=== PATIENT | female | born 1945 | race African-American/Black ===

== ENCOUNTER → 2018-01-08 | Outpatient (CLI) | payer MEDICARE ==
--- NOTE | 2018-01-09 08:33 | US ---
EXAMINATION TYPE: US kidneys/renal and bladder DATE OF EXAM: 01/08/2018 COMPARISON: NONE CLINICAL HISTORY: R31.21 microscopic hematuria. EXAM MEASUREMENTS: Right Kidney: 12.0 x 3.3 x 4.4 cm Left Kidney: 11.5 x 4.5 x 4.9 cm Morbidly obese patient. Right Kidney: No hydronephrosis or masses seen Left Kidney: No hydronephrosis or masses seen Bladder: somewhat obscured by bowel gas IMPRESSION: Unremarkable retroperitoneal ultrasound.
== END | disposition home or self-care (01) ==
LOC: RADUSWWP 15:17
PROVIDERS: ATTEND Family Medicine
DX: R31.21 Asymptomatic microscopic hematuria (principal)
CPT/HCPCS: 76770

== ENCOUNTER 2022-06-27 10:57 | Inpatient (IN) | payer MEDICARE, OTHER ==
--- NOTE | 2022-06-27 11:33 | ED ---
Abdominal Pain HPI - General Chief Complaint: Recheck/Abnormal Lab/Rx Stated Complaint: Feet leg and ABD swelling Time Seen by Provider: 06/27/22 11:08 Source: patient, family, RN notes reviewed Mode of arrival: ambulatory Limitations: no limitations - History of Present Illness Initial Comments: This is a 76-year-old female who presents to the emergency department for abdominal pain and swelling and lower extremity swelling. She was at [facility] for these symptoms 4 days ago. She had imaging done as well as biopsies. At this time there is concern for colon cancer, however definitive diagnosis is still pending per the family's understanding. She did have fluid in her abdomen at that time and had a paracentesis. The fluid has since reaccumulated, and she is complaining of severe abdominal pain. She is having regular bowel movements. Additionally, she has developed swelling in her legs bilaterally. This is also continuing to progress, and she is having pain whenever they are touched or when she tries to walk. Also states that they feel very heavy. Denies any fevers, chills, sore throat, cough, dyspnea, chest pain, palpitations, nausea, vomiting, diarrhea, back pain, or headaches. MD Complaint: abdominal pain Onset/Timin Location: diffuse - Related Data Home Medications Medication Instructions Recorded Confirmed No Known Home Medications 06/27/22 06/27/22 Allergies Allergy/AdvReac Type Severity Reaction Status Date / Time metformin Allergy Vomiting Verified 06/27/22 12:07 Review of Systems ROS Statement: Those systems with pertinent positive or pertinent negative responses have been documented in the HPI. ROS Other: All systems not noted in ROS Statement are negative. Past Medical History Past Medical History: Cancer, Hypertension Additional Past Medical History / Comment(s): CA History of Any Multi-Drug Resistant Organisms: None Reported Past Surgical History: Section Past Psychological History: No Psychological Hx Reported Smoking Status: Never smoker Past Alcohol Use History: None Reported Past Drug Use History: None Reported - Past Family History Father Family Medical History: Diabetes Mellitus Mother Family Medical History: No Reported History Additional Family Medical History / Comment(s): Mother just , she was 98yrs old. Sister(s) Family Medical History: CVA/TIA General Exam Limitations: no limitations General appearance: alert, in no apparent distress Head exam: Present: atraumatic, normocephalic, normal inspection Respiratory exam: Present: normal lung sounds bilaterally. Absent: respiratory distress, wheezes, rales, rhonchi, stridor Cardiovascular Exam: Present: regular rate, normal rhythm, normal heart sounds. Absent: systolic murmur, diastolic murmur, rubs, gallop, clicks GI/Abdominal exam: Present: distended, normal bowel sounds Extremities exam: Present: pedal edema (3+), calf tenderness Neurological exam: Present: alert, oriented X3, CN II-XII intact Psychiatric exam: Present: normal affect, normal mood Skin exam: Present: warm, dry, intact, normal color. Absent: rash Course Vital Signs 06/27/22 11:04 Temperature 97.9 F Pulse Rate 99 Respiratory 20 Rate Blood Pressure 106/63 O2 Sat by Pulse 100 Oximetry Medical Decision Making - Medical Decision Making This is a 76-year-old female who presents to the emergency department for abdominal and bilateral lower extremity pain and swelling. Lab work reveals leukocytosis and several electrolyte abnormalities. CT of the abdomen and pelvis was obtained. 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 She also has a large amount of ascites throughout the abdomen and pelvis. According to the oncology team, she did have a liver biopsy and paracentesis at [facility] earlier this week, and findings were consistent with adenocarcinoma of the colon. Patient will be admitted for therapeutic paracentesis and chemotherapy. I spoke with Katlin Lee from oncology, per her request Dr. Colon was consulted for Mediport placement and the interventional radiology and PICC team were also con consulted, as the patient will need therapeutic paracentesis and PICC line placement to begin chemo as soon as possible. Will also avoid NSAIDs and anticoagulation for the meantime per the oncology team's request. This case was discussed in detail with the attending ED physician. Presentation, findings, and treatment plan discussed in detail as well. - Lab Data Result diagrams: 06/27/22 12:42 06/27/22 12:42 Lab Results 06/27/22 06/27/22 06/27/22 Range/Units 12:42 12:42 12:42 WBC 11.9 H (3.8-10.6) k/uL RBC 3.63 L (3.80-5.40) m/uL Hgb 9.6 L (11.4-16.0) gm/dL Hct 31.5 L (34.0-46.0) % MCV 86.9 (80.0-100.0) fL MCH 26.5 (25.0-35.0) pg MCHC 30.5 L (31.0-37.0) g/dL RDW 16.5 H (11.5-15.5) % Plt Count 352 (150-450) k/uL MPV 7.7 Neutrophils % 83 % Lymphocytes % 7 % Monocytes % 7 % Eosinophils % 1 % Basophils % 1 % Neutrophils # 9.8 H (1.3-7.7) k/uL Lymphocytes # 0.8 L (1.0-4.8) k/uL Monocytes # 0.9 (0-1.0) k/uL Eosinophils # 0.1 (0-0.7) k/uL Basophils # 0.1 (0-0.2) k/uL Hypochromasia Moderate Anisocytosis Slight Sodium 135 L (137-145) mmol/L Potassium 3.9 (3.5-5.1) mmol/L Chloride 101 (98-107) mmol/L Carbon Dioxide 27 (22-30) mmol/L Anion Gap 7 mmol/L BUN 23 H (7-17) mg/dL Creatinine 0.80 (0.52-1.04) mg/dL Est GFR (CKD-EPI)AfAm 82 (>60 ml/min/1.73 sqM) Est GFR (CKD-EPI)NonAf 71 (>60 ml/min/1.73 sqM) Glucose 92 (74-99) mg/dL Calcium 7.7 L (8.4-10.2) mg/dL Total Bilirubin 0.4 (0.2-1.3) mg/dL AST 43 H (14-36) U/L ALT 9 (4-34) U/L Alkaline Phosphatase 62 (38-126) U/L NT-Pro-B Natriuret Pep 688 pg/mL Total Protein 6.0 L (6.3-8.2) g/dL Albumin 2.4 L (3.5-5.0) g/dL Amylase 45 (30-110) U/L Lipase 40 (23-300) U/L - Radiology Data Radiology results: report reviewed, image reviewed Disposition Clinical Impression: Metastatic cancer, Abdominal ascites Disposition: ADMITTED IP TO THIS HOSP
[2022-06-27 12:51] LABS: Anisocytosis Slight; Basophils # (A) 0.1 k/uL (0-0.2); Basophils % (A) 1 %; Eosinophils # (A) 0.1 k/uL (0-0.7); Eosinophils % (A) 1 %; HCT 31.5 % (34.0-46.0); HGB 9.6 gm/dL (11.4-16.0); Hypochromasia Moderate; Lymphocytes # (A) 0.8 k/uL (1.0-4.8); Lymphocytes % (A) 7 %; MCH 26.5 pg (25.0-35.0); MCHC 30.5 g/dL (31.0-37.0); MCV 86.9 fL (80.0-100.0); Mean Platelet Volume 7.7; Monocytes # (A) 0.9 k/uL (0-1.0); Monocytes % (A) 7 %; Neutrophils # (A) 9.8 k/uL (1.3-7.7); Neutrophils % (A) 83 %; Platelet Count 352 k/uL (150-450); RBC 3.63 m/uL (3.80-5.40); RDW 16.5 % (11.5-15.5); WBC 11.9 k/uL (3.8-10.6)
[2022-06-27 13:00] LABS: Albumin 2.4 g/dL (3.5-5.0); Calcium 7.7 mg/dL (8.4-10.2); Potassium 3.9 mmol/L (3.5-5.1); Total Bilirubin 0.4 mg/dL (0.2-1.3)
--- NOTE | 2022-06-27 13:54 | CT ---
EXAMINATION TYPE: CT abdomen pelvis w con DATE OF EXAM: 06/27/2022 COMPARISON: None HISTORY: Abdominal pain and distention. CT DLP: 750.3 mGycm CONTRAST: CT scan of the abdomen and pelvis is performed without Oral Contrast and with IV Contrast, patient in jected with 100ml mL of Isovue 300. FINDINGS: LUNG BASES-: Bilateral pulmonary nodules noted measuring up to 2.2 cm. Small right-sided pleural effu kali seen. LIVER/GB: No calcified gallstones. Large hepatic mass medial segment left hepatic lobe measures 11. 6 x 8.1 x 9.6 cm and is compatible with primary or secondary no additional hepatic masses are seen wi th certainty. Neoplasm. Biliary tree is of normal caliber. PANCREAS: No inflammation. No distinct mass. SPLEEN: No splenic enlargement. No lesion seen. ADRENALS: No nodule. No thickening. KIDNEYS/BLADDER: Mild left-sided hydronephrosis. Abrupt termination of the left ureter at the pelvic inlet which may reflect conglomerate adenopathy in this region. No nephrolithiasis. No distinct salvador l mass. Urinary bladder grossly unremarkable. BOWEL: There is evidence of bowel wall thickening. GENITAL ORGANS: Complex mass within the pelvis measuring 7.2 x 5.6 cm likely reflects right ovarian neoplasm. There is irregularity of the uterus noted as well with calcifications seen. Hypoattenuating lesion left ovary. Suspect underlying ovarian malignancy. LYMPH NODES: No greater than 1cm abdominal or pelvic lymph nodes are appreciated. AORTA: No significant abnormality. OSSEOUS STRUCTURES: No significant abnormality is seen. OTHER: Large amount of ascites throughout the abdomen and pelvis. There is evidence of omental caking and peritoneal seeding. Changes of anasarca. IMPRESSION: 1. Findings felt to reflect metastatic ovarian carcinoma. Neoplasm of other etiology is not excluded. There is evidence of metastatic disease to the lungs the liver the greater omentum as well as perito kirit seeding. Masslike area the left pelvic inlet resulting in mild left-sided hydronephrosis may ref lect matted bowel loops and/or underlying adenopathy.
[2022-06-27] MEDS ORDERED: HYDROcodone/APAP 5-325MG 1 EACH TAB PO PRN (15:44)
[2022-06-27] MEDS ORDERED: ONDANSETRON 4 MG/2 ML VIAL IVP PRN (15:44)
[2022-06-27] MEDS ORDERED: KETOROLAC 15 MG/ML 1 ML VIAL IVP PRN (15:44)
[2022-06-27] MEDS ORDERED: IBUPROFEN 400 MG TAB PO PRN (15:44)
[2022-06-27] MEDS ORDERED: NALOXONE 0.4 MG/ML 1 ML VIAL IV PRN (15:44)
--- NOTE | 2022-06-27 16:23 | P.CONS ---
History of Present Illness - Reason for Consult Consult date: 06/27/22 Metastatic Colon Cancer - History of Present Illness Patient was recently admitted to [facility] with worsening abdominal distention, fatigue and confusion. She was found to have ovarian mass, Liver mass, Ascites and pulmonary nodules consistent with metastatic malignant pricess, Paracentesis and liver biopsy revealed consistent with colon cancer adenocarcinoma. Daughter stated she has been worse since discharge and was brought to [place] ER last night for IVF and supportive care. She is not eating and concern of rapid gr owing cancer, she will be admitted with urgent pallaitive chemotherapy. Discussed in detail with ER Dr. 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 History of Any Multi-Drug Resistant Organisms: None Reported Past Surgical History: Section Additional Past Surgical History / Comment(s): Liver biopsy Past Anesthesia/Blood Transfusion Reactions: No Reported Reaction Past Psychological History: No Psychological Hx Reported Additional Psychological History / Comment(s): Pt resides with her daughter. She uses a walker to ambulate and has a cane and wheelchair. She needs assistance with ADLs. She can feed herself. Smoking Status: Former smoker Past Alcohol Use History: Rare Additional Past Alcohol Use History / Comment(s): Pt started smoking as a teen and quit about 1981. Past Drug Use History: None Reported - Past Family History Father Family Medical History: Diabetes Mellitus Mother Family Medical History: No Reported History Additional Family Medical History / Comment(s): Mother just , she was 98yrs old. Sister(s) Family Medical History: CVA/TIA Medications and Allergies Home Medications Medication Instructions Recorded Confirmed Type No Known Home Medications 06/27/22 06/27/22 History Allergies Allergy/AdvReac Type Severity Reaction Status Date / Time metformin Allergy Vomiting Verified 06/27/22 12:07 Physical Exam Vitals: Vital Signs Temp Pulse Resp BP Pulse Ox 06/27/22 11:04 97.9 F 99 20 106/63 100 Intake and Output 08/06/27/22 06/27/22 06:59 14:59 22:59 Other: Weight 62.596 kg 62.596 kg - Constitutional General appearance: cooperative, mild distress - EENT Eyes: EOMI ENT: NA/AT - Respiratory Respiratory: bilateral: diminished (bases) - Cardiovascular Rhythm: regularly irregular - Gastrointestinal General gastrointestinal: distended, tenderness - Integumentary Integumentary: pale - Musculoskeletal Musculoskeletal: generalized weakness - Psychiatric Psychiatric: A&O x's 3 Results CBC & Chem 7: 06/27/22 12:42 06/27/22 12:42 Labs: Abnormal Lab Results - Last 24 Hours (Table) 06/27/22 06/27/22 Range/Units 12:42 12:42 WBC 11.9 H (3.8-10.6) k/uL RBC 3.63 L (3.80-5.40) m/uL Hgb 9.6 L (11.4-16.0) gm/dL Hct 31.5 L (34.0-46.0) % MCHC 30.5 L (31.0-37.0) g/dL RDW 16.5 H (11.5-15.5) % Neutrophils # 9.8 H (1.3-7.7) k/uL Lymphocytes # 0.8 L (1.0-4.8) k/uL Sodium 135 L (137-145) mmol/L BUN 23 H (7-17) mg/dL Calcium 7.7 L (8.4-10.2) mg/dL AST 43 H (14-36) U/L Total Protein 6.0 L (6.3-8.2) g/dL Albumin 2.4 L (3.5-5.0) g/dL Comments: CT Chest abdomen and pelvis at [facility] reviewed Assessment and Plan (1) Metastatic colon cancer to liver Narrative/Plan: peritoneum, ascites fluid and lungs Patient has dramically worsened since discharged two days prior from [facility] Cytology from ascites positive for adenocarcinoma, Biopsy of liver positive for adenocarcinoma consistent with colon cancer She is now having difficulties remaining outpatient due to the large cancer burden, therefore will start emergent palliaitive chemo inpatient with FOLFIIX Mediport will need to be ordered, however to initiate chemo over weekend with FOLFOX will ask for urgent picc placement Discussed in detail with all of her children and daughter and patient Multiple questions answered, understaning palliaitive intent of treatment. Discussed with PA in ER and asked for urgent Paracentesis for confort as well Current Visit: Yes Status: Acute Code(s): C18.9 - MALIGNANT NEOPLASM OF COLON, UNSPECIFIED; C78.7 - SECONDARY MALIG NEOPLASM OF LIVER AND INTRAHEPATIC BILE DUCT SNOMED Code(s): 171159102 Plan: Check Coags Refrain from NSAIDS and AC for now Increased LFTS, PLan for chemo CAT for comfort measures (Therefore need of Picc line CAT, PAracentesis, and consult to surgery for mediport)
[2022-06-27 19:11] LABS: Partial Thromboplastin Time 23.4 sec (22.0-30.0); Prothrombin Time 10.6 sec (9.0-12.0)
[2022-06-27 19:49] LABS: Magnesium 1.8 mg/dL (1.6-2.3); Uric Acid 8.1 mg/dL (3.7-7.4)
[2022-06-27] MEDS: oxyCODONE-APAP 5-325MG 1 EACH TAB PO PRN (20:57)
[2022-06-28 02:16] LABS: % Iron Saturation 9.1 (12.00-45.00)
--- NOTE | 2022-06-28 08:01 | P.HPIM ---
History of Present Illness H&P Date: 06/27/22 Chief Complaint: Feet leg and ABD swelling 76-year-old female who presents to the emergency department for abdominal pain and swelling and lower extremity swelling. She was at [facility] for these symptoms 4 days ago. She had imaging done as well as biopsies and was found to have ovarian mass, Liver mass, Ascites and pulmonary nodules consistent with metastatic malignant pricess, Paracentesis and liver biopsy revealed consistent with colon cancer adenocarcinoma. She did have fluid in her abdomen at that time and had a paracentesis. The fluid has since reaccumulated, and she is complaining of severe abdominal pain. She is having regular bowel movements. Additionally, she has developed swelling in her legs bilaterally. This is also continuing to progress, and she is having pain whenever they are touched or when she tries to walk. Also states that they feel very heavy. Daughter stated she has been worse since discharge and was brought to [place] ER last night for IVF and supportive care. She is not eating and concern of rapid growing cancer, she will be admitted with urgent pallaitive chemotherapy and therapeutic paracentesis Lab work reveals leukocytosis and several electrolyte abnormalities. CT of the abdomen and pelvis was obtained. 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 She also has a large amount of ascites throughout the abdomen and pelvis. Dr. Colon was consulted for Mediport placement and the interventional radiology and PICC team were also con consulted, as the patient will need therapeutic paracentesis and PICC line placement to begin chemo as soon as possible. Review of Systems REVIEW OF SYSTEMS: CONSTITUTIONAL: No fever, no malaise, no fatigue. HEENT: No recent visual problems or hearing problems. Denied any sore throat. CARDIOVASCULAR: No chest pain, orthopnea, PND, no palpitations, no syncope. PULMONARY: No shortness of breath, no cough, no hemoptysis. GASTROINTESTINAL: Abdominal distention and abdominal pain. NEUROLOGICAL: No headaches, no weakness, no numbness. HEMATOLOGICAL: Denies any bleeding or petechiae. GENITOURINARY: Denies any burning micturition, frequency, or urgency. MUSCULOSKELETAL/RHEUMATOLOGICAL: Denies any joint pain, swelling, or any muscle pain. ENDOCRINE: Denies any polyuria or polydipsia. The rest of the 14-point review of systems is negative. Past Medical History Past Medical History: Cancer, Hypertension Additional Past Medical History / Comment(s): CA History of Any Multi-Drug Resistant Organisms: None Reported Past Surgical History: Section Past Psychological History: No Psychological Hx Reported Smoking Status: Never smoker Past Alcohol Use History: None Reported Past Drug Use History: None Reported - Past Family History Father Family Medical History: Diabetes Mellitus Mother Family Medical History: No Reported History Additional Family Medical History / Comment(s): Mother just , she was 98yrs old. Sister(s) Family Medical History: CVA/TIA Medications and Allergies Home Medications Medication Instructions Recorded Confirmed Type No Known Home Medications 06/27/22 06/27/22 History Allergies Allergy/AdvReac Type Severity Reaction Status Date / Time metformin Allergy Vomiting Verified 06/27/22 12:07 Physical Exam Vitals: Vital Signs Temp Pulse Resp BP Pulse Ox 06/27/22 11:04 97.9 F 99 20 106/63 100 Intake and Output 06/27/22 06/27/22 06/27/22 06:59 14:59 22:59 Other: Weight 62.596 kg General appearance: alert, in no apparent distress Head exam: Present: atraumatic, normocephalic, normal inspection Respiratory exam: Present: normal lung sounds bilaterally. Absent: respiratory distress, wheezes, rales, rhonchi, stridor Cardiovascular Exam: Present: regular rate, normal rhythm, normal heart sounds. Absent: systolic murmur, diastolic murmur, rubs, gallop, clicks GI/Abdominal exam: Present: distended, normal bowel sounds Extremities exam: Present: pedal edema (3+), calf tenderness Neurological exam: Present: alert, oriented X3, CN II-XII intact Psychiatric exam: Present: normal affect, normal mood Skin exam: Present: warm, dry, intact, normal color. Absent: rash Results CBC & Chem 7: 06/27/22 12:42 06/27/22 12:42 Labs: Abnormal Lab Results - Last 24 Hours (Table) 06/27/22 06/27/22 Range/Units 12:42 12:42 WBC 11.9 H (3.8-10.6) k/uL RBC 3.63 L (3.80-5.40) m/uL Hgb 9.6 L (11.4-16.0) gm/dL Hct 31.5 L (34.0-46.0) % MCHC 30.5 L (31.0-37.0) g/dL RDW 16.5 H (11.5-15.5) % Neutrophils # 9.8 H (1.3-7.7) k/uL Lymphocytes # 0.8 L (1.0-4.8) k/uL Sodium 135 L (137-145) mmol/L BUN 23 H (7-17) mg/dL Calcium 7.7 L (8.4-10.2) mg/dL AST 43 H (14-36) U/L Total Protein 6.0 L (6.3-8.2) g/dL Albumin 2.4 L (3.5-5.0) g/dL Assessment and Plan Assessment: 1. Metastatic colon cancer with metastasis to liver, lungs and peritoneum Patient has been evaluated by oncology; Cytology from ascites positive for adenocarcinoma, Biopsy of liver positive for adenocarcinoma consistent with colon cancer She is now having difficulties remaining outpatient due to the large cancer burden, therefore will start emergent palliaitive chemo inpatient with FOLFIIX Mediport will need to be ordered, however to initiate chemo over weekend with FOLFOX will ask for urgent picc placement - Supportive care with antiemetics and pain medication 2. Malignant ascites; patient has large abdominal distention which is comfortable; oncology recommending urgent paracentesis for comfort/therapeutic 3. Hypertension; patient not on any home antihypertensive therapy DVT prophylaxis; SCDs only CODE STATUS; full code
[2022-06-28] MEDS ORDERED: LIDOCAINE 1% INJ 10MG/ML (5 ML VIAL-PF) SQ ONE (08:45)
--- NOTE | 2022-06-28 09:04 | P.PN ---
Progress Note - Text Progress Note Date: 06/28/22 Attempted to see patient on rounds, however patient has been taken to radiology for PICC line placement. Patient is scheduled for paracentesis immediately after this PICC line placement. Consult for surgery was placed for Mediport placement. As the patient is receiving a PICC line, she will begin receiving palliative chemotherapy through the PICC line. To discuss Mediport placement when patient is available. Jaja Colon, DO
[2022-06-28 10:31] LABS: Anisocytosis Slight; Basophils # (A) 0.1 k/uL (0-0.2); Basophils % (A) 1 %; Eosinophils # (A) 0.1 k/uL (0-0.7); Eosinophils % (A) 1 %; HCT 33.8 % (34.0-46.0); HGB 10.3 gm/dL (11.4-16.0); Hypochromasia Moderate; Lymphocytes # (A) 0.8 k/uL (1.0-4.8); Lymphocytes % (A) 8 %; MCH 26.6 pg (25.0-35.0); MCHC 30.4 g/dL (31.0-37.0); MCV 87.5 fL (80.0-100.0); Mean Platelet Volume 7.6; Monocytes # (A) 0.6 k/uL (0-1.0); Monocytes % (A) 7 %; Neutrophils # (A) 7.8 k/uL (1.3-7.7); Neutrophils % (A) 83 %; Platelet Count 333 k/uL (150-450); RBC 3.87 m/uL (3.80-5.40); RDW 16.5 % (11.5-15.5); WBC 9.4 k/uL (3.8-10.6)
[2022-06-28 10:45] LABS: ALT 8 U/L (4-34); AST 38 U/L (14-36); African American GFR (CKD) >90 (>60 ml/min/1.73 sqM); Albumin 2.4 g/dL (3.5-5.0); Albumin/Globulin Ratio 0.7; Alkaline Phosphatase 76 U/L (38-126); Anion Gap 6 mmol/L; Blood Urea Nitrogen 20 mg/dL (7-17); Calcium 7.7 mg/dL (8.4-10.2); Carbon Dioxide 27 mmol/L (22-30); Chloride 102 mmol/L (98-107); Globulin 3.6 g/dL; Glucose 76 mg/dL (74-99); Non-African American GFR(CKD) 81 (>60 ml/min/1.73 sqM); Potassium 4.2 mmol/L (3.5-5.1); Sodium 135 mmol/L (137-145); Total Bilirubin 0.4 mg/dL (0.2-1.3)
--- NOTE | 2022-06-28 13:20 | P.PN ---
Subjective Progress Note Date: 06/28/22 Principal diagnosis: Metastatic colon adenocarcinoma Nolan is a 76-year-old female with a prior history of CVA with no known residual deficits who initially presented to [facility] on 06/19/2022 with progressive abdominal swelling, anasarca the upper extremities bilaterally. Abdominal imaging with CT of abdomen and pelvis without contrast on 06/19/2022 revealed right hepatic lobe mass measuring 10.6 x 8 cm along with a right adnexal mass measuring 4.9 x 5 cm and large amount of ascites. Additional MRI of the abdomen on 06/20/2022 revealed a soft tissue mass near Morison's pouch along the abdominal peritoneal lining measuring 8.1 x 2.9 x 5.1 cm. She underwent diagnostic/therapeutic paracentesis, with cytology being nondiagnostic. CT of the chest on 06/24/2022 revealed multiple bilateral pulmonary nodules and masses notable for a left upper lobe mass measuring 2.6 x 2.6 cm along with a cavitary left mid lung lesion measuring 1.[address]-guided biopsy of the soft tissue mass done on 06/24/2022 revealed moderate to poorly differentiated adenocarcinoma positive for CK 20 and CDX-2 and negative for CK 7, TTF-1, Napsin, and PAX-8. This was consistent with adenocarcinoma of a colon primary. She was discharged on 06/24/2022 from [facility]. Since discharge, she's had persistent anorexia, dehydration, and overall failure to thrive. She was taken to [facility] ED in [place] for IV fluid hydration was subsequently discharged. She's also been noted to have progressive increase in abdominal swelling concerning for recurrent malignant ascites. She was advised to present to [facility] ED for additional evaluation. CT of the abdomen and pelvis with contrast on 06/27/2022 revealed similar findings with right hepatic mass measuring 1.6 x 8.1 x 9.6 cm, right ovarian mass measuring 7.2 x 5.6 cm, and large ascites with omental caking and peritoneal seeding. There is also radiographic concern for left-sided hydronephrosis with abrupt termination of the left ureter potentially due to conglomerate adenopathy. -Underwent therapeutic paracentesis yesterday on admission -No acute events overnight -Had left PICC line placed this morning -Denies any pain currently Objective - Vital Signs Vital signs: Vital Signs Temp 97.4 F L 06/28/22 04:41 Pulse 81 06/28/22 10:10 Resp 19 06/28/22 04:41 BP 119/76 06/28/22 10:10 Pulse Ox 99 06/28/22 04:41 FiO2 Intake & Output 06/27/22 06/28/22 06/28/22 18:59 06:59 18:59 Output Total 1500 Balance -1500 Weight 62.596 kg Output: Gastric Drainage 1500 Other: Voiding Method Bedside Commode Bedside Commode # Voids 1 # Bowel Movements 1 - Constitutional Constitutional Comment(s): Cachectic and fatigued appearing General appearance: Present: no acute distress - Cardiovascular Rhythm: regular Heart sounds: normal: S1, S2 - Gastrointestinal Gastrointestinal Comment(s): Multiple peritoneal nodules in the abdominal wall palpated on exam General gastrointestinal: Present: distended, hepatomegaly. Absent: tenderness - Labs CBC & Chem 7: 06/28/22 10:16 06/28/22 10:16 Labs: Abnormal Lab Results - Last 24 Hours (Table) 06/27/22 06/27/22 06/28/22 Range/Units 12:42 12:42 07:52 Hgb (11.4-16.0) gm/dL Hct (34.0-46.0) % MCHC (31.0-37.0) g/dL RDW (11.5-15.5) % Neutrophils # (1.3-7.7) k/uL Lymphocytes # (1.0-4.8) k/uL Sodium 135 L (137-145) mmol/L BUN 23 H (7-17) mg/dL Uric Acid 8.1 H (3.7-7.4) mg/dL Calcium 7.7 L (8.4-10.2) mg/dL Iron 12 L (50-170) ug/dL TIBC 136 L (228-460) ug/dL % Saturation 9.10 L (12.00-45.00) Transferrin 97.3 L (204.0-354.0) mg/dL AST 43 H (14-36) U/L Lactate Dehydrogenase 733 H (313-618) U/L Total Protein 6.0 L (6.3-8.2) g/dL Albumin 2.4 L (3.5-5.0) g/dL Carcinoembryonic Ag 179.0 H (0.0-4.9) ng/mL Vitamin D 25-Hydroxy 25.9 L (30.0-100.0) ng/mL 06/28/22 06/28/22 Range/Units 10:16 10:16 Hgb 10.3 L (11.4-16.0) gm/dL Hct 33.8 L (34.0-46.0) % MCHC 30.4 L (31.0-37.0) g/dL RDW 16.5 H (11.5-15.5) % Neutrophils # 7.8 H (1.3-7.7) k/uL Lymphocytes # 0.8 L (1.0-4.8) k/uL Sodium 135 L (137-145) mmol/L BUN 20 H (7-17) mg/dL Uric Acid (3.7-7.4) mg/dL Calcium 7.7 L (8.4-10.2) mg/dL Iron (50-170) ug/dL TIBC (228-460) ug/dL % Saturation (12.00-45.00) Transferrin (204.0-354.0) mg/dL AST 38 H (14-36) U/L Lactate Dehydrogenase (313-618) U/L Total Protein 6.0 L (6.3-8.2) g/dL Albumin 2.4 L (3.5-5.0) g/dL Carcinoembryonic Ag (0.0-4.9) ng/mL Vitamin D 25-Hydroxy (30.0-100.0) ng/mL Assessment and Plan Assessment: Ms. Francisco is a 76-year-old female with a past medical history significant for CVA with no residual neurologic deficits who presented to [facility] on 06/19/2022 with progressive ascites and anasarca. 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 Plan: #Metastatic poorly differentiated adenocarcinoma of colon primary -Noted to be CK 20 and CDX-2 positive on liver biopsy performed at [facility] on 06/24/2022 -Has noted to have refractory abdominal ascites and persistent anorexia and dehydration since discharge -Our team spoke to the patient and her daughters regarding her current clinical presentation, with concern that this is all secondary to advanced malignancy -Following our conversation, she was admitted for inpatient chemotherapy -Given her current performance status, we will attempt to give palliative FOLFOX cycle 1 inpatient -She has received therapeutic paracentesis yesterday on admission and PICC line placement today -Consult for port placement has been placed -We anticipate she will begin palliative chemotherapy after the weekend on 06/30/2022 Vicente Tanner MD
--- NOTE | 2022-06-28 21:26 | P.PN ---
Subjective Progress Note Date: 06/28/22 76-year-old female who presents to the emergency department for abdominal pain and swelling and lower extremity swelling. She was at [facility] for these symptoms 4 days ago. She had imaging done as well as biopsies and was found to have ovarian mass, Liver mass, Ascites and pulmonary nodules consistent with metastatic malignant pricess, Paracentesis and liver biopsy revealed consistent with colon cancer adenocarcinoma. She did have fluid in her abdomen at that time and had a paracentesis. The fluid has since reaccumulated, and she is complaining of severe abdominal pain. She is having regular bowel movements. Additionally, she has developed swelling in her legs bilaterally. This is also continuing to progress, and she is having pain whenever they are touched or when she tries to walk. Also states that they feel very heavy. Daughter stated she has been worse since discharge and was brought to [place] ER last night for IVF and supportive care. She is not eating and concern of rapid growing cancer, she will be admitted with urgent pallaitive chemotherapy and therapeutic paracentesis Lab work reveals leukocytosis and several electrolyte abnormalities. CT of the abdomen and pelvis was obtained. 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 She also has a large amount of ascites throughout the abdomen and pelvis. Dr. Colon was consulted for Mediport placement and the interventional radiology and PICC team were also con consulted, as the patient will need therapeutic paracentesis and PICC line placement to begin chemo as soon as possible. Objective - Vital Signs Vital signs: Vital Signs Temp 97.4 F L 06/28/22 04:41 Pulse 84 06/28/22 13:10 Resp 19 06/28/22 04:41 BP 132/84 06/28/22 13:10 Pulse Ox 99 06/28/22 04:41 FiO2 Intake & Output 06/27/22 06/28/22 06/28/22 18:59 06:59 18:59 Output Total 1500 Balance -1500 Weight 62.596 kg Output: Gastric Drainage 1500 Other: Voiding Method Bedside Commode Bedside Commode # Voids 1 # Bowel Movements 1 - Exam General appearance: alert, in no apparent distress Head exam: Present: atraumatic, normocephalic, normal inspection Respiratory exam: Present: normal lung sounds bilaterally. Absent: respiratory distress, wheezes, rales, rhonchi, stridor Cardiovascular Exam: Present: regular rate, normal rhythm, normal heart sounds. Absent: systolic murmur, diastolic murmur, rubs, gallop, clicks GI/Abdominal exam: Present: distended, normal bowel sounds Extremities exam: Present: pedal edema (3+), calf tenderness Neurological exam: Present: alert, oriented X3, CN II-XII intact Psychiatric exam: Present: normal affect, normal mood Skin exam: Present: warm, dry, intact, normal color. Absent: rash - Labs CBC & Chem 7: 06/28/22 10:16 06/28/22 10:16 Labs: Abnormal Lab Results - Last 24 Hours (Table) 06/27/22 06/28/22 06/28/22 Range/Units 12:42 07:52 10:16 Hgb 10.3 L (11.4-16.0) gm/dL Hct 33.8 L (34.0-46.0) % MCHC 30.4 L (31.0-37.0) g/dL RDW 16.5 H (11.5-15.5) % Neutrophils # 7.8 H (1.3-7.7) k/uL Lymphocytes # 0.8 L (1.0-4.8) k/uL Sodium (137-145) mmol/L BUN (7-17) mg/dL Uric Acid 8.1 H (3.7-7.4) mg/dL Calcium (8.4-10.2) mg/dL Iron 12 L (50-170) ug/dL TIBC 136 L (228-460) ug/dL % Saturation 9.10 L (12.00-45.00) Transferrin 97.3 L (204.0-354.0) mg/dL AST (14-36) U/L Lactate Dehydrogenase 733 H (313-618) U/L Total Protein (6.3-8.2) g/dL Albumin (3.5-5.0) g/dL Carcinoembryonic Ag 179.0 H (0.0-4.9) ng/mL Vitamin D 25-Hydroxy 25.9 L (30.0-100.0) ng/mL 06/28/22 Range/Units 10:16 Hgb (11.4-16.0) gm/dL Hct (34.0-46.0) % MCHC (31.0-37.0) g/dL RDW (11.5-15.5) % Neutrophils # (1.3-7.7) k/uL Lymphocytes # (1.0-4.8) k/uL Sodium 135 L (137-145) mmol/L BUN 20 H (7-17) mg/dL Uric Acid (3.7-7.4) mg/dL Calcium 7.7 L (8.4-10.2) mg/dL Iron (50-170) ug/dL TIBC (228-460) ug/dL % Saturation (12.00-45.00) Transferrin (204.0-354.0) mg/dL AST 38 H (14-36) U/L Lactate Dehydrogenase (313-618) U/L Total Protein 6.0 L (6.3-8.2) g/dL Albumin 2.4 L (3.5-5.0) g/dL Carcinoembryonic Ag (0.0-4.9) ng/mL Vitamin D 25-Hydroxy (30.0-100.0) ng/mL Assessment and Plan Assessment: 1. Metastatic colon cancer with metastasis to liver, lungs and peritoneum Patient has been evaluated by oncology; Cytology from ascites positive for adeno carcinoma, Biopsy of liver positive for adenocarcinoma consistent with colon cancer She is now having difficulties remaining outpatient due to the large cancer burden, therefore will start emergent palliaitive chemo inpatient with FOLFIIX Mediport will need to be ordered, however to initiate chemo over weekend with FOLFOX will ask for urgent picc placement - Supportive care with antiemetics and pain medication 2. Malignant ascites; patient has large abdominal distention which is comfortable; oncology recommending urgent paracentesis for comfort/therapeutic 3. Hypertension; patient not on any home antihypertensive therapy DVT prophylaxis; SCDs only CODE STATUS; full code
[2022-06-29] MEDS: oxyCODONE-APAP 5-325MG 1 EACH TAB PO PRN ×2 (01:16→23:16)
[2022-06-29 09:22] LABS: Basophils # (A) 0.05 X 10*3/uL (0.00-0.10); Basophils % (A) 0.5 %; Eosinophils # (A) 0.06 X 10*3/uL (0.04-0.35); Eosinophils % (A) 0.6 %; HCT 29.4 % (37.2-46.3); HGB 9.2 g/dL (12.0-15.0); Immature Grans, Automated 0.4 %; Lymphocytes % (A) 12.3 %; MCH 26.6 pg (27.0-32.0); MCHC 31.3 g/dL (32.0-37.0); Mean Platelet Volume 10.1 fL (9.5-12.2); Monocytes # (A) 1.18 X 10*3/uL (0.20-1.00); Monocytes % (A) 12.1 %; NRBC Per 100 WBC 0 /100 WBCS (0.0-0.0); Neutrophils # (A) 7.21 X 10*3/uL (1.80-7.70); Neutrophils % (A) 74.1 %; Platelet Count 335 X 10*3/uL (140-440); RBC 3.46 X 10*6/uL (4.10-5.20); RDW 17.6 % (11.5-14.5); WBC 9.74 X 10*3/uL (4.50-10.00)
[2022-06-29 09:36] LABS: African American GFR (CKD) 96.3 (60.0-200.0); Anion Gap 7.6 mmol/L (10.00-18.00); BUN/Creat Ratio 24.39 Ratio (12.00-20.00); Calcium 7.9 mg/dL (8.7-10.3); Carbon Dioxide 24.9 mmol/L (20.0-27.5); Non-African American GFR(CKD) 83.1 (60.0-200.0); Potassium 4.2 mmol/L (3.5-5.5)
--- NOTE | 2022-06-29 09:50 | P.GSCN ---
History of Present Illness Consult date: 06/29/22 History of present illness: 76-year-old female with admission secondary to failure to thrive. 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 Based on oncology notes, plan is for palliative chemotherapy. Yesterday, patient did have PICC line placed to begin chemotherapy and also had paracentesis performed to relieve abdominal ascites. Review of Systems All systems: negative Past Medical History Past Medical History: Cancer, Hypertension Additional Past Medical History / Comment(s): CA History of Any Multi-Drug Resistant Organisms: None Reported Past Surgical History: Section Additional Past Surgical History / Comment(s): Liver biopsy Past Anesthesia/Blood Transfusion Reactions: No Reported Reaction Past Psychological History: No Psychological Hx Reported Smoking Status: Never smoker Past Alcohol Use History: None Reported Past Drug Use History: None Reported - Past Family History Father Family Medical History: Diabetes Mellitus Mother Family Medical History: No Reported History Additional Family Medical History / Comment(s): Mother just , she was 98yrs old. Sister(s) Family Medical History: CVA/TIA Medications and Allergies Home Medications Medication Instructions Recorded Confirmed Type No Known Home Medications 06/27/22 06/27/22 History Allergies Allergy/AdvReac Type Severity Reaction Status Date / Time metformin Allergy Vomiting Verified 06/27/22 12:07 Surgical - Exam Osteopathic Statement: *. No significant issues noted on an osteopathic structural exam other than those noted in the History and Physical/Consult. Vital Signs Temp Pulse Resp BP Pulse Ox 97.9 F 99 20 106/63 100 06/27/22 11:04 06/27/22 11:04 06/27/22 11:04 06/27/22 11:04 06/27/22 11:04 - General no distress - Eyes normal ocular movement - Neck trachea midline - Abdomen Abdomen: soft, non tender Results - Labs 06/29/22 04:36 06/29/22 04:36 Abnormal Lab Results - Last 24 Hours (Table) 06/28/22 06/28/22 06/28/22 Range/Units 07:52 10:16 10:16 RBC (4.10-5.20) X 10*6/uL Hgb 10.3 L (11.4-16.0) gm/dL Hct 33.8 L (34.0-46.0) % MCH (27.0-32.0) pg MCHC 30.4 L (31.0-37.0) g/dL RDW 16.5 H (11.5-15.5) % Neutrophils # 7.8 H (1.3-7.7) k/uL Lymphocytes # 0.8 L (1.0-4.8) k/uL Monocytes # (0.20-1.00) X 10*3/uL Sodium 135 L (137-145) mmol/L Anion Gap (10.00-18.00) mmol/L BUN 20 H (7-17) mg/dL BUN/Creatinine Ratio (12.00-20.00) Ratio Calcium 7.7 L (8.4-10.2) mg/dL AST 38 H (14-36) U/L Total Protein 6.0 L (6.3-8.2) g/dL Albumin 2.4 L (3.5-5.0) g/dL Carcinoembryonic Ag 179.0 H (0.0-4.9) ng/mL 06/29/22 06/29/22 Range/Units 04:36 04:36 RBC 3.46 L (4.10-5.20) X 10*6/uL Hgb 9.2 L (11.4-16.0) gm/dL Hct 29.4 L (34.0-46.0) % MCH 26.6 L (27.0-32.0) pg MCHC 31.3 L (31.0-37.0) g/dL RDW 17.6 H (11.5-15.5) % Neutrophils # (1.3-7.7) k/uL Lymphocytes # (1.0-4.8) k/uL Monocytes # 1.18 H (0.20-1.00) X 10*3/uL Sodium 133 L (137-145) mmol/L Anion Gap 7.60 L (10.00-18.00) mmol/L BUN (7-17) mg/dL BUN/Creatinine Ratio 24.39 H (12.00-20.00) Ratio Calcium 7.9 L (8.4-10.2) mg/dL AST (14-36) U/L Total Protein (6.3-8.2) g/dL Albumin (3.5-5.0) g/dL Carcinoembryonic Ag (0.0-4.9) ng/mL Diabetes panel 06/28/22 06/29/22 Range/Units 10:16 04:36 Sodium 135 L 133 L (137-145) mmol/L Potassium 4.2 4.2 (3.5-5.1) mmol/L Chloride 102 101 (98-107) mmol/L Carbon Dioxide 27 24.9 (22-30) mmol/L BUN 20 H 17.0 (7-17) mg/dL Creatinine 0.72 0.7 (0.52-1.04) mg/dL Glucose 76 80 (74-99) mg/dL Calcium 7.7 L 7.9 L (8.4-10.2) mg/dL AST 38 H (14-36) U/L ALT 8 (4-34) U/L Alkaline Phosphatase 76 (38-126) U/L Total Protein 6.0 L (6.3-8.2) g/dL Albumin 2.4 L (3.5-5.0) g/dL Calcium panel 06/28/22 06/29/22 Range/Units 10:16 04:36 Calcium 7.7 L 7.9 L (8.4-10.2) mg/dL Albumin 2.4 L (3.5-5.0) g/dL Pituitary panel 06/28/22 06/29/22 Range/Units 10:16 04:36 Sodium 135 L 133 L (137-145) mmol/L Potassium 4.2 4.2 (3.5-5.1) mmol/L Chloride 102 101 (98-107) mmol/L Carbon Dioxide 27 24.9 (22-30) mmol/L BUN 20 H 17.0 (7-17) mg/dL Creatinine 0.72 0.7 (0.52-1.04) mg/dL Glucose 76 80 (74-99) mg/dL Calcium 7.7 L 7.9 L (8.4-10.2) mg/dL Adrenal panel 06/28/22 06/29/22 Range/Units 10:16 04:36 Sodium 135 L 133 L (137-145) mmol/L Potassium 4.2 4.2 (3.5-5.1) mmol/L Chloride 102 101 (98-107) mmol/L Carbon Dioxide 27 24.9 (22-30) mmol/L BUN 20 H 17.0 (7-17) mg/dL Creatinine 0.72 0.7 (0.52-1.04) mg/dL Glucose 76 80 (74-99) mg/dL Calcium 7.7 L 7.9 L (8.4-10.2) mg/dL Total Bilirubin 0.4 (0.2-1.3) mg/dL AST 38 H (14-36) U/L ALT 8 (4-34) U/L Alkaline Phosphatase 76 (38-126) U/L Total Protein 6.0 L (6.3-8.2) g/dL Albumin 2.4 L (3.5-5.0) g/dL Assessment and Plan Plan: 68-year-old female with metastatic colon cancer. Currently, findings concerning for failure to thrive. PICC line was placed for chemo induction. According to oncology notes, chemotherapy in this case will be palliative. As the PICC line was already placed, I will discuss further with oncology on whether port is necessary at this time, as chemotherapy is for palliative purposes. Further recommendations to follow.
--- NOTE | 2022-06-29 14:27 | P.PN ---
Subjective Progress Note Date: 06/29/22 Principal diagnosis: Metastatic colon adenocarcinoma Nolan is a 76-year-old female with a prior history of CVA with no known residual deficits who initially presented to [facility] on 06/19/2022 with progressive abdominal swelling, anasarca the upper extremities bilaterally. Abdominal imaging with CT of abdomen and pelvis without contrast on 06/19/2022 revealed right hepatic lobe mass measuring 10.6 x 8 cm along with a right adnexal mass measuring 4.9 x 5 cm and large amount of ascites. Additional MRI of the abdomen on 06/20/2022 revealed a soft tissue mass near Morison's pouch along the abdominal peritoneal lining measuring 8.1 x 2.9 x 5.1 cm. She underwent diagnostic/therapeutic paracentesis, with cytology being nondiagnostic. CT of the chest on 06/24/2022 revealed multiple bilateral pulmonary nodules and masses notable for a left upper lobe mass measuring 2.6 x 2.6 cm along with a cavitary left mid lung lesion measuring 1.[address]-guided biopsy of the soft tissue mass done on 06/24/2022 revealed moderate to poorly differentiated adenocarcinoma positive for CK 20 and CDX-2 and negative for CK 7, TTF-1, Napsin, and PAX-8. This was consistent with adenocarcinoma of a colon primary. She was discharged on 06/24/2022 from [facility]. Since discharge, she's had persistent anorexia, dehydration, and overall failure to thrive. She was taken to [facility] in [place] for IV fluid hydration was subsequently discharged. She's also been noted to have progressive increase in abdominal swelling concerning for recurrent malignant ascites. She was advised to present to [facility] ED for additional evaluation. CT of the abdomen and pelvis with contrast on 06/27/2022 revealed similar findings with right hepatic mass measuring 1.6 x 8.1 x 9.6 cm, right ovarian mass measuring 7.2 x 5.6 cm, and large ascites with omental caking and peritoneal seeding. There is also radiographic concern for left-sided hydronephrosis with abrupt termination of the left ureter potentially due to conglomerate adenopathy. -No acute events overnight -Denies any pain currently Objective - Vital Signs Vital signs: Vital Signs Temp 97.6 F 06/29/22 11:41 Pulse 83 06/29/22 11:41 Resp 15 06/29/22 11:41 BP 123/79 06/29/22 11:41 Pulse Ox 99 06/29/22 11:41 FiO2 Intake & Output 06/28/22 06/29/22 06/29/22 18:59 06:59 18:59 Intake Total 780 Output Total 1500 Balance -1500 780 Intake: Oral 780 Output: Gastric Drainage 1500 Other: Voiding Method Bedside Commode Bedside Commode # Voids 3 2 # Bowel Movements 1 1 - Constitutional Constitutional Comment(s): cachectic General appearance: Present: no acute distress, thin - EENT Eyes: Present: EOMI - Respiratory Respiratory: bilateral: CTA - Cardiovascular Rhythm: regular - Gastrointestinal Gastrointestinal Comment(s): Palpable peritoneal deposits in the abdominal wall General gastrointestinal: Present: distended, hepatomegaly, normal bowel sounds - Integumentary Integumentary: Absent: rash - Neurologic Neurologic: Present: CNII-XII intact. Absent: focal deficits - Psychiatric Psychiatric: Present: A&O x's 3 - Labs CBC & Chem 7: 06/29/22 04:36 06/29/22 04:36 Labs: Abnormal Lab Results - Last 24 Hours (Table) 06/29/22 06/29/22 Range/Units 04:36 04:36 RBC 3.46 L (4.10-5.20) X 10*6/uL Hgb 9.2 L (12.0-15.0) g/dL Hct 29.4 L (37.2-46.3) % MCH 26.6 L (27.0-32.0) pg MCHC 31.3 L (32.0-37.0) g/dL RDW 17.6 H (11.5-14.5) % Monocytes # 1.18 H (0.20-1.00) X 10*3/uL Sodium 133 L (135-145) mmol/L Anion Gap 7.60 L (10.00-18.00) mmol/L BUN/Creatinine Ratio 24.39 H (12.00-20.00) Ratio Calcium 7.9 L (8.7-10.3) mg/dL - Imaging and Cardiology CT scan - abdomen: report reviewed, image reviewed Assessment and Plan Assessment: Ms. Francisco is a 76-year-old female with a past medical history significant for CVA with no residual neurologic deficits who presented to [facility] on 06/19/2022 with progressive ascites and anasarca. 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 Plan: #Metastatic poorly differentiated adenocarcinoma of colon primary -Noted to be CK 20 and CDX-2 positive on liver biopsy performed at [facility] on 06/24/2022 -Has noted to have refractory abdominal ascites and persistent anorexia and dehydration since discharge -Our team spoke to the patient and her daughters regarding her current clinical presentation, with concern that this is all secondary to advanced malignancy -Following our conversation, she was admitted for inpatient chemotherapy -Given her current performance status, we will attempt to give palliative FOLFOX cycle 1 inpatient -She has received therapeutic paracentesis and PICC line placement on 06/28/2022 -After discussion with Dr. Colon, we will hold on port placement for now and assess how she will respond to cycle 1 of treatment -I did discuss her overall poor prognosis with her son, who arrived from [facility]. We did discuss that there is high likelihood she may not respond to treatment given her advanced disease. Should that happen, we agreed to focus on palliative measures as opposed to aggressive treatment -We anticipate she will begin palliative chemotherapy on 06/30/2022 #Iron deficiency -Found to have low iron and percent saturation -Ferritin likely falsely elevated given inflammation from disease burden -Will begin IV ferric gluconate 125 mg daily x 3
--- NOTE | 2022-06-29 16:37 | P.PN ---
Progress Note - Text Progress Note Date: 06/29/22 Case was discussed with Dr. Tanner. As the patient already has a PICC line placed, this will be used for induction of chemotherapy. We will assess how the patient is tolerating the first cycle of chemotherapy and if any anticipation for longer term requirement of intravenous access, we will plan for Mediport placement. Jaja Colon, DO
--- NOTE | 2022-06-29 18:11 | P.PN ---
Subjective Progress Note Date: 06/29/22 76-year-old female who presents to the emergency department for abdominal pain and swelling and lower extremity swelling. She was at [facility] for these symptoms 4 days ago. She had imaging done as well as biopsies and was found to have ovarian mass, Liver mass, Ascites and pulmonary nodules consistent with metastatic malignant pricess, Paracentesis and liver biopsy revealed consistent with colon cancer adenocarcinoma. She did have fluid in her abdomen at that time and had a paracentesis. The fluid has since reaccumulated, and she is complaining of severe abdominal pain. She is having regular bowel movements. Additionally, she has developed swelling in her legs bilaterally. This is also continuing to progress, and she is having pain whenever they are touched or when she tries to walk. Also states that they feel very heavy. Daughter stated she has been worse since discharge and was brought to [place] ER last night for IVF and supportive care. She is not eating and concern of rapid growing cancer, she will be admitted with urgent pallaitive chemotherapy and therapeutic paracentesis Lab work reveals leukocytosis and several electrolyte abnormalities. CT of the abdomen and pelvis was obtained. 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 She also has a large amount of ascites throughout the abdomen and pelvis. Dr. Colon was consulted for Mediport placement and the interventional radiology and PICC team were also con consulted, as the patient will need therapeutic paracentesis and PICC line placement to begin chemo as soon as possible. 06/29/2022 Patient is seen and evaluated resting comfortably in bed; family members are at bedside Patient has biopsy-proven poorly differentiated adenocarcinoma the colon with metastases to liver, peritoneum, right ovary and lungs; has been admitted to the hospital for refractory abdominal ascites and failure to thrive; patient has undergone paracentesis with removal of 1.5 L of fluid Oncology on board and planning for palliative chemotherapy; PICC line is in place Objective - Vital Signs Vital signs: Vital Signs Temp 97.6 F 06/29/22 11:41 Pulse 83 06/29/22 11:41 Resp 15 06/29/22 11:41 BP 123/79 06/29/22 11:41 Pulse Ox 99 06/29/22 11:41 FiO2 Intake & Output 06/28/22 06/29/22 06/29/22 18:59 06:59 18:59 Intake Total 780 Output Total 1500 Balance -1500 780 Intake: Oral 780 Output: Gastric Drainage 1500 Other: Voiding Method Bedside Commode Bedside Commode # Voids 3 2 # Bowel Movements 1 1 - Exam General appearance: alert, in no apparent distress Head exam: Present: atraumatic, normocephalic, normal inspection Respiratory exam: Present: normal lung sounds bilaterally. Absent: respiratory distress, wheezes, rales, rhonchi, stridor Cardiovascular Exam: Present: regular rate, normal rhythm, normal heart sounds. Absent: systolic murmur, diastolic murmur, rubs, gallop, clicks GI/Abdominal exam: Present: distended, normal bowel sounds Extremities exam: Present: pedal edema (3+), calf tenderness Neurological exam: Present: alert, oriented X3, CN II-XII intact Psychiatric exam: Present: normal affect, normal mood Skin exam: Present: warm, dry, intact, normal color. Absent: rash - Labs CBC & Chem 7: 06/29/22 04:36 06/29/22 04:36 Labs: Abnormal Lab Results - Last 24 Hours (Table) 06/28/22 06/29/22 06/29/22 Range/Units 07:52 04:36 04:36 RBC 3.46 L (4.10-5.20) X 10*6/uL Hgb 9.2 L (12.0-15.0) g/dL Hct 29.4 L (37.2-46.3) % MCH 26.6 L (27.0-32.0) pg MCHC 31.3 L (32.0-37.0) g/dL RDW 17.6 H (11.5-14.5) % Monocytes # 1.18 H (0.20-1.00) X 10*3/uL Sodium 133 L (135-145) mmol/L Anion Gap 7.60 L (10.00-18.00) mmol/L BUN/Creatinine Ratio 24.39 H (12.00-20.00) Ratio Calcium 7.9 L (8.7-10.3) mg/dL Carcinoembryonic Ag 179.0 H (0.0-4.9) ng/mL Assessment and Plan Assessment: 1. Metastatic colon cancer with metastasis to liver, lungs and peritoneum Patient has been evaluated by oncology; Cytology from ascites positive for adenocarcinoma, Biopsy of liver positive for adenocarcinoma consistent with colon cancer She is now having difficulties remaining outpatient due to the large cancer burden, therefore will start emergent palliaitive chemo inpatient with FOLFIIX Mediport will need to be ordered, however to initiate chemo over weekend with FOLFOX will ask for urgent picc placement - Supportive care with antiemetics and pain medication 2. Malignant ascites; patient has large abdominal distention which is comfortable; oncology recommending urgent paracentesis for comfort/therapeutic 3. Hypertension; patient not on any home antihypertensive therapy DVT prophylaxis; SCDs only CODE STATUS; full code
[2022-06-29] MEDS ORDERED: SODIUM FERRIC GLUCONAT-SUCROSE 125 MG in SODIUM CHLORIDE 0.9% 100 ML IVPB SCH (19:00)
[2022-06-30] MEDS ORDERED: fentaNYL (PF) 50 MCG/ML 2 ML AMP IV PRN (05:59)
--- NOTE | 2022-06-30 08:44 | US ---
Ultrasound-guided paracentesis. DATE OF EXAM: 06/28/2022 CLINICAL HISTORY: Ascites The procedure was discussed with the patient. The risks, complications, benefits, and alternatives we re discussed and any questions were answered. Informed consent was obtained. The patient was placed s upine on the ultrasound table and prepped and draped in the usual sterile fashion. All elements of maximal barrier technique were utilized. Under ultrasound guidance, access into the left lower quadrant was obtained, via the paracentesis catheter system and direct ultrasound guidance . Approximately 1.5 liters of straw-colored fluid was removed. The patient was stable throughout the pr ocedure and remained stable upon discharge from Department of Radiology. IMPRESSION: Successful paracentesis under ultrasound guidance.
--- NOTE | 2022-06-30 08:49 | IR ---
PICC LINE PLACEMENT: HISTORY: Infection requiring long-term antibiotic therapy PROCEDURE: Ultrasound and fluoroscopic guidance of PICC line placement. COMPLICATIONS: None ANESTHESIA: 1. 1% Lidocaine locally. FINDINGS/TECHNIQUE: The procedure was explained to the patient. The risks, complications, benefits and alternatives were discussed and any questions were answered. Informed consent was obtained. The patient was placed supine on the fluoroscopic table and prepped and draped in the usual sterile fash ion. Utilizing a 21 gauge needle and sonographic and fluoroscopic guidance, access in the left brac hial vein was achieved and there is placement of a 0.018 guidewire. The vein is patent. A 4-F sheat h was placed over the guidewire. The guidewire and dilator were removed and a 4-F. PICC line was christiana nadya through the sheath with the tip at the level of the SVC. The sheath was removed, the catheter wa s flushed and sutured into position. The patient was stable throughout the procedure and remained st able upon discharge from the Department of Radiology. The vein puncture was patent under ultrasound. A jones scale image was obtained to document patency of the vein punctured. All elements of the maximal barrier technique were utilized. FLUOROSCOPY TIME: 0.1 minutes and one image submitted IMPRESSION: Successful PICC line placement under ultrasound and fluoroscopic guidance.
[2022-06-30] MEDS: LACTATED RINGERS 1,000 ML IV SCH (08:59)
[2022-06-30] MEDS: SODIUM FERRIC GLUCONAT-SUCROSE 125 MG in SODIUM CHLORIDE 0.9% 100 ML IVPB SCH ×2 (09:01→12:39)
[2022-06-30 09:12] LABS: Basophils # (A) 0.06 X 10*3/uL (0.00-0.10); Basophils % (A) 0.6 %; Eosinophils # (A) 0.07 X 10*3/uL (0.04-0.35); Eosinophils % (A) 0.7 %; HCT 28.4 % (37.2-46.3); HGB 8.7 g/dL (12.0-15.0); Immature Grans, Automated 0.3 %; Lymphocytes # (A) 1.34 X 10*3/uL (0.90-5.00); Lymphocytes % (A) 14.1 %; MCH 26.3 pg (27.0-32.0); MCHC 30.6 g/dL (32.0-37.0); MCV 85.8 fL (80.0-97.0); Mean Platelet Volume 10.3 fL (9.5-12.2); Monocytes % (A) 11.6 %; NRBC Per 100 WBC 0 /100 WBCS (0.0-0.0); Neutrophils # (A) 6.92 X 10*3/uL (1.80-7.70); Neutrophils % (A) 72.7 %; Platelet Count 324 X 10*3/uL (140-440); RBC 3.31 X 10*6/uL (4.10-5.20); RDW 17.3 % (11.5-14.5); WBC 9.52 X 10*3/uL (4.50-10.00)
[2022-06-30 09:29] LABS: African American GFR (CKD) 96.2 (60.0-200.0); Albumin/Globulin Ratio 0.59 (1.60-3.17); Anion Gap 7.4 mmol/L (10.00-18.00); BUN/Creat Ratio 18.71 Ratio (12.00-20.00); Blood Urea Nitrogen 13.1 mg/dL (9.0-27.0); Calcium 7.8 mg/dL (8.7-10.3); Carbon Dioxide 24.6 mmol/L (20.0-27.5); Globulin 3.4 g/dL (1.6-3.3); Potassium 4.4 mmol/L (3.5-5.5); Total Bilirubin 0.3 mg/dL (0.30-1.20); Total Protein 5.4 g/dL (6.2-8.2)
[2022-06-30] MEDS ORDERED: FAMOTIDINE 20 MG/2 ML VIAL IV ONE (15:00)
[2022-06-30] MEDS ORDERED: ONDANSETRON 16 MG in SODIUM CHLORIDE 0.9% 50 ML IVPB ONE (15:00)
[2022-06-30] MEDS ORDERED: DEXAMETHASONE SOD PHOSPHATE 10 MG/ML 1 ML VIAL IV ONE (15:00)
[2022-06-30] MEDS ORDERED: OXALIPLATIN IV ONE ×3 (16:00)
[2022-06-30] MEDS ORDERED: LEUCOVORIN IV ONE ×3 (16:00)
[2022-06-30] MEDS ORDERED: WATER IV ONE ×6 (16:00)
[2022-06-30] MEDS ORDERED: DEXTROSE 5% IV ONE ×6 (16:00)
--- NOTE | 2022-06-30 16:35 | P.PN ---
Subjective Progress Note Date: 06/30/22 Principal diagnosis: metastatic colon adenocarcinoma In follow-up today, patient denies any nausea, vomiting, abdominal distention persists but she denies any pain. She has not ate yet this morning but states she does have an appetite. She does recall that palliative chemotherapy was going to start today. Objective - Vital Signs Vital signs: Vital Signs Temp 97.8 F 06/30/22 11:25 Pulse 65 06/30/22 11:25 Resp 16 06/30/22 11:25 BP 152/92 06/30/22 11:25 Pulse Ox 100 06/30/22 11:25 FiO2 Intake & Output 06/29/22 06/30/22 06/30/22 18:59 06:59 18:59 Intake Total 0 Balance 0 Intake: Oral 0 Other: Voiding Method Bedside Commode Bedside Commode Bedside Commode # Voids 3 0 - Constitutional General appearance: Present: cooperative, no acute distress, thin - EENT Eyes: Present: anicteric sclerae, EOMI ENT: Present: hearing grossly normal - Respiratory Respiratory: bilateral: CTA, diminished (bases) - Cardiovascular Rhythm: regular Heart sounds: normal: S1, S2 - Peripheral edema leg Peripheral Edema: bilateral: 1+ - Gastrointestinal General gastrointestinal: Present: distended, normal bowel sounds, soft - Neurologic Neurologic: Present: CNII-XII intact (grossly) - Musculoskeletal Musculoskeletal: Present: generalized weakness, strength equal bilaterally - Psychiatric Psychiatric: Present: A&O x's 3, appropriate affect, intact judgment & insight - Labs CBC & Chem 7: 06/30/22 04:52 06/30/22 04:52 Labs: Abnormal Lab Results - Last 24 Hours (Table) 06/30/22 06/30/22 Range/Units 04:52 04:52 RBC 3.31 L (4.10-5.20) X 10*6/uL Hgb 8.7 L (12.0-15.0) g/dL Hct 28.4 L (37.2-46.3) % MCH 26.3 L (27.0-32.0) pg MCHC 30.6 L (32.0-37.0) g/dL RDW 17.3 H (11.5-14.5) % Monocytes # 1.10 H (0.20-1.00) X 10*3/uL Anion Gap 7.40 L (10.00-18.00) mmol/L Calcium 7.8 L (8.7-10.3) mg/dL AST 36 H (13-35) U/L ALT 5 L (8-44) U/L Total Protein 5.4 L (6.2-8.2) g/dL Albumin 2.0 L (3.8-4.9) g/dL Globulin 3.4 H (1.6-3.3) g/dL Albumin/Globulin Ratio 0.59 L (1.60-3.17) g/dL Assessment and Plan (1) Abdominal ascites Current Visit: Yes Status: Acute Priority: High Code(s): R18.8 - OTHER ASCITES SNOMED Code(s): 504653754 (2) Metastatic colon cancer to liver Current Visit: Yes Status: Acute Priority: High Code(s): C18.9 - MALIGNANT NEOPLASM OF COLON, UNSPECIFIED; C78.7 - SECONDARY MALIG NEOPLASM OF LIVER AND INTRAHEPATIC BILE DUCT SNOMED Code(s): 312326414 Plan: Patient is status post 1.5 L of fluid removed from the abdomen. She does have relief of distention and discomfort in the abdomen. Orders sent to start FOLFOX without 5-FU bolus. Patient has had a left upper extremity PICC line placed. Patient did receive parenteral iron for iron deficient anemia. Labs will continue to be monitored while inpatient. Will address code status with pt when family is present. attests: I preformed H&P, seen and examined patient, developed impression and plan of care. Discussed with dictator. Agree with dictation, documented as a scribe
[2022-06-30] MEDS ORDERED: SODIUM CHLORIDE 0.9% IV ONE (18:00)
[2022-06-30] MEDS ORDERED: FLUOROURACIL IV ONE (18:00)
[2022-06-30] MEDS: oxyCODONE-APAP 5-325MG 1 EACH TAB PO PRN (21:21)
--- NOTE | 2022-07-01 00:32 | P.PN ---
Subjective Progress Note Date: 06/30/22 76-year-old female who presents to the emergency department for abdominal pain and swelling and lower extremity swelling. She was at [facility] for these symptoms 4 days ago. She had imaging done as well as biopsies and was found to have ovarian mass, Liver mass, Ascites and pulmonary nodules consistent with metastatic malignant pricess, Paracentesis and liver biopsy revealed consistent with colon cancer adenocarcinoma. She did have fluid in her abdomen at that time and had a paracentesis. The fluid has since reaccumulated, and she is complaining of severe abdominal pain. She is having regular bowel movements. Additionally, she has developed swelling in her legs bilaterally. This is also continuing to progress, and she is having pain whenever they are touched or when she tries to walk. Also states that they feel very heavy. Daughter stated she has been worse since discharge and was brought to [place] ER last night for IVF and supportive care. She is not eating and concern of rapid growing cancer, she will be admitted with urgent pallaitive chemotherapy and therapeutic paracentesis Lab work reveals leukocytosis and several electrolyte abnormalities. CT of the abdomen and pelvis was obtained. 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 She also has a large amount of ascites throughout the abdomen and pelvis. Dr. Colon was consulted for Mediport placement and the interventional radiology and PICC team were also con consulted, as the patient will need therapeutic paracentesis and PICC line placement to begin chemo as soon as possible. 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 Colon following. Plan was for possible mediport placement although has received a PICC line and will hold of on mediport for now. Patient is status post paracentesis with ascites and reports her abdomen pain and distention has improved. Patient reports to tolerating diet. No reports of nausea or vomiting noted. Patient is afebrile and denies chest pain or shortness of breath. Patient is to start palliative chemo today. Recommend repeat am labs. Review of systems: Constitutional: No reports of fatigue, fever, or chills Cardiovascular: No reports of chest pain or palpitations Respiratory: No reports of shortness of breath or cough GI: No reports of nausea, vomiting, or diarrhea, reports improvement in abdominal pain and distention : No reports of dysuria or retention Neurovascular: reports of generalized weakness All medications have been reviewed Active Medications Hydrocodone Bitart/Acetaminophen (Hydrocodone/Apap 5-325mg 1 Each Tab) 1 each PO Q4HR PRN PRN Reason: Moderate Pain Fentanyl Citrate (Fentanyl (Pf) 50 Mcg/Ml 2 Ml Amp) 50 mcg IV Q3M PRN PRN Reason: Phase I - Pain Control Stop: 07/01/22 06:00 Lactated Ringer's (Lactated Ringers) 1,000 mls @ 20 mls/hr IV .Q24H [facility] Last Admin: 06/30/22 08:59 Dose: Not Given Ferric Sodium Gluconate 125 mg (/ Sodium Chloride) 110 mls @ 100 mls/hr IVPB DAILY [facility] Last Admin: 06/30/22 09:01 Dose: 100 mls/hr Naloxone HCl (Naloxone 0.4 Mg/Ml 1 Ml Vial) 0.2 mg IV Q2M PRN PRN Reason: Opioid Reversal Ondansetron HCl (Ondansetron 4 Mg/2 Ml Vial) 4 mg IVP Q8HR PRN PRN Reason: Nausea And Vomiting Oxycodone/Acetaminophen (Oxycodone-Apap 5-325mg 1 Each Tab) 1 each PO Q4HR PRN PRN Reason: Severe Pain Last Admin: 06/29/22 23:16 Dose: 1 each Physical exam: General appearance: alert, lying in bed, well developed, well nourished Head exam: Present: atraumatic, normocephalic, normal inspection Respiratory exam: diminished breath sounds bilaterally with no wheezing or rhonchi noted Cardiovascular Exam: S1, S2 muffled GI/Abdominal exam: soft, mildly distended, normal bowel sounds, no guarding or rigidity noted Extremities exam: pedal edema (3+), calf tenderness Neurological exam: alert, oriented X3, CN II-XII intact Psychiatric exam: normal affect, normal mood Skin exam: warm, dry, intact, normal color. Absent: rash Assessment: Metastatic colon cancer with metastasis to liver, lungs and peritoneum Malignant ascites; status post paracentesis of 1.5 liters removed on 06/28 Hypertension DVT prophylaxis GI prophylaxis full code Plan: Patient has received a PICC line and is to start palliative chemotherapy ONcology following and chemo will be started today, to address code status with family as patient is full code at this time Patient is status post paracentesis for ascites and reports to feeling better and hungry, able to eat Encouraged increased activity as tolerated. Recommend to closely monitor labs and vital signs. Labs ordered for am. Due to multiple complex medical issues, overall prognosis is extremely guarded. The impression and plan of care has been dictated by Gretel George, Nurse Practitioner as directed. Dr. Darryn MD I have performed a history and examination and MDM of this patient, discussed the same with the dictator, and agree with the dictator's assessment and plan as written ,documented as a scribe. Based on total visit time, I have performed more than 50% of the visit. Objective - Vital Signs Vital signs: Vital Signs Temp 97.9 F 06/30/22 05:00 Pulse 76 06/30/22 05:00 Resp 18 06/30/22 05:00 BP 149/82 06/30/22 05:00 Pulse Ox 97 06/30/22 05:00 FiO2 Intake & Output 06/29/22 06/30/22 06/30/22 18:59 06:59 18:59 Intake Total 0 Balance 0 Intake: Oral 0 Other: Voiding Method Bedside Commode Bedside Commode Bedside Commode # Voids 3 0 - Labs CBC & Chem 7: 06/30/22 04:52 06/30/22 04:52 Labs: Abnormal Lab Results - Last 24 Hours (Table) 06/30/22 06/30/22 Range/Units 04:52 04:52 RBC 3.31 L (4.10-5.20) X 10*6/uL Hgb 8.7 L (12.0-15.0) g/dL Hct 28.4 L (37.2-46.3) % MCH 26.3 L (27.0-32.0) pg MCHC 30.6 L (32.0-37.0) g/dL RDW 17.3 H (11.5-14.5) % Monocytes # 1.10 H (0.20-1.00) X 10*3/uL Anion Gap 7.40 L (10.00-18.00) mmol/L Calcium 7.8 L (8.7-10.3) mg/dL AST 36 H (13-35) U/L ALT 5 L (8-44) U/L Total Protein 5.4 L (6.2-8.2) g/dL Albumin 2.0 L (3.8-4.9) g/dL Globulin 3.4 H (1.6-3.3) g/dL Albumin/Globulin Ratio 0.59 L (1.60-3.17) g/dL
[2022-07-01] MEDS: LACTATED RINGERS 1,000 ML IV SCH (05:57)
[2022-07-01] MEDS: SODIUM FERRIC GLUCONAT-SUCROSE 125 MG in SODIUM CHLORIDE 0.9% 100 ML IVPB SCH (08:39)
[2022-07-01 10:22] LABS: Basophils # (A) 0.02 X 10*3/uL (0.00-0.10); Basophils % (A) 0.2 %; Eosinophils # (A) 0 X 10*3/uL (0.04-0.35); Eosinophils % (A) 0 %; HCT 32.8 % (37.2-46.3); HGB 10.1 g/dL (12.0-15.0); Immature Grans, Automated 0.4 %; Lymphocytes # (A) 0.77 X 10*3/uL (0.90-5.00); Lymphocytes % (A) 6.3 %; MCHC 30.8 g/dL (32.0-37.0); MCV 84.5 fL (80.0-97.0); Monocytes # (A) 0.38 X 10*3/uL (0.20-1.00); Monocytes % (A) 3.1 %; NRBC Per 100 WBC 0 /100 WBCS (0.0-0.0); Neutrophils # (A) 10.96 X 10*3/uL (1.80-7.70); Platelet Count 305 X 10*3/uL (140-440); RBC 3.88 X 10*6/uL (4.10-5.20); RDW 17.5 % (11.5-14.5); WBC 12.18 X 10*3/uL (4.50-10.00)
[2022-07-01 10:40] LABS: African American GFR (CKD) 96.2 (60.0-200.0); Albumin 2.5 g/dL (3.8-4.9); Albumin/Globulin Ratio 0.68 (1.60-3.17); Anion Gap 8.8 mmol/L (10.00-18.00); BUN/Creat Ratio 18.57 Ratio (12.00-20.00); Calcium 8.1 mg/dL (8.7-10.3); Carbon Dioxide 24.2 mmol/L (20.0-27.5); Globulin 3.7 g/dL (1.6-3.3); Potassium 5.1 mmol/L (3.5-5.5); Total Bilirubin 0.3 mg/dL (0.30-1.20); Total Protein 6.2 g/dL (6.2-8.2)
[2022-07-01] MEDS: oxyCODONE-APAP 5-325MG 1 EACH TAB PO PRN (15:55)
--- NOTE | 2022-07-01 15:56 | P.PN ---
Subjective Progress Note Date: 07/01/22 Principal diagnosis: metastatic colon adenocarcinoma In follow-up today, patient is in good spirits, she denies any side effects from chemo, no new c/o. She is wanting food made by her son. No other c/o. Objective - Vital Signs Vital signs: Vital Signs Temp 97.5 F L 07/01/22 12:02 Pulse 84 07/01/22 12:02 Resp 16 07/01/22 12:02 BP 152/87 07/01/22 12:02 Pulse Ox 100 07/01/22 12:02 FiO2 Intake & Output 06/30/22 07/01/22 07/01/22 18:59 06:59 18:59 Intake Total 662 Balance 662 Intake: Intake, IV Titration 62 Amount fluorouraciL 3,950 mg In 62 Sodium Chloride 0.9% 250 ml @ 7.152 mls/hr IV ONCE ONE Rx#:[id number] Oral 600 Other: Voiding Method Bedside Commode Bedside Commode # Voids 2 2 - Constitutional General appearance: Present: cooperative, no acute distress, thin (petite) - EENT Eyes: Present: anicteric sclerae, EOMI ENT: Present: hearing grossly normal - Respiratory Respiratory: bilateral: CTA - Cardiovascular Rhythm: regular Heart sounds: normal: S1, S2 Abnormal Heart Sounds: Absent: systolic murmur, diastolic murmur, rub, S3 Gallop, S4 Gallop, click, other - Gastrointestinal General gastrointestinal: Present: distended, normal bowel sounds, soft - Neurologic Neurologic: Present: CNII-XII intact - Musculoskeletal Musculoskeletal: Present: strength equal bilaterally - Psychiatric Psychiatric: Present: A&O x's 3, appropriate affect, intact judgment & insight - Labs CBC & Chem 7: 07/01/22 05:13 07/01/22 05:13 Labs: Abnormal Lab Results - Last 24 Hours (Table) 06/28/22 07/01/22 07/01/22 Range/Units 07:52 05:13 05:13 WBC 12.18 H (4.50-10.00) X 10*3/uL RBC 3.88 L (4.10-5.20) X 10*6/uL Hgb 10.1 L (12.0-15.0) g/dL Hct 32.8 L (37.2-46.3) % MCH 26.0 L (27.0-32.0) pg MCHC 30.8 L (32.0-37.0) g/dL RDW 17.5 H (11.5-14.5) % Immature Gran # 0.05 H (0.00-0.04) X 10*3/uL Neutrophils # 10.96 H (1.80-7.70) X 10*3/uL Lymphocytes # 0.77 L (0.90-5.00) X 10*3/uL Eosinophils # 0 L (0.04-0.35) X 10*3/uL Sodium 131 L (135-145) mmol/L Anion Gap 8.80 L (10.00-18.00) mmol/L Calcium 8.1 L (8.7-10.3) mg/dL Albumin 2.5 L (3.8-4.9) g/dL Globulin 3.7 H (1.6-3.3) g/dL Albumin/Globulin Ratio 0.68 L (1.60-3.17) g/dL Vitamin B1 31 L (38-122) ug/L Assessment and Plan (1) Abdominal ascites Current Visit: Yes Status: Acute Priority: High Code(s): R18.8 - OTHER ASCITES SNOMED Code(s): 102176258 (2) Metastatic colon cancer to liver Current Visit: Yes Status: Acute Priority: High Code(s): C18.9 - MALIGNANT NEOPLASM OF COLON, UNSPECIFIED; C78.7 - SECONDARY MALIG NEOPLASM OF LIVER AND INTRAHEPATIC BILE DUCT SNOMED Code(s): 143514929 Plan: Patient is status post 1.5 L of fluid removed from the abdomen on the 2nd. She cont to have relief of distention and discomfort in the abdomen post para. FOLFOX without 5-FU bolus started yesterday, she is currently on the 46 hour 5FU infusion. No significant SE reported. She will complete 1st cycle tomorrow. LUE PICC line. Patient did receive parenteral iron for iron deficient anemia. Labs will continue to be monitored while inpatient. attests: I preformed H&P, seen and examined patient, developed impression and plan of care. Discussed with dictator. Agree with dictation, documented as a scribe
[2022-07-01] MEDS: THIAMINE 100 MG TAB PO SCH (18:12)
--- NOTE | 2022-07-02 04:34 | P.PN ---
Subjective Progress Note Date: 07/01/22 76-year-old female who presents to the emergency department for abdominal pain and swelling and lower extremity swelling. She was at [facility] for these symptoms 4 days ago. She had imaging done as well as biopsies and was found to have ovarian mass, Liver mass, Ascites and pulmonary nodules consistent with metastatic malignant pricess, Paracentesis and liver biopsy revealed consistent with colon cancer adenocarcinoma. She did have fluid in her abdomen at that time and had a paracentesis. The fluid has since reaccumulated, and she is complaining of severe abdominal pain. She is having regular bowel movements. Additionally, she has developed swelling in her legs bilaterally. This is also continuing to progress, and she is having pain whenever they are touched or when she tries to walk. Also states that they feel very heavy. Daughter stated she has been worse since discharge and was brought to [place] ER last night for IVF and supportive care. She is not eating and concern of rapid growing cancer, she will be admitted with urgent pallaitive chemotherapy and therapeutic paracentesis Lab work reveals leukocytosis and several electrolyte abnormalities. CT of the abdomen and pelvis was obtained. 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 She also has a large amount of ascites throughout the abdomen and pelvis. Dr. Colon was consulted for Mediport placement and the interventional radiology and PICC team were also con consulted, as the patient will need therapeutic paracentesis and PICC line placement to begin chemo as soon as possible. 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 Colon following. Plan was for possible mediport placement although has received a PICC line and will hold of on mediport for now. Patient is status post paracentesis with ascites and reports her abdomen pain and distention has improved. Patient reports to tolerating diet. No reports of nausea or vomiting noted. Patient is afebrile and denies chest pain or shortness of breath. Patient is to start palliative chemo today. Recommend repeat am labs. 07/01/2022 Patient is seen this morning and continued on palliative chemotherapy with oncology following closely. Patient denies abdominal pain and reports to tolerating diet with no nausea or vomiting noted. Patient is afebrile and noted increase in WBC. Hemoglobin is stable. Sodium on the lower side and recommend to monitor closely. No chest pain or shortness of breath noted. Encouraged increased activity as tolerated. PT/OT evaluation. Review of systems: Constitutional: No reports of fatigue, fever, or chills Cardiovascular: No reports of chest pain or palpitations Respiratory: No reports of shortness of breath or cough GI: No reports of nausea, vomiting, or diarrhea, reports improvement in abdominal pain and distention : No reports of dysuria or retention Neurovascular: reports of generalized weakness All medications have been reviewed Active Medications Hydrocodone Bitart/Acetaminophen (Hydrocodone/Apap 5-325mg 1 Each Tab) 1 each PO Q4HR PRN PRN Reason: Moderate Pain Lactated Ringer's (Lactated Ringers) 1,000 mls @ 20 mls/hr IV .Q24H [facility] Last Admin: 07/01/22 05:57 Dose: Not Given Ferric Sodium Gluconate 125 mg (/ Sodium Chloride) 110 mls @ 100 mls/hr IVPB DAILY [facility] Last Admin: 07/01/22 08:39 Dose: 100 mls/hr Fluorouracil 3,950 mg/ Sodium (Chloride) 329 mls @ 7.152 mls/hr IV ONCE ONE Stop: 07/02/22 15:59 Last Admin: 06/30/22 18:16 Dose: 7.152 mls/hr Naloxone HCl (Naloxone 0.4 Mg/Ml 1 Ml Vial) 0.2 mg IV Q2M PRN PRN Reason: Opioid Reversal Ondansetron HCl (Ondansetron 4 Mg/2 Ml Vial) 4 mg IVP Q8HR PRN PRN Reason: Nausea And Vomiting Last Admin: 07/01/22 14:47 Dose: 4 mg Oxycodone/Acetaminophen (Oxycodone-Apap 5-325mg 1 Each Tab) 1 each PO Q4HR PRN PRN Reason: Severe Pain Last Admin: 07/01/22 15:55 Dose: 1 each Thiamine HCl (Thiamine 100 Mg Tab) 100 mg PO DAILY [facility] Last Admin: 07/01/22 18:12 Dose: 100 mg Physical exam: General appearance: alert, lying in bed, well developed, well nourished Head exam: Present: atraumatic, normocephalic, normal inspection Respiratory exam: diminished breath sounds bilaterally with no wheezing or rhonchi noted Cardiovascular Exam: S1, S2 muffled GI/Abdominal exam: soft, mildly distended, normal bowel sounds, no guarding or rigidity noted Extremities exam: pedal edema (3+), calf tenderness Neurological exam: alert, oriented X3, CN II-XII intact Psychiatric exam: normal affect, normal mood Skin exam: warm, dry, intact, normal color. Absent: rash Assessment: Metastatic colon cancer with metastasis to liver, lungs and peritoneum Malignant ascites; status post paracentesis of 1.5 liters removed on 06/28 Hyponatremia, likely hypovolemic leukocytosis, likely reactive Hypertension DVT prophylaxis GI prophylaxis full code Plan: Patient has received a PICC line and has started palliative chemotherapy ONcology following and to address code status with family as patient is full code at this time Patient is status post paracentesis for ascites and reports to feeling better an d hungry, able to eat Encouraged increased activity as tolerated. Recommend to closely monitor labs and vital signs. Labs ordered for am. Due to multiple complex medical issues, overall prognosis is extremely guarded. The impression and plan of care has been dictated by Gretel George, Nurse Practitioner as directed. Dr. Darryn MD I have performed a history and examination and MDM of this patient, discussed the same with the dictator, and agree with the dictator's assessment and plan as written ,documented as a scribe. Based on total visit time, I have performed more than 50% of the visit. Objective - Vital Signs Vital signs: Vital Signs Temp 97.5 F L 07/02/22 00:07 Pulse 78 07/02/22 00:07 Resp 15 07/02/22 00:07 BP 135/79 07/02/22 00:07 Pulse Ox 100 07/02/22 00:07 FiO2 Intake & Output 07/01/22 07/01/22 07/02/22 06:59 18:59 06:59 Intake Total 662 Balance 662 Intake: Intake, IV Titration 62 Amount fluorouraciL 3,950 mg In 62 Sodium Chloride 0.9% 250 ml @ 7.152 mls/hr IV ONCE ONE Rx#:[id number] Oral 600 Other: Voiding Method Bedside Commode Toilet Bedside Commode # Voids 2 1 # Bowel Movements 1 - Labs CBC & Chem 7: 07/01/22 05:13 07/01/22 05:13 Labs: Abnormal Lab Results - Last 24 Hours (Table) 06/28/22 07/01/22 07/01/22 Range/Units 07:52 05:13 05:13 WBC 12.18 H (4.50-10.00) X 10*3/uL RBC 3.88 L (4.10-5.20) X 10*6/uL Hgb 10.1 L (12.0-15.0) g/dL Hct 32.8 L (37.2-46.3) % MCH 26.0 L (27.0-32.0) pg MCHC 30.8 L (32.0-37.0) g/dL RDW 17.5 H (11.5-14.5) % Immature Gran # 0.05 H (0.00-0.04) X 10*3/uL Neutrophils # 10.96 H (1.80-7.70) X 10*3/uL Lymphocytes # 0.77 L (0.90-5.00) X 10*3/uL Eosinophils # 0 L (0.04-0.35) X 10*3/uL Sodium 131 L (135-145) mmol/L Anion Gap 8.80 L (10.00-18.00) mmol/L Calcium 8.1 L (8.7-10.3) mg/dL Albumin 2.5 L (3.8-4.9) g/dL Globulin 3.7 H (1.6-3.3) g/dL Albumin/Globulin Ratio 0.68 L (1.60-3.17) g/dL Vitamin B1 31 L (38-122) ug/L
[2022-07-02] MEDS: LACTATED RINGERS 1,000 ML IV SCH (05:42)
[2022-07-02 09:09] LABS: Basophils # (A) 0.04 X 10*3/uL (0.00-0.10); Basophils % (A) 0.4 %; Eosinophils # (A) 0.04 X 10*3/uL (0.04-0.35); Eosinophils % (A) 0.4 %; HCT 30.5 % (37.2-46.3); HGB 9.5 g/dL (12.0-15.0); Immature Grans, Automated 0.4 %; Lymphocytes # (A) 1.01 X 10*3/uL (0.90-5.00); Lymphocytes % (A) 9.1 %; MCH 26.2 pg (27.0-32.0); MCHC 31.1 g/dL (32.0-37.0); Mean Platelet Volume 9.7 fL (9.5-12.2); Monocytes # (A) 1.02 X 10*3/uL (0.20-1.00); Monocytes % (A) 9.2 %; NRBC Per 100 WBC 0.2 /100 WBCS (0.0-0.0); Neutrophils # (A) 8.95 X 10*3/uL (1.80-7.70); Neutrophils % (A) 80.5 %; Platelet Count 299 X 10*3/uL (140-440); RBC 3.63 X 10*6/uL (4.10-5.20); RDW 17.4 % (11.5-14.5)
[2022-07-02] MEDS: THIAMINE 100 MG TAB PO SCH (09:22)
[2022-07-02] MEDS: SODIUM FERRIC GLUCONAT-SUCROSE 125 MG in SODIUM CHLORIDE 0.9% 100 ML IVPB SCH (09:23)
[2022-07-02 09:40] LABS: Albumin 2.4 g/dL (3.8-4.9); Albumin/Globulin Ratio 0.71 (1.60-3.17); BUN/Creat Ratio 16.74 Ratio (12.00-20.00); Blood Urea Nitrogen 16.2 mg/dL (9.0-27.0); Calcium 8.1 mg/dL (8.7-10.3); Carbon Dioxide 25.9 mmol/L (20.0-27.5); Globulin 3.3 g/dL (1.6-3.3); Non-African American GFR(CKD) 56.1 (60.0-200.0); Potassium 4.6 mmol/L (3.5-5.5); Total Bilirubin 0.3 mg/dL (0.30-1.20); Total Protein 5.6 g/dL (6.2-8.2)
--- NOTE | 2022-07-02 15:06 | P.PN ---
Subjective Progress Note Date: 07/02/22 Principal diagnosis: metastatic colon adenocarcinoma, inpt chemo In follow-up today, patient has no new c/o, oral intake is fair to poor, no chemo side effects to report, no vomiting, diarrhea. Objective - Vital Signs Vital signs: Vital Signs Temp 98 F 07/02/22 12:00 Pulse 97 07/02/22 12:00 Resp 18 07/02/22 12:00 BP 131/83 07/02/22 12:00 Pulse Ox 98 07/02/22 12:00 FiO2 Intake & Output 07/01/22 07/02/22 07/02/22 18:59 06:59 18:59 Intake Total 720 Balance 720 Intake: Intake, IV Titration 240 Amount Lactated Ringers 1,000 ml 240 @ 20 mls/hr IV .Q24H [facility] Rx#:[id number] Oral 480 Other: Voiding Method Toilet Toilet Bedside Commode Bedside Commode # Voids 1 3 # Bowel Movements 1 - Constitutional General appearance: Present: cooperative, no acute distress, thin - EENT Eyes: Present: anicteric sclerae, EOMI ENT: Present: hearing grossly normal, normal oropharynx - Respiratory Respiratory: bilateral: CTA - Cardiovascular Rhythm: regular Heart sounds: normal: S1, S2 Abnormal Heart Sounds: Absent: systolic murmur, diastolic murmur, rub, S3 Gallop, S4 Gallop, click, other - Peripheral edema leg Peripheral Edema: bilateral: None - Gastrointestinal Gastrointestinal Comment(s): Abd wall nodules persist, distention and firmness of abd may be slightly impr stacy General gastrointestinal: Present: distended - Neurologic Neurologic: Present: CNII-XII intact - Musculoskeletal Musculoskeletal: Present: generalized weakness - Psychiatric Psychiatric: Present: A&O x's 3, appropriate affect, intact judgment & insight - Labs CBC & Chem 7: 07/02/22 06:12 07/02/22 06:12 Labs: Abnormal Lab Results - Last 24 Hours (Table) 07/02/22 07/02/22 Range/Units 06:12 06:12 WBC 11.10 H (4.50-10.00) X 10*3/uL RBC 3.63 L (4.10-5.20) X 10*6/uL Hgb 9.5 L (12.0-15.0) g/dL Hct 30.5 L (37.2-46.3) % MCH 26.2 L (27.0-32.0) pg MCHC 31.1 L (32.0-37.0) g/dL RDW 17.4 H (11.5-14.5) % Absolute Nucleated RBC 0.02 H (0.00-0.00) X 10*3/uL Neutrophils # 8.95 H (1.80-7.70) X 10*3/uL Monocytes # 1.02 H (0.20-1.00) X 10*3/uL NRBC/100 WBC Diff 0.2 H (0.0-0.0) /100 WBCS Sodium 129 L (135-145) mmol/L Anion Gap 6.00 L (10.00-18.00) mmol/L Est GFR (CKD-EPI)NonAf 56.1 L (60.0-200.0) Calcium 8.1 L (8.7-10.3) mg/dL AST 37 H (13-35) U/L Total Protein 5.6 L (6.2-8.2) g/dL Albumin 2.4 L (3.8-4.9) g/dL Albumin/Globulin Ratio 0.71 L (1.60-3.17) g/dL Assessment and Plan (1) Abdominal ascites Current Visit: Yes Status: Acute Priority: High Code(s): R18.8 - OTHER ASCITES SNOMED Code(s): 162652114 (2) Metastatic colon cancer to liver Current Visit: Yes Status: Acute Priority: High Code(s): C18.9 - MALIGNANT NEOPLASM OF COLON, UNSPECIFIED; C78.7 - SECONDARY MALIG NEOPLASM OF LIVER AND INTRAHEPATIC BILE DUCT SNOMED Code(s): 080879082 Plan: Patient is status post 1.5 L of fluid removed from the abdomen on the 2nd. She cont to have relief of distention and discomfort in the abdomen post para. FOLFOX without 5-FU bolus completed today. No significant SE reported. LUE PICC line. Patient did receive parenteral iron for iron deficient anemia. She is now s/p chemo. Labs will continue to be monitored while inpatient. Plan at this time is stabilize pt and get her discharged. Not sure if standing order for paracentesis needs to be in place. Will make sure pain is managed and meds are available. attests: I preformed H&P, seen and examined patient, developed impression and plan of care. Discussed with dictator. Agree with dictation, documented as a scribe
--- NOTE | 2022-07-02 17:20 | P.PN ---
Subjective Progress Note Date: 07/02/22 76-year-old female who presents to the emergency department for abdominal pain and swelling and lower extremity swelling. She was at [facility] for these symptoms 4 days ago. She had imaging done as well as biopsies and was found to have ovarian mass, Liver mass, Ascites and pulmonary nodules consistent with metastatic malignant pricess, Paracentesis and liver biopsy revealed consistent with colon cancer adenocarcinoma. She did have fluid in her abdomen at that time and had a paracentesis. The fluid has since reaccumulated, and she is complaining of severe abdominal pain. She is having regular bowel movements. Additionally, she has developed swelling in her legs bilaterally. This is also continuing to progress, and she is having pain whenever they are touched or when she tries to walk. Also states that they feel very heavy. Daughter stated she has been worse since discharge and was brought to [place] ER last night for IVF and supportive care. She is not eating and concern of rapid growing cancer, she will be admitted with urgent pallaitive chemotherapy and therapeutic paracentesis Lab work reveals leukocytosis and several electrolyte abnormalities. CT of the abdomen and pelvis was obtained. 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 She also has a large amount of ascites throughout the abdomen and pelvis. Dr. Colon was consulted for Mediport placement and the interventional radiology and PICC team were also con consulted, as the patient will need therapeutic paracentesis and PICC line placement to begin chemo as soon as possible. 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 Colon following. Plan was for possible mediport placement although has received a PICC line and will hold of on mediport for now. Patient is status post paracentesis with ascites and reports her abdomen pain and distention has improved. Patient reports to tolerating diet. No reports of nausea or vomiting noted. Patient is afebrile and denies chest pain or shortness of breath. Patient is to start palliative chemo today. Recommend repeat am labs. 07/01/2022 Patient is seen this morning and continued on palliative chemotherapy with oncology following closely. Patient denies abdominal pain and reports to tolerating diet with no nausea or vomiting noted. Patient is afebrile and noted increase in WBC. Hemoglobin is stable. Sodium on the lower side and recommend to monitor closely. No chest pain or shortness of breath noted. Encouraged increased activity as tolerated. PT/OT evaluation. 07/02/2022 Patient is seen and evaluated this morning currently receiving last dose of the palliative chemotherapy and have discussed with oncology about closely monitoring. Will consult physical therapy and also dietitian as patient's oral intake continues to be poor. Plan is for possible home with home care when stabilized and discharged. WBC is trending down at 11.10 with hemoglobin of 9.5, sodium is 129 with a creatinine of 1.0. Patient is afebrile and vital signs are stable and denies any shortness of breath or chest pains. Patient is 99% on room air. Patient is lethargic today although arousable. Review of systems: Constitutional: No reports of fatigue, fever, or chills Cardiovascular: No reports of chest pain or palpitations Respiratory: No reports of shortness of breath or cough GI: No reports of nausea, vomiting, or diarrhea, reports improvement in abdomi nal pain and distention : No reports of dysuria or retention Neurovascular: reports of generalized weakness All medications have been reviewed Active Medications Hydrocodone Bitart/Acetaminophen (Hydrocodone/Apap 5-325mg 1 Each Tab) 1 each PO Q4HR PRN PRN Reason: Moderate Pain Lactated Ringer's (Lactated Ringers) 1,000 mls @ 20 mls/hr IV .Q24H [facility] Last Admin: 07/02/22 05:42 Dose: 20 mls/hr Ferric Sodium Gluconate 125 mg (/ Sodium Chloride) 110 mls @ 100 mls/hr IVPB DAILY [facility] Last Admin: 07/02/22 09:23 Dose: 100 mls/hr Naloxone HCl (Naloxone 0.4 Mg/Ml 1 Ml Vial) 0.2 mg IV Q2M PRN PRN Reason: Opioid Reversal Ondansetron HCl (Ondansetron 4 Mg/2 Ml Vial) 4 mg IVP Q8HR PRN PRN Reason: Nausea And Vomiting Last Admin: 07/01/22 14:47 Dose: 4 mg Oxycodone/Acetaminophen (Oxycodone-Apap 5-325mg 1 Each Tab) 1 each PO Q4HR PRN PRN Reason: Severe Pain Last Admin: 07/01/22 15:55 Dose: 1 each Thiamine HCl (Thiamine 100 Mg Tab) 100 mg PO DAILY [facility] Last Admin: 07/02/22 09:22 Dose: 100 mg Physical exam: General appearance: Sleeping although arousable alert, lying in bed, well developed, well nourished Head exam: Present: atraumatic, normocephalic, normal inspection Respiratory exam: diminished breath sounds bilaterally with no wheezing or rhonchi noted Cardiovascular Exam: S1, S2 muffled GI/Abdominal exam: soft, mildly distended, normal bowel sounds, no guarding or rigidity noted Extremities exam: pedal edema (3+), calf tenderness Neurological exam: alert, oriented X3, CN II-XII intact, diffusely weak Psychiatric exam: normal affect, normal mood Skin exam: warm, dry, intact, normal color. Absent: rash Assessment: Metastatic colon cancer with metastasis to liver, lungs and peritoneum Malignant ascites; status post paracentesis of 1.5 liters removed on 06/28 Hyponatremia, likely hypovolemic leukocytosis, likely reactive Hypertension DVT prophylaxis GI prophylaxis full code Plan: Patient has received a PICC line and has started palliative chemotherapy of FOLFOX and will be completing this today with no significant side effects noted ONcology following and to address code status with family as patient is full code at this time Patient is status post paracentesis for ascites and reports to feeling better and hungry, able to eat Encouraged increased activity as tolerated. Recommend to closely monitor labs and vital signs. Labs ordered for am. Will have physical therapy evaluate the patient as plan moving forward per family is going home with home care and will await PT notes Due to multiple complex medical issues, overall prognosis is extremely guarded. The impression and plan of care has been dictated by Gretel George, Nurse Practitioner as directed. Dr. Darryn MD I have performed a history and examination and MDM of this patient, discussed the same with the dictator, and agree with the dictator's assessment and plan as written ,documented as a scribe. Based on total visit time, I have performed more than 50% of the visit. Objective - Vital Signs Vital signs: Vital Signs Temp 97.6 F 07/02/22 08:00 Pulse 81 07/02/22 08:00 Resp 16 07/02/22 08:00 BP 138/78 07/02/22 08:00 Pulse Ox 100 07/02/22 08:00 FiO2 Intake & Output 07/01/22 07/02/22 07/02/22 18:59 06:59 18:59 Intake Total 720 Balance 720 Intake: Intake, IV Titration 240 Amount Lactated Ringers 1,000 ml 240 @ 20 mls/hr IV .Q24H [facility] Rx#:[id number] Oral 480 Other: Voiding Method Toilet Toilet Bedside Commode Bedside Commode # Voids 1 # Bowel Movements 1 - Labs CBC & Chem 7: 07/02/22 06:12 07/02/22 06:12 Labs: Abnormal Lab Results - Last 24 Hours (Table) 07/01/22 07/01/22 07/02/22 Range/Units 05:13 05:13 06:12 WBC 12.18 H 11.10 H (4.50-10.00) X 10*3/uL RBC 3.88 L 3.63 L (4.10-5.20) X 10*6/uL Hgb 10.1 L 9.5 L (12.0-15.0) g/dL Hct 32.8 L 30.5 L (37.2-46.3) % MCH 26.0 L 26.2 L (27.0-32.0) pg MCHC 30.8 L 31.1 L (32.0-37.0) g/dL RDW 17.5 H 17.4 H (11.5-14.5) % Absolute Nucleated RBC 0.02 H (0.00-0.00) X 10*3/uL Immature Gran # 0.05 H (0.00-0.04) X 10*3/uL Neutrophils # 10.96 H 8.95 H (1.80-7.70) X 10*3/uL Lymphocytes # 0.77 L (0.90-5.00) X 10*3/uL Monocytes # 1.02 H (0.20-1.00) X 10*3/uL Eosinophils # 0 L (0.04-0.35) X 10*3/uL NRBC/100 WBC Diff 0.2 H (0.0-0.0) /100 WBCS Sodium 131 L (135-145) mmol/L Anion Gap 8.80 L (10.00-18.00) mmol/L Est GFR (CKD-EPI)NonAf (60.0-200.0) Calcium 8.1 L (8.7-10.3) mg/dL AST (13-35) U/L Total Protein (6.2-8.2) g/dL Albumin 2.5 L (3.8-4.9) g/dL Globulin 3.7 H (1.6-3.3) g/dL Albumin/Globulin Ratio 0.68 L (1.60-3.17) g/dL 07/02/22 Range/Units 06:12 WBC (4.50-10.00) X 10*3/uL RBC (4.10-5.20) X 10*6/uL Hgb (12.0-15.0) g/dL Hct (37.2-46.3) % MCH (27.0-32.0) pg MCHC (32.0-37.0) g/dL RDW (11.5-14.5) % Absolute Nucleated RBC (0.00-0.00) X 10*3/uL Immature Gran # (0.00-0.04) X 10*3/uL Neutrophils # (1.80-7.70) X 10*3/uL Lymphocytes # (0.90-5.00) X 10*3/uL Monocytes # (0.20-1.00) X 10*3/uL Eosinophils # (0.04-0.35) X 10*3/uL NRBC/100 WBC Diff (0.0-0.0) /100 WBCS Sodium 129 L (135-145) mmol/L Anion Gap 6.00 L (10.00-18.00) mmol/L Est GFR (CKD-EPI)NonAf 56.1 L (60.0-200.0) Calcium 8.1 L (8.7-10.3) mg/dL AST 37 H (13-35) U/L Total Protein 5.6 L (6.2-8.2) g/dL Albumin 2.4 L (3.8-4.9) g/dL Globulin (1.6-3.3) g/dL Albumin/Globulin Ratio 0.71 L (1.60-3.17) g/dL
[2022-07-03] MEDS: LACTATED RINGERS 1,000 ML IV SCH (05:42)
[2022-07-03 08:06] LABS: African American GFR (CKD) 81 (>60 ml/min/1.73 sqM); Anion Gap 8 mmol/L; Blood Urea Nitrogen 15 mg/dL (7-17); Calcium 7.6 mg/dL (8.4-10.2); Carbon Dioxide 23 mmol/L (22-30); Chloride 101 mmol/L (98-107); Glucose 69 mg/dL (74-99); Magnesium 1.8 mg/dL (1.6-2.3); Non-African American GFR(CKD) 70 (>60 ml/min/1.73 sqM); Potassium 4.4 mmol/L (3.5-5.1); Sodium 132 mmol/L (137-145)
[2022-07-03] MEDS: SODIUM FERRIC GLUCONAT-SUCROSE 125 MG in SODIUM CHLORIDE 0.9% 100 ML IVPB SCH (10:24)
[2022-07-03] MEDS: THIAMINE 100 MG TAB PO SCH (10:24)
[2022-07-03 10:40] LABS: Basophils # (A) 0.01 X 10*3/uL (0.00-0.10); Basophils % (A) 0.1 %; Eosinophils # (A) 0 X 10*3/uL (0.04-0.35); Eosinophils % (A) 0 %; HCT 32.2 % (37.2-46.3); HGB 10.1 g/dL (12.0-15.0); Immature Grans, Automated 0.4 %; Lymphocytes # (A) 0.84 X 10*3/uL (0.90-5.00); Lymphocytes % (A) 7.6 %; MCH 26.9 pg (27.0-32.0); MCHC 31.4 g/dL (32.0-37.0); MCV 85.9 fL (80.0-97.0); Mean Platelet Volume 10.3 fL (9.5-12.2); Monocytes # (A) 0.49 X 10*3/uL (0.20-1.00); Monocytes % (A) 4.4 %; NRBC Per 100 WBC 0 /100 WBCS (0.0-0.0); Neutrophils # (A) 9.67 X 10*3/uL (1.80-7.70); Neutrophils % (A) 87.5 %; Platelet Count 312 X 10*3/uL (140-440); RBC 3.75 X 10*6/uL (4.10-5.20); RDW 17.6 % (11.5-14.5); WBC 11.05 X 10*3/uL (4.50-10.00)
[2022-07-03 17:18] VITALS: BMI 24.4
--- NOTE | 2022-07-03 17:50 | P.PN ---
Subjective Progress Note Date: 07/03/22 Principal diagnosis: metastatic colon adenocarcinoma, inpt chemo In follow-up today, patient has no new c/o, she is pretty tired today, medicine or active as she usually is. Oral intake is fair to poor, no chemo side effects to report, no vomiting, diarrhea. Objective - Vital Signs Vital signs: Vital Signs Temp 97.5 F L 07/03/22 11:55 Pulse 93 07/03/22 11:55 Resp 15 07/03/22 11:55 BP 145/82 07/03/22 11:55 Pulse Ox 99 07/03/22 11:55 FiO2 Intake & Output 07/02/22 07/03/22 07/03/22 18:59 06:59 18:59 Other: Voiding Method Toilet Toilet Toilet Bedside Commode Bedside Commode Bedside Commode # Voids 1 3 - Constitutional General appearance: Present: cooperative, no acute distress, thin - EENT Eyes: Present: anicteric sclerae, EOMI ENT: Present: hearing grossly normal, normal oropharynx - Respiratory Respiratory: bilateral: CTA - Cardiovascular Rhythm: regular Heart sounds: normal: S1, S2 Abnormal Heart Sounds: Absent: systolic murmur, diastolic murmur, rub, S3 Gallop, S4 Gallop, click, other - Peripheral edema leg Peripheral Edema: bilateral: Trace - Gastrointestinal Gastrointestinal Comment(s): Dullness to percussion on the flanks, tympany on the top of the abdomen. General gastrointestinal: Present: distended, soft - Neurologic Neurologic: Present: CNII-XII intact (Grossly) - Musculoskeletal Musculoskeletal: Present: generalized weakness, strength equal bilaterally - Psychiatric Psychiatric Comment(s): Remote memory much more intact than short-term. Psychiatric: Present: A&O x's 3, appropriate affect, intact judgment & insight - Labs CBC & Chem 7: 07/03/22 07:21 07/03/22 07:21 Labs: Abnormal Lab Results - Last 24 Hours (Table) 07/03/22 07/03/22 Range/Units 07:21 07:21 WBC 11.05 H (4.50-10.00) X 10*3/uL RBC 3.75 L (4.10-5.20) X 10*6/uL Hgb 10.1 L (12.0-15.0) g/dL Hct 32.2 L (37.2-46.3) % MCH 26.9 L (27.0-32.0) pg MCHC 31.4 L (32.0-37.0) g/dL RDW 17.6 H (11.5-14.5) % Neutrophils # 9.67 H (1.80-7.70) X 10*3/uL Lymphocytes # 0.84 L (0.90-5.00) X 10*3/uL Eosinophils # 0 L (0.04-0.35) X 10*3/uL Sodium 132 L (137-145) mmol/L Glucose 69 L (74-99) mg/dL Calcium 7.6 L (8.4-10.2) mg/dL Assessment and Plan (1) Abdominal ascites Current Visit: Yes Status: Acute Priority: High Code(s): R18.8 - OTHER ASCITES SNOMED Code(s): 855579475 (2) Metastatic colon cancer to liver Current Visit: Yes Status: Acute Priority: High Code(s): C18.9 - MALIGNANT NEOPLASM OF COLON, UNSPECIFIED; C78.7 - SECONDARY MALIG NEOPLASM OF LIVER AND INTRAHEPATIC BILE DUCT SNOMED Code(s): 936764087 Plan: Patient's abdomen is progressively becoming more distended. Ultrasound evaluation for possible paracentesis ordered FOLFOX without 5-FU bolus completed yesterday. No significant SE reported. CBC is stable. LUE PICC line. Parenteral iron for iron deficient anemia given. Plan at this time is stabilize pt and get her discharged. Not sure if standing order for paracentesis needs to be in place. Will make sure pain is managed and meds are available. attests: I preformed H&P, seen and examined patient, developed impression and plan of care. Discussed with dictator. Agree with dictation, documented as a scribe
--- NOTE | 2022-07-03 18:49 | US ---
EXAMINATION TYPE: US abdomen limited DATE OF EXAM: 07/03/2022 COMPARISON: Ultrasound 06/28/2022 CLINICAL HISTORY: assess for fluid pocket. Known ascites, patient has no pain today FINDINGS: Mild amount of free fluid, more on the right then left. IMPRESSION: Relatively mild ascites, right greater than left.
--- NOTE | 2022-07-04 00:09 | P.PN ---
Subjective Progress Note Date: 07/03/22 76-year-old female who presents to the emergency department for abdominal pain and swelling and lower extremity swelling. She was at [facility] for these symptoms 4 days ago. She had imaging done as well as biopsies and was found to have ovarian mass, Liver mass, Ascites and pulmonary nodules consistent with metastatic malignant pricess, Paracentesis and liver biopsy revealed consistent with colon cancer adenocarcinoma. She did have fluid in her abdomen at that time and had a paracentesis. The fluid has since reaccumulated, and she is complaining of severe abdominal pain. She is having regular bowel movements. Additionally, she has developed swelling in her legs bilaterally. This is also continuing to progress, and she is having pain whenever they are touched or when she tries to walk. Also states that they feel very heavy. Daughter stated she has been worse since discharge and was brought to [place] ER last night for IVF and supportive care. She is not eating and concern of rapid growing cancer, she will be admitted with urgent pallaitive chemotherapy and therapeutic paracentesis Lab work reveals leukocytosis and several electrolyte abnormalities. CT of the abdomen and pelvis was obtained. 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 She also has a large amount of ascites throughout the abdomen and pelvis. Dr. Colon was consulted for Mediport placement and the interventional radiology and PICC team were also con consulted, as the patient will need therapeutic paracentesis and PICC line placement to begin chemo as soon as possible. 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 Colon following. Plan was for possible mediport placement although has received a PICC line and will hold of on mediport for now. Patient is status post paracentesis with ascites and reports her abdomen pain and distention has improved. Patient reports to tolerating diet. No reports of nausea or vomiting noted. Patient is afebrile and denies chest pain or shortness of breath. Patient is to start palliative chemo today. Recommend repeat am labs. 07/01/2022 Patient is seen this morning and continued on palliative chemotherapy with oncology following closely. Patient denies abdominal pain and reports to tolerating diet with no nausea or vomiting noted. Patient is afebrile and noted increase in WBC. Hemoglobin is stable. Sodium on the lower side and recommend to monitor closely. No chest pain or shortness of breath noted. Encouraged increased activity as tolerated. PT/OT evaluation. 07/02/2022 Patient is seen and evaluated this morning currently receiving last dose of the palliative chemotherapy and have discussed with oncology about closely monitoring. Will consult physical therapy and also dietitian as patient's oral intake continues to be poor. Plan is for possible home with home care when stabilized and discharged. WBC is trending down at 11.10 with hemoglobin of 9.5, sodium is 129 with a creatinine of 1.0. Patient is afebrile and vital signs are stable and denies any shortness of breath or chest pains. Patient is 99% on room air. Patient is lethargic today although arousable. 07/03/2022 Patient is seen this morning and lethargic but arousable. Patient has completed chemotherapy with no side effects noted. Oncology following closely and has ordered abdominal ultrasound as abdomen continues to be distended. Patient is denying abdominal pain and no reports of nausea or vomiting noted. Patient is afebrile and denies chest pain or shortness of breath. Oral intake is poor and encouraged oral intake and pleasure foods from home. Social work following and plan is for patient to return home with family and home care. Patient is weak and recommend PT/OT evaluation. Review of systems: Constitutional: No reports of fatigue, fever, or chills Cardiovascular: No reports of chest pain or palpitations Respiratory: No reports of shortness of breath or cough GI: No reports of nausea, vomiting, or diarrhea, reports improvement in abdominal pain and distention : No reports of dysuria or retention Neurovascular: reports of generalized weakness All medications have been reviewed Active Medications Hydrocodone Bitart/Acetaminophen (Hydrocodone/Apap 5-325mg 1 Each Tab) 1 each PO Q4HR PRN PRN Reason: Moderate Pain Lactated Ringer's (Lactated Ringers) 1,000 mls @ 20 mls/hr IV .Q24H ANDREA Last Admin: 07/03/22 05:42 Dose: Not Given Ferric Sodium Gluconate 125 mg (/ Sodium Chloride) 110 mls @ 100 mls/hr IVPB DAILY [facility] Last Admin: 07/03/22 10:24 Dose: 100 mls/hr Naloxone HCl (Naloxone 0.4 Mg/Ml 1 Ml Vial) 0.2 mg IV Q2M PRN PRN Reason: Opioid Reversal Ondansetron HCl (Ondansetron 4 Mg/2 Ml Vial) 4 mg IVP Q8HR PRN PRN Reason: Nausea And Vomiting Last Admin: 07/01/22 14:47 Dose: 4 mg Oxycodone/Acetaminophen (Oxycodone-Apap 5-325mg 1 Each Tab) 1 each PO Q4HR PRN PRN Reason: Severe Pain Last Admin: 07/01/22 15:55 Dose: 1 each Thiamine HCl (Thiamine 100 Mg Tab) 100 mg PO DAILY [facility] Last Admin: 07/03/22 10:24 Dose: 100 mg Physical exam: General appearance: Sleeping although arousable alert, lying in bed, well developed, well nourished Head exam: Present: atraumatic, normocephalic, normal inspection Respiratory exam: diminished breath sounds bilaterally with no wheezing or rh onchi noted Cardiovascular Exam: S1, S2 muffled GI/Abdominal exam: soft, distended, normal bowel sounds, no guarding or rigidity noted Extremities exam: pedal edema (3+), calf tenderness Neurological exam: alert, oriented X3, CN II-XII intact, diffusely weak Psychiatric exam: normal affect, normal mood Skin exam: warm, dry, intact, no rash or lesions noted Assessment: Metastatic colon cancer with metastasis to liver, lungs and peritoneum Malignant ascites; status post paracentesis of 1.5 liters removed on 06/28 Hyponatremia, likely hypovolemic, improving leukocytosis, possibly reactive Hypertension DVT prophylaxis GI prophylaxis full code Plan: Patient has received a PICC line and has completed palliative chemotherapy of FOLFOX with no significant side effects noted ONcology following and to address code status with family as patient is full code at this time Patient abdomen is distended and ultrasound ordered and IR consulted for possible paracentesis Encouraged increased activity as tolerated. Recommend to closely monitor labs and vital signs. Labs ordered for am. Will have physical therapy evaluate the patient as plan moving forward per family is going home with home care and will await PT notes Due to multiple complex medical issues, overall prognosis is extremely guarded. The impression and plan of care has been dictated by Gretel George, Nurse Practitioner as directed. Dr. Darryn MD I have performed a history and examination and MDM of this patient, discussed the same with the dictator, and agree with the dictator's assessment and plan as written ,documented as a scribe. Based on total visit time, I have performed more than 50% of the visit. Objective - Vital Signs Vital signs: Vital Signs Temp 98.2 F 07/03/22 05:42 Pulse 88 07/03/22 05:42 Resp 18 07/03/22 05:42 BP 139/78 07/03/22 05:42 Pulse Ox 99 07/03/22 05:42 FiO2 Intake & Output 07/02/22 07/03/22 07/03/22 18:59 06:59 18:59 Other: Voiding Method Toilet Toilet Bedside Commode Bedside Commode # Voids 1 3 - Labs CBC & Chem 7: 07/03/22 07:21 07/03/22 07:21 Labs: Abnormal Lab Results - Last 24 Hours (Table) 07/03/22 Range/Units 07:21 Sodium 132 L (137-145) mmol/L Glucose 69 L (74-99) mg/dL Calcium 7.6 L (8.4-10.2) mg/dL
[2022-07-04 06:50] LABS: Anisocytosis Slight; Basophils % (A) 0 %; Eosinophils # (A) 0.1 k/uL (0-0.7); Eosinophils % (A) 1 %; HCT 32.5 % (34.0-46.0); Hypochromasia Slight; Lymphocytes # (A) 0.8 k/uL (1.0-4.8); Lymphocytes % (A) 8 %; MCH 26.9 pg (25.0-35.0); MCHC 30.9 g/dL (31.0-37.0); MCV 87.2 fL (80.0-100.0); Mean Platelet Volume 7.6; Monocytes # (A) 0.3 k/uL (0-1.0); Monocytes % (A) 3 %; Neutrophils # (A) 8.5 k/uL (1.3-7.7); Neutrophils % (A) 88 %; Platelet Count 349 k/uL (150-450); RBC 3.72 m/uL (3.80-5.40); RDW 16.5 % (11.5-15.5); WBC 9.6 k/uL (3.8-10.6)
[2022-07-04 07:10] LABS: ALT 14 U/L (4-34); AST 51 U/L (14-36); African American GFR (CKD) 79 (>60 ml/min/1.73 sqM); Albumin 2.4 g/dL (3.5-5.0); Albumin/Globulin Ratio 0.7; Alkaline Phosphatase 105 U/L (38-126); Anion Gap 8 mmol/L; Blood Urea Nitrogen 15 mg/dL (7-17); Calcium 7.6 mg/dL (8.4-10.2); Carbon Dioxide 26 mmol/L (22-30); Chloride 100 mmol/L (98-107); Globulin 3.3 g/dL; Glucose 86 mg/dL (74-99); Non-African American GFR(CKD) 69 (>60 ml/min/1.73 sqM); Potassium 4.2 mmol/L (3.5-5.1); Sodium 134 mmol/L (137-145); Total Bilirubin 0.4 mg/dL (0.2-1.3); Total Protein 5.7 g/dL (6.3-8.2)
[2022-07-04] MEDS: THIAMINE 100 MG TAB PO SCH (09:05)
[2022-07-04] MEDS: SODIUM FERRIC GLUCONAT-SUCROSE 125 MG in SODIUM CHLORIDE 0.9% 100 ML IVPB SCH ×2 (09:05→17:15)
--- NOTE | 2022-07-04 12:25 | CDI ---
Documentation Clarification Form Date: 07/04/2022 11:44:53 AM From: Annita Whitt RN, CCDS Admit Date: 06/27/2022 03:56:00 PM Patient Name: Codi Francisco Visit Number: [id number] Discharge Date: ATTENTION: The Clinical Documentation Specialists (CDI) and [facility] Coding Staff appreciate your assistance in clarifying documentation. Please respond to the clarification below the line at the bottom and electronically sign. The CDI & [facility] Coding staff will review the response and follow-up if needed. Please note: Queries are made part of the Legal Health Record. If you have any questions, please contact the author of this message via ITS. Dr. Daily Cates The Registered Dietitian assessment on 07/03/22 indicates this patient meets criteria for severe chronic malnutrition dx. Based on this information and the findings below, is there an additional diagnosis that is clinically appropriate for this patient? History/Risk Factors: Metastatic colon cancer with Liver mets. HTN Clinical Indicators: 76-year-old female admitted for abdominal ascites. She has metastatic colon cancer with mets to liver with malignant ascites. Her appetite is listed as poor with significant weight loss of 31.3 % x18 months per dietary assessment. 07/02 Labs: Total Protein 5.6, Albumin 2.4 07/03 Labs HGB 10.[address] Consult Assessment: Malnutrition, severe chronic malnutrition Current BMI: 24.4 Insufficient energy intake: Weight Loss: 31.3% X18 months Loss of subcutaneous fat: Yes, Emaciated Loss of muscle mass: Yes Fluid accumulation: Abdominal ascites Treatment: Dietary Consult: Yes Monitor PO intake, General/healthful diet, Ensure Enlive TID Is there an additional diagnosis that is clinically appropriate for this patient? [ ] Mild Protein-Calorie Malnutrition [ ] Moderate Protein-Calorie Malnutrition [ ] Severe Protein-Calorie Malnutrition [ ] Other condition, please specify [ ] Unable to Determine (Template Last Revised: January 2021) NONE TREE
[2022-07-04] MEDS: LACTATED RINGERS 1,000 ML IV SCH (13:59)
--- NOTE | 2022-07-04 16:39 | P.PN ---
Subjective Progress Note Date: 07/04/22 76-year-old female who presents to the emergency department for abdominal pain and swelling and lower extremity swelling. She was at [facility] for these symptoms 4 days ago. She had imaging done as well as biopsies and was found to have ovarian mass, Liver mass, Ascites and pulmonary nodules consistent with metastatic malignant pricess, Paracentesis and liver biopsy revealed consistent with colon cancer adenocarcinoma. She did have fluid in her abdomen at that time and had a paracentesis. The fluid has since reaccumulated, and she is complaining of severe abdominal pain. She is having regular bowel movements. Additionally, she has developed swelling in her legs bilaterally. This is also continuing to progress, and she is having pain whenever they are touched or when she tries to walk. Also states that they feel very heavy. Daughter stated she has been worse since discharge and was brought to [place] ER last night for IVF and supportive care. She is not eating and concern of rapid growing cancer, she will be admitted with urgent pallaitive chemotherapy and therapeutic paracentesis Lab work reveals leukocytosis and several electrolyte abnormalities. CT of the abdomen and pelvis was obtained. 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 She also has a large amount of ascites throughout the abdomen and pelvis. Dr. Colon was consulted for Mediport placement and the interventional radiology and PICC team were also con consulted, as the patient will need therapeutic paracentesis and PICC line placement to begin chemo as soon as possible. 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 Colon following. Plan was for possible mediport placement although has received a PICC line and will hold of on mediport for now. Patient is status post paracentesis with ascites and reports her abdomen pain and distention has improved. Patient reports to tolerating diet. No reports of nausea or vomiting noted. Patient is afebrile and denies chest pain or shortness of breath. Patient is to start palliative chemo today. Recommend repeat am labs. 07/01/2022 Patient is seen this morning and continued on palliative chemotherapy with oncology following closely. Patient denies abdominal pain and reports to tolerating diet with no nausea or vomiting noted. Patient is afebrile and noted increase in WBC. Hemoglobin is stable. Sodium on the lower side and recommend to monitor closely. No chest pain or shortness of breath noted. Encouraged increased activity as tolerated. PT/OT evaluation. 07/02/2022 Patient is seen and evaluated this morning currently receiving last dose of the palliative chemotherapy and have discussed with oncology about closely monitoring. Will consult physical therapy and also dietitian as patient's oral intake continues to be poor. Plan is for possible home with home care when stabilized and discharged. WBC is trending down at 11.10 with hemoglobin of 9.5, sodium is 129 with a creatinine of 1.0. Patient is afebrile and vital signs are stable and denies any shortness of breath or chest pains. Patient is 99% on room air. Patient is lethargic today although arousable. 07/03/2022 Patient is seen this morning and lethargic but arousable. Patient has completed chemotherapy with no side effects noted. Oncology following closely and has ordered abdominal ultrasound as abdomen continues to be distended. Patient is denying abdominal pain and no reports of nausea or vomiting noted. Patient is afebrile and denies chest pain or shortness of breath. Oral intake is poor and encouraged oral intake and pleasure foods from home. Social work following and plan is for patient to return home with family and home care. Patient is weak and recommend PT/OT evaluation. 07/04/2022 Patient is seen and evaluated this morning with family members at the bedside. Patient continues to be alert although lethargic at times. Interventional radiology reviewing abdominal ultrasound for possible paracentesis of which patient and family are agreeable. Patient apparently removed her PICC line and has no IV access and ordered Accucath. Oncology following and recommending close monitoring of oral intake and overall clinical condition with possible discharge home with home care and family on Thursday if patient tolerates paracentesis and is doing well. Encouraged oral intake and recommend repeat labs. She is currently afebrile and denies chest pain or shortness of breath. Patient has received IV iron and recommend repeat labs. Patient's blood pressure is mildly elevated and recommend to closely monitor. Review of systems: Constitutional: No reports of fatigue, fever, or chills Cardiovascular: No reports of chest pain or palpitations Respiratory: No reports of shortness of breath or cough GI: No reports of nausea, vomiting, or diarrhea, reports abdominal distention : No reports of dysuria or retention Neurovascular: reports of generalized weakness All medications have been reviewed Physical exam: General appearance: Sleeping although arousable alert, lying in bed, well developed, well nourished Head exam: Present: atraumatic, normocephalic, normal inspection Respiratory exam: diminished breath sounds bilaterally with no wheezing or rhonchi noted Cardiovascular Exam: S1, S2 muffled GI/Abdominal exam: soft, distended, normal bowel sounds, no guarding or rigidity noted Extremities exam: pedal edema (3+), calf tenderness Neurological exam: alert, oriented X3, CN II-XII intact, diffusely weak Psychiatric exam: normal affect, normal mood Skin exam: warm, dry, intact, no rash or lesions noted Assessment: Metastatic colon cancer with metastasis to liver, lungs and peritoneum Malignant ascites; status post paracentesis of 1.5 liters removed on 06/28 Hyponatremia, likely hypovolemic, improving leukocytosis, possibly reactive, improving Hypertension DVT prophylaxis GI prophylaxis full code Plan: Patient apparently removed her PICC line and has no IV access and will order Accu cath placement. Interventional radiology following with plans for possible paracentesis today of abdominal ascites Oncology following and has completed palliative chemotherapy of FOLFOX with no significant side effects noted, recommend close monitoring over the weekend with possible discharge on Thursday if patient is doing well and oral intake is improved Encouraged increased activity as tolerated. Recommend working with physical therapy daily. Recommend to closely monitor labs and vital signs. Labs ordered for am. Due to multiple complex medical issues, overall prognosis is extremely guarded. The impression and plan of care has been dictated by Gretel George Nurse Practitioner as directed. Dr. Darryn MD I have performed a history and examination and MDM of this patient, discussed the same with the dictator, and agree with the dictator's assessment and plan as written ,documented as a scribe. Based on total visit time, I have performed more than 50% of the visit. Objective - Vital Signs Vital signs: Vital Signs Temp 97.9 F 07/04/22 11:36 Pulse 99 07/04/22 16:15 Resp 16 07/04/22 16:15 BP 157/80 07/04/22 16:15 Pulse Ox 99 07/04/22 16:15 FiO2 Intake & Output 07/03/22 07/04/22 07/04/22 18:59 06:59 18:59 Intake Total 100 540 Balance 100 540 Weight 62.596 kg Intake: Intake, IV Titration 100 Amount Sodium Ferric Gluconat- 100 Sucrose 125 mg In Sodium Chloride 0.9% 100 ml @ 100 mls/hr IVPB DAILY [facility] Rx#:[id number] Oral 540 Other: Voiding Method Toilet Toilet Bedside Commode Bedside Commode # Voids 3 1 # Bowel Movements 1 - Labs CBC & Chem 7: 07/04/22 06:09 07/04/22 06:09 Labs: Abnormal Lab Results - Last 24 Hours (Table) 07/04/22 07/04/22 Range/Units 06:09 06:09 RBC 3.72 L (3.80-5.40) m/uL Hgb 10.0 L (11.4-16.0) gm/dL Hct 32.5 L (34.0-46.0) % MCHC 30.9 L (31.0-37.0) g/dL RDW 16.5 H (11.5-15.5) % Neutrophils # 8.5 H (1.3-7.7) k/uL Lymphocytes # 0.8 L (1.0-4.8) k/uL Sodium 134 L (137-145) mmol/L Calcium 7.6 L (8.4-10.2) mg/dL AST 51 H (14-36) U/L Total Protein 5.7 L (6.3-8.2) g/dL Albumin 2.4 L (3.5-5.0) g/dL
--- NOTE | 2022-07-04 16:49 | P.PCN ---
Date of Procedure: 07/04/22 Preoperative Diagnosis: ascites Postoperative Diagnosis: same Procedure(s) Performed: paracentesis Anesthesia: local Estimated Blood Loss (ml): 4 Pathology: other (syringe obtained for analysis) Condition: stable Disposition: no change Operative Findings: ascites fluid, no immediate complication Description of Procedure: 5 fr right abdomen puncture, full report follows
--- NOTE | 2022-07-04 21:09 | P.PN ---
Subjective Progress Note Date: 07/04/22 Mucocitis is improving, plan is for discharge soon on diflucan and mouth rinse Objective - Vital Signs Vital signs: Vital Signs Temp 98.4 F 07/04/22 19:58 Pulse 92 07/04/22 19:58 Resp 18 07/04/22 19:58 BP 151/90 07/04/22 19:58 Pulse Ox 97 07/04/22 19:58 FiO2 Intake & Output 07/04/22 07/04/22 07/05/22 06:59 18:59 06:59 Intake Total 540 240 Balance 540 240 Intake: Oral 540 240 Other: Voiding Method Toilet Toilet Bedside Commode Bedside Commode # Voids 1 1 - Labs CBC & Chem 7: 07/04/22 06:09 07/04/22 06:09 Labs: Abnormal Lab Results - Last 24 Hours (Table) 07/04/22 07/04/22 Range/Units 06:09 06:09 RBC 3.72 L (3.80-5.40) m/uL Hgb 10.0 L (11.4-16.0) gm/dL Hct 32.5 L (34.0-46.0) % MCHC 30.9 L (31.0-37.0) g/dL RDW 16.5 H (11.5-15.5) % Neutrophils # 8.5 H (1.3-7.7) k/uL Lymphocytes # 0.8 L (1.0-4.8) k/uL Sodium 134 L (137-145) mmol/L Calcium 7.6 L (8.4-10.2) mg/dL AST 51 H (14-36) U/L Total Protein 5.7 L (6.3-8.2) g/dL Albumin 2.4 L (3.5-5.0) g/dL Assessment and Plan (1) Metastatic colon cancer to liver Narrative/Plan: peritoneum, ascites fluid and lungs Patient has dramically worsened since discharged two days prior from [facility] Cytology from ascites positive for adenocarcinoma, Biopsy of liver positive for adenocarcinoma consistent with colon cancer Status post chemotherapy and paracentesis Current Visit: Yes Status: Acute Priority: High Code(s): C18.9 - MALIGNANT NEOPLASM OF COLON, UNSPECIFIED; C78.7 - SECONDARY MALIG NEOPLASM OF LIVER AND INTRAHEPATIC BILE DUCT SNOMED Code(s): 737509864 Plan: Labs today Paracentesis prior to discharge Dr. Camacho: I have completed the full history an physical and developed the above impression and plan, agree with dictation, dictated as a ascribe
[2022-07-05 04:18] LABS: Appearance,BF Cloudy
[2022-07-05] MEDS: LACTATED RINGERS 1,000 ML IV SCH (05:39)
[2022-07-05] MEDS: SODIUM FERRIC GLUCONAT-SUCROSE 125 MG in SODIUM CHLORIDE 0.9% 100 ML IVPB SCH (09:08)
[2022-07-05] MEDS: THIAMINE 100 MG TAB PO SCH (09:08)
[2022-07-05 09:26] LABS: Basophils # (A) 0.06 X 10*3/uL (0.00-0.10); Basophils % (A) 0.5 %; Eosinophils # (A) 0.06 X 10*3/uL (0.04-0.35); Eosinophils % (A) 0.5 %; HCT 32.7 % (37.2-46.3); HGB 9.9 g/dL (12.0-15.0); Immature Grans, Automated 0.4 %; Lymphocytes # (A) 0.85 X 10*3/uL (0.90-5.00); Lymphocytes % (A) 7.4 %; MCH 26.8 pg (27.0-32.0); MCHC 30.3 g/dL (32.0-37.0); MCV 88.4 fL (80.0-97.0); Monocytes # (A) 0.25 X 10*3/uL (0.20-1.00); Monocytes % (A) 2.2 %; NRBC Per 100 WBC 0.2 /100 WBCS (0.0-0.0); Neutrophils # (A) 10.15 X 10*3/uL (1.80-7.70); Platelet Count 281 X 10*3/uL (140-440); RDW 17.9 % (11.5-14.5); WBC 11.41 X 10*3/uL (4.50-10.00)
[2022-07-05 12:31] LABS: African American GFR (CKD) 97.6 (60.0-200.0); Albumin 2.4 g/dL (3.8-4.9); Albumin/Globulin Ratio 0.71 (1.60-3.17); Anion Gap 6.4 mmol/L (10.00-18.00); BUN/Creat Ratio 18.98 Ratio (12.00-20.00); Blood Urea Nitrogen 12.7 mg/dL (9.0-27.0); Carbon Dioxide 24.9 mmol/L (20.0-27.5); Globulin 3.3 g/dL (1.6-3.3); Non-African American GFR(CKD) 84.2 (60.0-200.0); Potassium 4.4 mmol/L (3.5-5.5); Total Bilirubin 0.4 mg/dL (0.30-1.20); Total Protein 5.7 g/dL (6.2-8.2)
--- NOTE | 2022-07-06 01:35 | PN ---
PROGRESS NOTE SUBJECTIVE: This is a 76-year-old woman who was admitted with metastatic malignancy, is being closely monitored. The patient had bariatric chemotherapy. No chest pain. No palpitations. The patient is generally weak. PHYSICAL EXAMINATION: VITAL SIGNS: Pulse is 92, blood pressure 150/80, respirations 18. HEENT: Conjunctivae normal. CARDIOVASCULAR: S1, S2 muffled. ABDOMEN: Soft. RESPIRATIONS: Clear to auscultation. Mild diffuse distention. NERVOUS SYSTEM: Diffusely weak. LABS: Reviewed. ASSESSMENT: 1. Colon cancer with metastases of the liver, lungs, and peritoneum. 2. Malignant ascites, status post aspiration. 3. Hyponatremia. 4. Gait dysfunction. 5. Multiple medical issues. RECOMMENDATIONS AND DISCUSSION: I recommend to continue current medications and symptomatic treatment. PT/OT evaluation. Continue supportive treatment and closely follow with Oncology. Prognosis guarded. Further recommendations to follow. MMODL / IJN: [id number] /
[2022-07-06] MEDS: LACTATED RINGERS 1,000 ML IV SCH (05:39)
[2022-07-06] MEDS: SODIUM FERRIC GLUCONAT-SUCROSE 125 MG in SODIUM CHLORIDE 0.9% 100 ML IVPB SCH (09:08)
[2022-07-06] MEDS: THIAMINE 100 MG TAB PO SCH (09:08)
[2022-07-06] MEDS: FERROUS SULFATE 325 MG TAB PO SCH (17:54)
[2022-07-06 19:42] VITALS: RESP 14
[2022-07-07 04:41] VITALS: TEMP 98.5
--- NOTE | 2022-07-07 08:27 | PN ---
PROGRESS NOTE SUBJECTIVE: This is a 76-year-old woman who was admitted with metastatic malignancy. Has finished palliative chemotherapy. No chest pain. No palpitations. She complains of extreme weakness. Seems like the family would like to take the patient home. PHYSICAL EXAMINATION: VITAL SIGNS: Pulse 87, blood pressure 114/88, respirations 16. CHEST: Clear to auscultation. CARDIOVASCULAR: S1, S2 normal. ABDOMEN: Ascites of mass, bilateral palpable. NERVOUS SYSTEM: Diffusely weak. LABS: Hemoglobin 9.9. Rest of the labs are reviewed. ASSESSMENT: 1. Colon cancer with metastases of the liver, lungs, and peritoneum. 2. Malignant ascites, status post aspiration. 3. Hyponatremia. 4. Multiple medical issues. 5. Gait dysfunction. RECOMMENDATIONS: Recommended to continue current medications and symptomatic treatment. Otherwise, closely follow with Oncology. Further recommendation to follow. MMAISHWARYAL / ROBERTN: [id number] /
[2022-07-07] MEDS: THIAMINE 100 MG TAB PO SCH (11:07)
[2022-07-07] MEDS: FERROUS SULFATE 325 MG TAB PO SCH ×2 (11:07→18:00)
--- NOTE | 2022-07-07 13:02 | P.EN ---
Patient will be requiring a hospital bed on discharge for pain management as patient has colon cancer with metastasis and requires frequent position changes as the body is not able to lay without pain in the ordinary bed and recommending head of the bed elevated 30-45 at all times in order to alleviate her abdominal pain.
--- NOTE | 2022-07-07 17:36 | P.PN ---
Subjective Progress Note Date: 07/07/22 Patient seen and evaluated, she is still very weak, Dr. Colon planning port ed of week. She refused PT/OT today and is requiring hospital bed at home. Family at bedside, apparently discharge ?home today, concern of safety and decreasing performance among inadequate nutrition. DIscussed with primary team. Objective - Vital Signs Vital signs: Vital Signs Temp 98.5 F 07/07/22 12:08 Pulse 90 07/07/22 12:08 Resp 14 07/07/22 12:08 BP 126/82 07/07/22 12:08 Pulse Ox 98 07/07/22 12:08 FiO2 Intake & Output 07/06/22 07/07/22 07/07/22 18:59 06:59 18:59 Intake Total 600 Balance 600 Intake: Oral 600 Other: Voiding Method Toilet Toilet Diaper Diaper Incontinent Incontinent # Voids 3 1 # Bowel Movements 1 - Exam Constitutional General appearance: Present: cooperative, no acute distress, thin - EENT Eyes: Present: anicteric sclerae, EOMI ENT: Present: hearing grossly normal, normal oropharynx - Respiratory Respiratory: bilateral: CTA - Cardiovascular Rhythm: regular Heart sounds: normal: S1, S2 Abnormal Heart Sounds: Absent: systolic murmur, diastolic murmur, rub, S3 Gallop, S4 Gallop, click, other - Peripheral edema leg Peripheral Edema: bilateral: Trace - Gastrointestinal Gastrointestinal Comment(s): Dullness to percussion on the flanks, tympany on the top of the abdomen. General gastrointestinal: Present: distended, soft - Neurologic Neurologic: Present: CNII-XII intact (Grossly) - Musculoskeletal Musculoskeletal: Present: generalized weakness, strength equal bilaterally - Psychiatric Psychiatric Comment(s): Remote memory much more intact than short-term. Psychiatric: Present: A&O x's 3, appropriate affect, intact judgment & insight - Labs CBC & Chem 7: 07/05/22 05:02 07/05/22 05:02 Labs: Microbiology - Last 24 Hours (Table) 07/04/22 15:45 Anaerobic Culture - Preliminary Paracentesis Fluid 07/04/22 15:45 Gram Stain - Preliminary Paracentesis Fluid Body Fluid Culture - Preliminary Assessment and Plan (1) Metastatic colon cancer to liver Narrative/Plan: peritoneum, ascites fluid and lungs Patient has dramically worsened since discharged two days prior from [facility] Cytology from ascites positive for adenocarcinoma, Biopsy of liver positive for adenocarcinoma consistent with colon cancer Status post chemotherapy and paracentesis Current Visit: Yes Status: Acute Priority: High Code(s): C18.9 - MALIGNANT NEOPLASM OF COLON, UNSPECIFIED; C78.7 - SECONDARY MALIG NEOPLASM OF LIVER AND INTRAHEPATIC BILE DUCT SNOMED Code(s): 180538654 Plan: Labs today Status post chemo with FOLFOX and Paracentesis She will need PT/OT, [facility] as chemo cycle two due this week but general surgery cannot get till end of week, so will resume the following Dr. Camacho: I have completed the full history an physical and developed the above impression and plan, agree with dictation, dictated as a ascribe
--- NOTE | 2022-07-08 01:09 | P.PN ---
Subjective Progress Note Date: 07/07/22 76-year-old female who presents to the emergency department for abdominal pain and swelling and lower extremity swelling. She was at [facility] for these symptoms 4 days ago. She had imaging done as well as biopsies and was found to have ovarian mass, Liver mass, Ascites and pulmonary nodules consistent with metastatic malignant pricess, Paracentesis and liver biopsy revealed consistent with colon cancer adenocarcinoma. She did have fluid in her abdomen at that time and had a paracentesis. The fluid has since reaccumulated, and she is complaining of severe abdominal pain. She is having regular bowel movements. Additionally, she has developed swelling in her legs bilaterally. This is also continuing to progress, and she is having pain whenever they are touched or when she tries to walk. Also states that they feel very heavy. Daughter stated she has been worse since discharge and was brought to [facility] last night for IVF and supportive care. She is not eating and concern of rapid growing cancer, she will be admitted with urgent pallaitive chemotherapy and therapeutic paracentesis Lab work reveals leukocytosis and several electrolyte abnormalities. CT of the abdomen and pelvis was obtained. 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 She also has a large amount of ascites throughout the abdomen and pelvis. Dr. Colon was consulted for Mediport placement and the interventional radiology and PICC team were also con consulted, as the patient will need therapeutic paracentesis and PICC line placement to begin chemo as soon as possible. 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 Colon following. Plan was for possible mediport placement although has received a PICC line and will hold of on mediport for now. Patient is status post paracentesis with ascites and reports her abdomen pain and distention has improved. Patient reports to tolerating diet. No reports of nausea or vomiting noted. Patient is afebrile and denies chest pain or shortness of breath. Patient is to start palliative chemo today. Recommend repeat am labs. 07/01/2022 Patient is seen this morning and continued on palliative chemotherapy with oncology following closely. Patient denies abdominal pain and reports to tolerating diet with no nausea or vomiting noted. Patient is afebrile and noted increase in WBC. Hemoglobin is stable. Sodium on the lower side and recommend to monitor closely. No chest pain or shortness of breath noted. Encouraged increased activity as tolerated. PT/OT evaluation. 07/02/2022 Patient is seen and evaluated this morning currently receiving last dose of the palliative chemotherapy and have discussed with oncology about closely monitoring. Will consult physical therapy and also dietitian as patient's oral intake continues to be poor. Plan is for possible home with home care when stabilized and discharged. WBC is trending down at 11.10 with hemoglobin of 9.5, sodium is 129 with a creatinine of 1.0. Patient is afebrile and vital signs are stable and denies any shortness of breath or chest pains. Patient is 99% on room air. Patient is lethargic today although arousable. 07/03/2022 Patient is seen this morning and lethargic but arousable. Patient has completed chemotherapy with no side effects noted. Oncology following closely and has ordered abdominal ultrasound as abdomen continues to be distended. Patient is denying abdominal pain and no reports of nausea or vomiting noted. Patient is afebrile and denies chest pain or shortness of breath. Oral intake is poor and encouraged oral intake and pleasure foods from home. Social work following and plan is for patient to return home with family and home care. Patient is weak and recommend PT/OT evaluation. 07/04/2022 Patient is seen and evaluated this morning with family members at the bedside. Patient continues to be alert although lethargic at times. Interventional radiology reviewing abdominal ultrasound for possible paracentesis of which patient and family are agreeable. Patient apparently removed her PICC line and has no IV access and ordered Accucath. Oncology following and recommending close monitoring of oral intake and overall clinical condition with possible discharge home with home care and family on Thursday if patient tolerates paracentesis and is doing well. Encouraged oral intake and recommend repeat labs. She is currently afebrile and denies chest pain or shortness of breath. Patient has received IV iron and recommend repeat labs. Patient's blood pressure is mildly elevated and recommend to closely monitor. 07/07/2022 Patient seen and evaluated and followed this morning with multiple family members at the bedside. ONcology following and requesting mediport be placed and this was discussed with Dr. Colon and arrangements being made of possible mediport end of week. Patient continues to be weak and poor oral intake although denies worsening pain. Patient reports no chest pain or shortness of breath. Patient is being planned for home with family and home care with palliative care and arranging for discharge planning needs with case management following. Enc ouraged oral intake and increased activity as tolerated. PT following and patient refused today. Patient is afebrile. Prognosis is guarded. Review of systems: Constitutional: No reports of fatigue, fever, or chills Cardiovascular: No reports of chest pain or palpitations Respiratory: No reports of shortness of breath or cough GI: No reports of nausea, vomiting, or diarrhea, reports abdominal distention, poor appetite : No reports of dysuria or retention Neurovascular: reports of generalized weakness All medications have been reviewed Physical exam: General appearance: Sleeping although arousable alert, lying in bed, well developed, well nourished Head exam: Present: atraumatic, normocephalic, normal inspection Respiratory exam: diminished breath sounds bilaterally with no wheezing or rhonchi noted Cardiovascular Exam: S1, S2 muffled GI/Abdominal exam: soft, distended, normal bowel sounds, no guarding or rigidity noted Extremities exam: pedal edema (3+), calf tenderness Neurological exam: alert, oriented X3, CN II-XII intact, diffusely weak Psychiatric exam: normal affect, normal mood Skin exam: warm, dry, intact, no rash or lesions noted Assessment: Metastatic colon cancer with metastasis to liver, lungs and peritoneum Malignant ascites; status post paracentesis Hyponatremia, likely hypovolemic, improved leukocytosis, possibly reactive, improved Hypertension DVT prophylaxis GI prophylaxis full code Plan: Patient to continue with current medications and oncology following Patient is post paracentesis on thursday Mediport being requested by surgery Dr. Colon and unable to at this time until end of week and this was discussed with surgery, oncology, and family Arranging discharge planning to home with home care, palliative care and arranging for hospital bed with case management following Encouraged increased activity as tolerated. Recommend working with physical therapy daily. Encouraged oral intake and intake is fair to poor. Due to multiple complex medical issues, overall prognosis is extremely guarded. Possible discharge home in 24 hours. The impression and plan of care has been dictated by Gretel George, Nurse Practitioner as directed. Dr. Darryn MD I have performed a history and examination and MDM of this patient, discussed the same with the dictator, and agree with the dictator's assessment and plan as written ,documented as a scribe. Based on total visit time, I have performed more than 50% of the visit. Objective - Vital Signs Vital signs: Vital Signs Temp 98.5 F 07/07/22 12:08 Pulse 90 07/07/22 12:08 Resp 14 07/07/22 12:08 BP 126/82 07/07/22 12:08 Pulse Ox 98 07/07/22 12:08 FiO2 Intake & Output 07/06/22 07/07/22 07/07/22 18:59 06:59 18:59 Intake Total 600 Balance 600 Intake: Oral 600 Other: Voiding Method Toilet Toilet Diaper Diaper Incontinent Incontinent # Voids 3 1 # Bowel Movements 1 - Labs CBC & Chem 7: 07/05/22 05:02 07/05/22 05:02 Labs: Microbiology - Last 24 Hours (Table) 07/04/22 15:45 Anaerobic Culture - Preliminary Paracentesis Fluid 07/04/22 15:45 Gram Stain - Preliminary Paracentesis Fluid Body Fluid Culture - Preliminary
[2022-07-08] MEDS: FERROUS SULFATE 325 MG TAB PO SCH (07:57)
[2022-07-08] MEDS: THIAMINE 100 MG TAB PO SCH (07:57)
[2022-07-08 12:11] VITALS: BP 144/91; PULSE 89
--- NOTE | 2022-07-08 18:10 | P.PN ---
Subjective Progress Note Date: 07/08/22 Principal diagnosis: metastatic colon adenocarcinoma, inpt chemo In follow-up today, patient has no new c/o, she is anxious to go home. She is denying any significant SE from chemo, no fever, vomiting, diarrhea. Abd distension is stable. Objective - Vital Signs Vital signs: Vital Signs Temp 98.5 F 07/08/22 12:10 Pulse 89 07/08/22 12:10 Resp 14 07/08/22 12:10 BP 144/91 07/08/22 12:10 Pulse Ox 98 07/07/22 12:08 FiO2 Intake & Output 07/07/22 07/08/22 07/08/22 18:59 06:59 18:59 Intake Total 100 Balance 100 Intake: Oral 100 Other: Voiding Method Toilet Toilet Diaper Diaper Incontinent Incontinent # Voids 2 3 # Bowel Movements 2 - Constitutional General appearance: Present: cooperative, no acute distress, thin - EENT Eyes: Present: anicteric sclerae, EOMI ENT: Present: hearing grossly normal, normal oropharynx - Respiratory Respiratory: bilateral: CTA - Cardiovascular Rhythm: regular Heart sounds: normal: S1, S2 Abnormal Heart Sounds: Absent: systolic murmur, diastolic murmur, rub, S3 Gallop, S4 Gallop, click, other - Peripheral edema leg Peripheral Edema: bilateral: Trace - Gastrointestinal General gastrointestinal: Present: distended, normal bowel sounds, soft - Neurologic Neurologic: Present: CNII-XII intact - Musculoskeletal Musculoskeletal: Present: generalized weakness - Psychiatric Psychiatric: Present: A&O x's 3, appropriate affect, intact judgment & insight - Labs CBC & Chem 7: 07/05/22 05:02 07/05/22 05:02 Labs: Microbiology - Last 24 Hours (Table) 07/04/22 15:45 Gram Stain - Preliminary Paracentesis Fluid Body Fluid Culture - Preliminary Assessment and Plan (1) Abdominal ascites Status: Acute Priority: High Code(s): R18.8 - OTHER ASCITES SNOMED Code(s): 959891507 (2) Metastatic colon cancer to liver Status: Acute Priority: High Code(s): C18.9 - MALIGNANT NEOPLASM OF COLON, UNSPECIFIED; C78.7 - SECONDARY MALIG NEOPLASM OF LIVER AND INTRAHEPATIC BILE DUCT SNOMED Code(s): 168389222 Plan: Standing order for paracentesis will be sent to Radiology dept. FOLFOX without 5-FU bolus completed last week. No significant SE reported. CBC on 27trh was stable. LUE PICC line. Parenteral iron for iron deficient anemia given. Reviewed case with Mechanic Foreman and daughter. Plans in place for DC with DME. F/U already in chart. Port placement planned. Will f/u on pain meds.
--- NOTE | 2022-07-09 10:00 | P.DS ---
Providers Date of admission: 06/27/22 15:56 Expected date of discharge: 07/08/22 Attending physician: Kaci Lopez MD Consults: 06/27/22 15:44 Consult Physician Urgent Consulting Provider: Vicente Tanner Consult Reason/Comments: New metastatic cancer diagnosis Do you want consulting provider notified?: Yes 06/27/22 16:12 Consult Physician Urgent Consulting Provider: Jaja Colon Consult Reason/Comments: Mediport for chemo patient Do you want consulting provider notified?: Yes Primary care physician: Ric Waters MD Hospital Course: Final diagnosis Metastatic colon cancer with metastasis to liver, lungs and peritoneum Malignant ascites; status post paracentesis x2, outpatient palliative paracentesis being arranged Hyponatremia, likely hypovolemic, improved leukocytosis, possibly reactive, improved Hypertension DVT prophylaxis GI prophylaxis full code Discharge disposition Patient is being discharged in a stable condition with guarded prognosis to home with home care and palliative care. Patient will follow-up with Dr. Tanner in the outpatient setting upon discharge. Patient is to also follow-up with Dr. Colon for Mediport placement as scheduled. Total time taken is greater than 35 minutes. Hospital course This is a 76-year-old female who was recently admitted with increased abdominal distention and abdominal pain and weakness and was being closely monitored. Patient was given palliative chemo during inpatient hospitalization and is being arranged for outpatient treatments along with Mediport placement at the end of this week. Patient continues with weakness and poor oral intake although is anxious to go home and family willing to take her home with home care and also palliative care. Discharge planning in place with case management is working on providing a hospital bed and necessary DME equipment for discharge. Patient with colon cancer with metastasis with multiple ovarian masses, liver masses pulmonary nodules. Patient also had 2 paracentesis during hospitalization and will be arranged for palliative paracentesis. Patient has a scheduled appointment at the end of this week with Dr. Colon for Mediport placement and also oncology. Currently no reports of chest pain, shortness of breath, or palpitations. Patient is afebrile. No reports of nausea or vomiting and patient is tolerating diet. Patient will be discharged home with palliative and Homecare today. Guarded prognosis Physical exam: Gen: This is a 76-year-old female awake, alert and oriented 3, ill-appearing, thin built HEENT: Head is atraumatic, normocephalic. Pupils equal, round. Sclerae is anicteric. NECK: Supple. No JVD. No lymphadenopathy. No thyromegaly. LUNGS: Diminished breath sounds bilaterally with no wheezes or rhonchi. No intercostal retractions. HEART: Regular rate and rhythm. No murmur. ABDOMEN: Soft. Distended abdomen Bowel sounds are present. No masses. No tenderness. EXTREMITIES: No pedal edema. No calf tenderness. Generalized edema noted on bilateral lower extremities NEUROLOGICAL: Patient is awake, alert and oriented x3. Cranial nerves 2 through 12 are grossly intact. Diffuse weakness Please refer to medication reconciliation sheet for a list of medications. The impression and plan of care has been dictated by Gretel George, Nurse Practitioner as directed. Dr. Darryn MD I have performed a history and examination and MDM of this patient, discussed the same with the dictator, and agree with the dictator's assessment and plan as written ,documented as a scribe. Based on total visit time, I have performed more than 50% of the visit. Patient Condition at Discharge: Fair Plan - Discharge Summary Discharge Rx Participant: No New Discharge Prescriptions: New Ferrous Sulfate [Iron (65 MG Elemental)] 325 mg PO BID-W/MEALS 30 Days #60 tab HYDROcodone/APAP 5-325MG [Buhler 5-325] 1 each PO Q4HR PRN #6 tab PRN Reason: Moderate Pain Thiamine [Vitamin B-1] 100 mg PO DAILY 30 Days #30 tab Discharge Medication List Ferrous Sulfate [Iron (65 MG Elemental)] 325 mg PO BID-W/MEALS 30 Days #60 tab 07/08/22 [Rx] HYDROcodone/APAP 5-325MG [Buhler 5-325] 1 each PO Q4HR PRN #6 tab 07/08/22 [Rx] Thiamine [Vitamin B-1] 100 mg PO DAILY 30 Days #30 tab 07/08/22 [Rx] Follow up Appointment(s)/Referral(s): Vicente Tanner MD [STAFF PHYSICIAN] - 07/10/22 4:00 pm None,Stated [REFERRING] - 1-2 days Jaja Colon DO [Doctor of Osteopathic Medicine] - 07/10/22 9:45 am () Activity/Diet/Wound Care/Special Instructions: activity Limited until follow-up Continue with medications as prescribed Follow-up with oncology as scheduled Follow-up with general surgery for Mediport placement Continue to encourage oral intake Continue with home care and palliative care outpatient Discharge Disposition: HOME WITH HOME HEALTH SERVICES
== END 2022-07-08 14:55 | disposition home health service (06) | DRG 847 ==
LOC: EC 10:57 → 5NMEDONC 15:56
PROVIDERS: ADMIT Internal Medicine; ATTEND Internal Medicine
PROC: 0W9G3ZZ Drainage of Peritoneal Cavity, Percutaneous Approach (ICD-10-PCS; 2022-06-28)
PROC: 02HV33Z Insertion of Infusion Device into Superior Vena Cava, Percutaneous Approach (ICD-10-PCS; principal; 2022-06-28 08:20)
PROC: 3E04305 Introduction of Other Antineoplastic into Central Vein, Percutaneous Approach (ICD-10-PCS; 2022-06-30)
PROC: 0W9G3ZZ Drainage of Peritoneal Cavity, Percutaneous Approach (ICD-10-PCS; 2022-07-04)
DX: Z51.11 Encounter for antineoplastic chemotherapy (principal); C18.9 Malignant neoplasm of colon, unspecified; C78.01 Secondary malignant neoplasm of right lung; C78.6 Secondary malignant neoplasm of retroperitoneum and peritoneum; C78.7 Secondary malignant neoplasm of liver and intrahepatic bile duct; C78.02 Secondary malignant neoplasm of left lung; C79.61 Secondary malignant neoplasm of right ovary; E87.1 Hypo-osmolality and hyponatremia; R18.0 Malignant ascites; G89.3 Neoplasm related pain (acute) (chronic); D72.829 Elevated white blood cell count, unspecified; I69.328 Other speech and language deficits following cerebral infarction; E86.0 Dehydration; E86.1 Hypovolemia; I10 Essential (primary) hypertension; N83.9 Noninflammatory disorder of ovary, fallopian tube and broad ligament, unspecified; R62.7 Adult failure to thrive; Z51.5 Encounter for palliative care; Z53.20 Procedure and treatment not carried out because of patient's decision for unspecified reasons; Z79.2 Long term (current) use of antibiotics; Z82.3 Family history of stroke; Z83.3 Family history of diabetes mellitus; Z87.891 Personal history of nicotine dependence; Z63.4 Disappearance and death of family member
CPT/HCPCS: 36410; 36415; 36573; 49083; 74177; 76705; 76937; 80048; 80053; 82150; 82306; 82378; 82607; 82728; 82746; 83540; 83550; 83615; 83690; 83735; 83880; 84425; 84550; 85025; 85610; 85730; 87070; 87075; 87205; 89050; 99285

== ENCOUNTER → 2022-07-16 | Day surgery (SDC) | payer MEDICARE, OTHER ==
[~2022-07-16] MED LIST: LIDOCAINE 1% INJ 10MG/ML (30 ML VIAL-PF) SQ ONE
[2022-07-16 11:57] VITALS: TEMP 98.1
[2022-07-16 19:49] VITALS: BP 127/68; PULSE 80; RESP 14
== END | disposition home or self-care (01) ==
LOC: CATHCVL 11:00
PROVIDERS: ATTEND Radiology Diagnostic Radiology
DX: C18.9 Malignant neoplasm of colon, unspecified (principal); Z79.899 Other long term (current) drug therapy; Z86.73 Personal history of transient ischemic attack (TIA), and cerebral infarction without residual deficits; Z92.21 Personal history of antineoplastic chemotherapy
CPT/HCPCS: 36573; C1751; C1769; J2001

== ENCOUNTER 2022-07-17 12:22 | Emergency (ER) | payer MEDICARE, OTHER ==
[2022-07-17 12:59] VITALS: BP 126/80; PULSE 91; RESP 20; TEMP 98.4
[2022-07-17 14:53] LABS: Anisocytosis Slight; Basophils % (A) 1 %; Eosinophils % (A) 0 %; HCT 33.4 % (34.0-46.0); HGB 10.3 gm/dL (11.4-16.0); Hypochromasia Slight; Lymphocytes # (A) 0.8 k/uL (1.0-4.8); Lymphocytes % (A) 17 %; MCH 27.3 pg (25.0-35.0); MCV 88.1 fL (80.0-100.0); Mean Platelet Volume 7.8; Monocytes # (A) 0.5 k/uL (0-1.0); Monocytes % (A) 12 %; Neutrophils # (A) 3.1 k/uL (1.3-7.7); Neutrophils % (A) 67 %; Platelet Count 385 k/uL (150-450); RBC 3.79 m/uL (3.80-5.40); RDW 17.6 % (11.5-15.5); WBC 4.6 k/uL (3.8-10.6)
[2022-07-17 15:03] LABS: ALT 6 U/L (4-34); AST 25 U/L (14-36); African American GFR (CKD) >90 (>60 ml/min/1.73 sqM); Albumin 2.5 g/dL (3.5-5.0); Alkaline Phosphatase 96 U/L (38-126); Anion Gap 6 mmol/L; Blood Urea Nitrogen 21 mg/dL (7-17); Calcium 7.9 mg/dL (8.4-10.2); Carbon Dioxide 27 mmol/L (22-30); Chloride 102 mmol/L (98-107); Glucose 73 mg/dL (74-99); Lipase 93 U/L (23-300); Non-African American GFR(CKD) 86 (>60 ml/min/1.73 sqM); Partial Thromboplastin Time 30.1 sec (22.0-30.0); Potassium 3.9 mmol/L (3.5-5.1); Prothrombin Time 10.7 sec (9.0-12.0); Sodium 135 mmol/L (137-145); Total Bilirubin 0.5 mg/dL (0.2-1.3); Total Protein 5.9 g/dL (6.3-8.2)
[2022-07-17] MEDS ORDERED: MORPHINE SULFATE 4 MG/ML SYRINGE IVP STA (15:03)
[2022-07-17] MEDS ORDERED: FUROSEMIDE 10 MG/ML 4 ML VIAL IV STA (15:10)
--- NOTE | 2022-07-17 15:40 | ED ---
Abdominal Pain HPI - General Chief Complaint: Abdominal Pain Stated Complaint: leg and abd swelling,pain,CRYSTAL Time Seen by Provider: 07/17/22 13:50 Source: patient Mode of arrival: ambulatory Limitations: no limitations - History of Present Illness Initial Comments: 76-year-old female with past history of metastatic colon cancer to the liver with complaint of abdominal distention. Patient has ascites and last paracentesis was done on June 27. At that hospitalization the patient was supposed to be set up for therapeutic taps. The next one was scheduled for July 22. Patient has had increased abdominal discomfort with lower extremity swelling. She has Abrams at home however refuses to take it. Family presents today requesting paracentesis due to her worsening pain. She denies shortness of breath. No nausea or vomiting. Patient not on any diuretics at this time. She does have an appointment tomorrow to have her port placed. Has not been started on any chemo or radiation at this point. - Related Data Home Medications Medication Instructions Recorded Confirmed Ondansetron [Ondansetron Odt] 4 mg PO Q8H PRN 07/11/22 07/22/22 Prochlorperazine [Compazine] 10 mg PO Q6H 07/11/22 07/22/22 Previous Rx's Medication Instructions Recorded Ferrous Sulfate [Iron (65 MG 325 mg PO BID-W/MEALS 30 Days #60 07/08/22 Elemental)] tab HYDROcodone/APAP 5-325MG [Abrams 1 each PO Q4HR PRN #6 tab 07/08/22 5-325] Thiamine [Vitamin B-1] 100 mg PO DAILY 30 Days #30 tab 07/08/22 Furosemide [Lasix] 20 mg PO DAILY #5 tab 07/17/22 Allergies Allergy/AdvReac Type Severity Reaction Status Date / Time metformin Allergy Vomiting Verified 07/22/22 14:09 Review of Systems ROS Statement: Those systems with pertinent positive or pertinent negative responses have been documented in the HPI. ROS Other: All systems not noted in ROS Statement are negative. Past Medical History Past Medical History: Cancer, Hypertension Additional Past Medical History / Comment(s): colon ca with mets(liver,lung,lining of stomach) History of Any Multi-Drug Resistant Organisms: None Reported Past Surgical History: Section Additional Past Surgical History / Comment(s): Liver biopsy, port being placed 07/15/2022 at [facility] Past Anesthesia/Blood Transfusion Reactions: No Reported Reaction Past Psychological History: No Psychological Hx Reported Smoking Status: Never smoker Past Alcohol Use History: None Reported Past Drug Use History: None Reported - Past Family History Father Family Medical History: Diabetes Mellitus Mother Family Medical History: No Reported History Additional Family Medical History / Comment(s): Mother just , she was 98yrs old. Sister(s) Family Medical History: CVA/TIA General Exam Limitations: altered mental status (poor historian) General appearance: alert, in no apparent distress Head exam: Present: atraumatic, normocephalic, normal inspection Eye exam: Present: normal appearance, PERRL, EOMI. Absent: scleral icterus, conjunctival injection, periorbital swelling ENT exam: Present: normal exam, mucous membranes moist Neck exam: Present: normal inspection. Absent: tenderness, meningismus, lymphadenopathy Respiratory exam: Present: normal lung sounds bilaterally. Absent: respiratory distress, wheezes, rales, rhonchi, stridor Cardiovascular Exam: Present: regular rate, normal rhythm, normal heart sounds. Absent: systolic murmur, diastolic murmur, rubs, gallop, clicks GI/Abdominal exam: Present: soft, distended, tenderness (generalized), normal bowel sounds. Absent: guarding, rebound, rigid Extremities exam: Present: normal inspection, full ROM, normal capillary refill, pedal edema. Absent: tenderness, joint swelling, calf tenderness Back exam: Present: normal inspection Neurological exam: Present: alert, CN II-XII intact Psychiatric exam: Present: normal affect, normal mood Skin exam: Present: warm, dry, intact, normal color. Absent: rash Course Vital Signs 07/17/22 12:55 Temperature 98.4 F Pulse Rate 91 Respiratory 20 Rate Blood Pressure 126/80 O2 Sat by Pulse 99 Oximetry Medical Decision Making - Medical Decision Making Upon arrival patient was placed in room 4. Thorough history and physical exam was performed. Patient is hemodynamically stable. Laboratory studies are obtained. Normal kidney function. Patient was given 40 mg of Lasix. I did recommend admission for paracentesis. She does have her port scheduled for placement tomorrow at [facility]. The family is refusing admission. Requesting diuretic for at home and would like the patient to proceed with surgery tomorrow. I did inform family that they need to let the surgeon know that she is having worsening abdominal distention and discomfort prior to the procedure. She will be given 5 days worth of Lasix. Instructed to talk to her care team about this medication change. Return to the emergency department should they be agreeable to admission. Family was agreeable to this plan and the patient was discharged home in stable condition - Lab Data Result diagrams: 07/17/22 14:35 07/17/22 14:35 Lab Results 07/17/22 07/17/22 07/17/22 Range/Units 14:35 14:35 14:35 WBC 4.6 (3.8-10.6) k/uL RBC 3.79 L (3.80-5.40) m/uL Hgb 10.3 L (11.4-16.0) gm/dL Hct 33.4 L (34.0-46.0) % MCV 88.1 (80.0-100.0) fL MCH 27.3 (25.0-35.0) pg MCHC 31.0 (31.0-37.0) g/dL RDW 17.6 H (11.5-15.5) % Plt Count 385 (150-450) k/uL MPV 7.8 Neutrophils % 67 % Lymphocytes % 17 % Monocytes % 12 % Eosinophils % 0 % Basophils % 1 % Neutrophils # 3.1 (1.3-7.7) k/uL Lymphocytes # 0.8 L (1.0-4.8) k/uL Monocytes # 0.5 (0-1.0) k/uL Eosinophils # 0.0 (0-0.7) k/uL Basophils # 0.0 (0-0.2) k/uL Hypochromasia Slight Anisocytosis Slight PT 10.7 (9.0-12.0) sec INR 1.0 (<1.2) APTT 30.1 H (22.0-30.0) sec Sodium 135 L (137-145) mmol/L Potassium 3.9 (3.5-5.1) mmol/L Chloride 102 (98-107) mmol/L Carbon Dioxide 27 (22-30) mmol/L Anion Gap 6 mmol/L BUN 21 H (7-17) mg/dL Creatinine 0.63 (0.52-1.04) mg/dL Est GFR (CKD-EPI)AfAm >90 (>60 ml/min/1.73 sqM) Est GFR (CKD-EPI)NonAf 86 (>60 ml/min/1.73 sqM) Glucose 73 L (74-99) mg/dL Calcium 7.9 L (8.4-10.2) mg/dL Total Bilirubin 0.5 (0.2-1.3) mg/dL AST 25 (14-36) U/L ALT 6 (4-34) U/L Alkaline Phosphatase 96 (38-126) U/L Total Protein 5.9 L (6.3-8.2) g/dL Albumin 2.5 L (3.5-5.0) g/dL Lipase 93 (23-300) U/L - EKG Data EKG Comments: EKG demonstrates sinus rhythm with a rate of 86. IA interval 130. QRS 93. QTC of 418. No acute ST segment elevations or depressions Disposition Clinical Impression: Metastatic cancer, Abdominal ascites Disposition: HOME SELF-CARE Condition: Stable Instructions (If sedation given, give patient instructions): Ascites (ED) Additional Instructions: Please follow-up with your primary care doctor, oncologist and surgeon. Make them aware that you were placed on a water pill for the next 5 days. You may take another dose tonight. Return to the emergency room for any new or worsening symptoms Prescriptions: Furosemide [Lasix] 20 mg PO DAILY #5 tab Is patient prescribed a controlled substance at d/c from ED?: No Referrals: Angelito Nevarez MD [Primary Care Provider] - 1-2 days Time of Disposition: 15:40
== END 2022-07-17 15:52 | disposition home or self-care (01) ==
LOC: EC 12:22
DX: C80.1 Malignant (primary) neoplasm, unspecified (principal); R18.8 Other ascites; I10 Essential (primary) hypertension; Z88.8 Allergy status to other drugs, medicaments and biological substances
CPT/HCPCS: 36415; 93005; 80053; 83690; 85025; 85610; 85730; 99284; 96374; 96375; J2270; J1940

== ENCOUNTER 2022-07-22 12:43 | Day surgery (SDC) | payer MEDICARE, OTHER ==
[2022-07-22 13:06] VITALS: BP 158/92; PULSE 77; RESP 16; TEMP 97.5
--- NOTE | 2022-07-22 13:52 | US ---
Ultrasound-guided paracentesis. DATE OF EXAM: 07/22/2022 CLINICAL HISTORY: Ascites Preliminary imaging demonstrated only a small amount of ascites. The patient deferred the procedure. IMPRESSION: Discontinued paracentesis.
== END 2022-07-22 13:35 | disposition home or self-care (01) ==
LOC: RADPROMAIN 12:43
PROVIDERS: ATTEND Internal Medicine
DX: R18.8 Other ascites (principal)
CPT/HCPCS: 76705

== ENCOUNTER 2022-08-05 13:38 | Day surgery (SDC) | payer MEDICARE, OTHER ==
[2022-08-05 14:35] VITALS: TEMP 98.1
[2022-08-05 15:09] VITALS: BP 174/81; PULSE 75; RESP 16
--- NOTE | 2022-08-05 15:46 | US ---
EXAMINATION TYPE: US paracentesis abd w/image DATE OF EXAM: 08/05/2022 COMPARISON: NONE HISTORY: Ascites. PROCEDURE: Maximal barrier technique was utilized. The skin overlying a suitable pocket of fluid was localized with ultrasound and the overlying skin was prepped and draped. Ultrasound was utilized with sterile technique. Lidocaine was used for local anesthesia and a skin brian made with a scalpel. Catheter was advanced under direct ultrasound guidance into a suitable pocket of fluid and approximately 1.5 liter s of ascites fluid were removed. Catheter was withdrawn and hemostasis achieved. There is no immedi ate complication; the patient is discharged in stable condition. IMPRESSION: STATUS POST ULTRASOUND GUIDED PARACENTESIS FOR PALLIATION OF ASCITES. THIS PROCEDURE WA S PERFORMED BY THE UNDERSIGNED.
== END 2022-08-05 15:05 | disposition home or self-care (01) ==
LOC: RADPROMAIN 13:38
PROVIDERS: ATTEND Internal Medicine
DX: R18.8 Other ascites (principal)
CPT/HCPCS: 49083; 85610; 85730

== ENCOUNTER 2022-08-12 07:53 | Day surgery (SDC) | payer MEDICARE, OTHER ==
[2022-08-12 08:15] VITALS: PULSE 79; RESP 14; TEMP 97.9
[2022-08-12 09:01] VITALS: BP 198/103
== END 2022-08-12 08:50 | disposition home or self-care (01) ==
LOC: RADPROMAIN 07:53
PROVIDERS: ATTEND Internal Medicine
DX: R18.8 Other ascites (principal)

== ENCOUNTER 2022-08-12 08:52 | Emergency (ER) | payer MEDICARE, OTHER ==
[2022-08-12 09:00] VITALS: RESP 16
--- NOTE | 2022-08-12 09:27 | ED ---
General Adult HPI - General Chief complaint: Recheck/Abnormal Lab/Rx Stated complaint: hypertensive Time Seen by Provider: 08/12/22 09:05 Source: patient Mode of arrival: ambulatory Limitations: no limitations - History of Present Illness Initial comments: This patient is a 76-year-old woman who presents to have evaluation for hypertension. The patient states she had gone to have a paracentesis this morning. Patient states she has weekly therapeutic paracentesis, and when they were checking her and they found that her blood pressure was elevated. They checked again and when it remained high they sent her here to have evaluation. The patient states she is not having any physical complaints. She is not having any dyspnea. No pain. She states she would not be here in the emergency department if they had not sent her for evaluation. On review of systems, patient does have some edema bilaterally but that is long-standing. -: minutes(s) Severity scale (1-10): 0 Consistency: constant Improves with: none Worsens with: none Associated Symptoms: denies other symptoms Treatments Prior to Arrival: none - Related Data Home Medications Medication Instructions Recorded Confirmed Ondansetron [Ondansetron Odt] 4 mg PO Q8H PRN 07/11/22 08/12/22 Prochlorperazine [Compazine] 10 mg PO Q6H PRN 07/11/22 08/12/22 Ferrous Sulfate [Iron (65 MG 325 mg PO DAILY 08/12/22 08/12/22 Elemental)] HYDROcodone/APAP 5-325MG [Bodfish 1 tab PO Q4HR PRN 08/12/22 08/12/22 5-325] Loperamide HCl [Loperamide] 2 mg PO DAILY 08/12/22 08/12/22 Sucralfate [Carafate] 1 gm PO ACHS PRN 08/12/22 08/12/22 Previous Rx's Medication Instructions Recorded Thiamine [Vitamin B-1] 100 mg PO DAILY 30 Days #30 tab 07/08/22 Allergies Allergy/AdvReac Type Severity Reaction Status Date / Time metformin Allergy Vomiting Verified 08/12/22 11:08 Review of Systems ROS Statement: Those systems with pertinent positive or pertinent negative responses have been documented in the HPI. ROS Other: All systems not noted in ROS Statement are negative. Constitutional: Denies: fever, chills Respiratory: Denies: cough, dyspnea Cardiovascular: Reports: edema. Denies: chest pain, palpitations, syncope Gastrointestinal: Denies: abdominal pain, vomiting, diarrhea Genitourinary: Denies: dysuria, hematuria Musculoskeletal: Denies: back pain Skin: Denies: rash Neurological: Denies: headache, weakness Past Medical History Past Medical History: Cancer, Hypertension Additional Past Medical History / Comment(s): colon ca with mets(liver,lung,lining of stomach) History of Any Multi-Drug Resistant Organisms: None Reported Past Surgical History: Section Additional Past Surgical History / Comment(s): Liver biopsy, port being placed 07/15/2022 at [facility] Past Anesthesia/Blood Transfusion Reactions: No Reported Reaction Past Psychological History: No Psychological Hx Reported Smoking Status: Never smoker Past Alcohol Use History: None Reported Past Drug Use History: None Reported - Past Family History Father Family Medical History: Diabetes Mellitus Mother Family Medical History: No Reported History Additional Family Medical History / Comment(s): Mother just , she was 98yrs old. Sister(s) Family Medical History: CVA/TIA General Exam Limitations: no limitations General appearance: alert, in no apparent distress Head exam: Present: atraumatic, normocephalic Eye exam: Present: normal appearance. Absent: scleral icterus, conjunctival injection Neck exam: Present: normal inspection Respiratory exam: Present: normal lung sounds bilaterally, rales (Crackles bilateral bases.). Absent: respiratory distress, wheezes, rhonchi, stridor, accessory muscle use, decreased breath sounds, prolonged expiratory Cardiovascular Exam: Present: regular rate, normal rhythm, normal heart sounds. Absent: systolic murmur, diastolic murmur, rubs, gallop GI/Abdominal exam: Present: soft. Absent: distended, tenderness, guarding, rebound, rigid, mass Extremities exam: Present: normal inspection, normal capillary refill, pedal edema. Absent: calf tenderness Back exam: Present: normal inspection. Absent: CVA tenderness (R), CVA tenderness (L) Neurological exam: Present: alert. Absent: motor sensory deficit Skin exam: Present: warm, dry, intact, normal color. Absent: rash Course Vital Signs 08/12/22 08/12/22 08/12/22 08:56 09:20 11:00 Temperature 97.5 F L 98.1 F Pulse Rate 72 68 73 Respiratory 16 16 16 Rate Blood Pressure 171/112 183/90 181/98 O2 Sat by Pulse 98 98 98 Oximetry 08/12/22 12:05 Temperature 97.8 F Pulse Rate 72 Respiratory 16 Rate Blood Pressure 175/93 O2 Sat by Pulse 98 Oximetry EKG Findings - EKG Results: EKG: interpreted by ERMD, sinus rhythm (With occasional supraventricular complex. Rate is 76 bpm), normal axis, normal QRS, normal ST/T Medical Decision Making - Lab Data Result diagrams: 08/12/22 10:59 08/12/22 10:58 Lab Results 08/12/22 08/12/22 08/12/22 Range/Units 09:23 10:58 10:59 WBC 4.0 (3.8-10.6) k/uL RBC 4.51 (3.80-5.40) m/uL Hgb 12.7 (11.4-16.0) gm/dL Hct 40.5 (34.0-46.0) % MCV 89.9 (80.0-100.0) fL MCH 28.2 (25.0-35.0) pg MCHC 31.3 (31.0-37.0) g/dL RDW 18.0 H (11.5-15.5) % Plt Count 132 L D (150-450) k/uL MPV 8.8 Neutrophils % (Manual) 45 % Lymphocytes % (Manual) 40 % Monocytes % (Manual) 13 % Eosinophils % (Manual) 1 % Basophils % (Manual) 1 % Neutrophils # (Manual) 1.80 (1.3-7.7) k/uL Lymphocytes # (Manual) 1.60 (1.0-4.8) k/uL Monocytes # (Manual) 0.52 (0-1.0) k/uL Eosinophils # (Manual) 0.04 (0-0.7) k/uL Basophils # (Manual) 0.04 (0-0.2) k/uL Nucleated RBCs 0 (0-0) /100 WBC Manual Slide Review Performed Hypochromasia Moderate Anisocytosis Slight Sodium 137 (137-145) mmol/L Potassium 4.2 (3.5-5.1) mmol/L Chloride 102 (98-107) mmol/L Carbon Dioxide 27 (22-30) mmol/L Anion Gap 8 mmol/L BUN 12 (7-17) mg/dL Creatinine 0.53 (0.52-1.04) mg/dL Est GFR (CKD-EPI)AfAm >90 (>60 ml/min/1.73 sqM) Est GFR (CKD-EPI)NonAf >90 (>60 ml/min/1.73 sqM) Glucose 86 (74-99) mg/dL Calcium 8.0 L (8.4-10.2) mg/dL Magnesium 1.8 (1.6-2.3) mg/dL Total Bilirubin 0.5 (0.2-1.3) mg/dL AST 24 (14-36) U/L ALT 8 (4-34) U/L Alkaline Phosphatase 80 (38-126) U/L Troponin I (0.000-0.034) ng/mL Total Protein 6.2 L (6.3-8.2) g/dL Albumin 2.8 L (3.5-5.0) g/dL Coronavirus (PCR) Not Detected (Not Detectd) 08/12/22 Range/Units 10:59 WBC (3.8-10.6) k/uL RBC (3.80-5.40) m/uL Hgb (11.4-16.0) gm/dL Hct (34.0-46.0) % MCV (80.0-100.0) fL MCH (25.0-35.0) pg MCHC (31.0-37.0) g/dL RDW (11.5-15.5) % Plt Count (150-450) k/uL MPV Neutrophils % (Manual) % Lymphocytes % (Manual) % Monocytes % (Manual) % Eosinophils % (Manual) % Basophils % (Manual) % Neutrophils # (Manual) (1.3-7.7) k/uL Lymphocytes # (Manual) (1.0-4.8) k/uL Monocytes # (Manual) (0-1.0) k/uL Eosinophils # (Manual) (0-0.7) k/uL Basophils # (Manual) (0-0.2) k/uL Nucleated RBCs (0-0) /100 WBC Manual Slide Review Hypochromasia Anisocytosis Sodium (137-145) mmol/L Potassium (3.5-5.1) mmol/L Chloride (98-107) mmol/L Carbon Dioxide (22-30) mmol/L Anion Gap mmol/L BUN (7-17) mg/dL Creatinine (0.52-1.04) mg/dL Est GFR (CKD-EPI)AfAm (>60 ml/min/1.73 sqM) Est GFR (CKD-EPI)NonAf (>60 ml/min/1.73 sqM) Glucose (74-99) mg/dL Calcium (8.4-10.2) mg/dL Magnesium (1.6-2.3) mg/dL Total Bilirubin (0.2-1.3) mg/dL AST (14-36) U/L ALT (4-34) U/L Alkaline Phosphatase (38-126) U/L Troponin I <0.012 (0.000-0.034) ng/mL Total Protein (6.3-8.2) g/dL Albumin (3.5-5.0) g/dL Coronavirus (PCR) (Not Detectd) Disposition Clinical Impression: Hypertension Disposition: HOME SELF-CARE Condition: Good Instructions (If sedation given, give patient instructions): Hypertension (ED) Is patient prescribed a controlled substance at d/c from ED?: No Referrals: None,Stated [Primary Care Provider] - 1-2 days
--- NOTE | 2022-08-12 10:50 | XR ---
EXAMINATION TYPE: XR chest 1V portable DATE OF EXAM: 08/12/2022 10:24 AM COMPARISON: Chest radiographs from 10/04/2012, CT abdomen and pelvis 06/27/2022. TECHNIQUE: XR chest 1V portable Frontal view of the chest. CLINICAL INDICATION:Female, 76 years old with history of chest pain; FINDINGS: Lungs/Pleura: No pneumothorax. Small right pleural effusion. Bilateral pulmonary nodules measuring up to 1 cm. Pulmonary vascularity: Unremarkable. Heart/mediastinum: Cardiomediastinal silhouette is unremarkable. Musculoskeletal: No acute osseous pathology. Other findings: None Lines/Tubes: [id number] projecting over the right hemithorax with distal tip projecting over the right brachioc ephalic vein. IMPRESSION: Small right pleural effusion with multiple bilateral pulmonary nodules likely reflecting metastatic d isease when compared with CT abdomen and pelvis findings 06/27/2022. This can be further evaluated wit h CT chest.
[2022-08-12 11:15] LABS: ALT 8 U/L (4-34); AST 24 U/L (14-36); African American GFR (CKD) >90 (>60 ml/min/1.73 sqM); Albumin 2.8 g/dL (3.5-5.0); Alkaline Phosphatase 80 U/L (38-126); Anion Gap 8 mmol/L; Blood Urea Nitrogen 12 mg/dL (7-17); Carbon Dioxide 27 mmol/L (22-30); Chloride 102 mmol/L (98-107); Glucose 86 mg/dL (74-99); Magnesium 1.8 mg/dL (1.6-2.3); Non-African American GFR(CKD) >90 (>60 ml/min/1.73 sqM); Potassium 4.2 mmol/L (3.5-5.1); Sodium 137 mmol/L (137-145); Total Bilirubin 0.5 mg/dL (0.2-1.3); Total Protein 6.2 g/dL (6.3-8.2)
[2022-08-12 11:28] LABS: Anisocytosis Slight; HCT 40.5 % (34.0-46.0); HGB 12.7 gm/dL (11.4-16.0); Hypochromasia Moderate; MCH 28.2 pg (25.0-35.0); MCHC 31.3 g/dL (31.0-37.0); MCV 89.9 fL (80.0-100.0); Mean Platelet Volume 8.8; RBC 4.51 m/uL (3.80-5.40)
[2022-08-12 11:59] LABS: Basophils # (M) 0.04 k/uL (0-0.2); Eosinophils # (M) 0.04 k/uL (0-0.7); Monocytes # (M) 0.52 k/uL (0-1.0); Neutrophils % (M) 45 %; Nucleated Red Blood Cells 0 /100 WBC (0-0); Platelet Count 132 k/uL (150-450); Total Cells Counted 100
[2022-08-12] MEDS ORDERED: lisinopriL 10 MG TAB PO STA (12:43)
[2022-08-12 13:03] VITALS: BP 176/100; PULSE 78; TEMP 97.9
== END 2022-08-12 13:00 | disposition home or self-care (01) ==
LOC: EC 08:52
DX: I10 Essential (primary) hypertension (principal); Z86.73 Personal history of transient ischemic attack (TIA), and cerebral infarction without residual deficits; Z88.8 Allergy status to other drugs, medicaments and biological substances
CPT/HCPCS: 36415; 71045; 80053; 83735; 84484; 85025; 87635; 93005; 99284

== ENCOUNTER 2022-08-19 08:04 | Day surgery (SDC) | payer MEDICARE, OTHER ==
[2022-08-19 09:07] LABS: Mean Platelet Volume 7.9; Platelet Count 261 k/uL (150-450); Prothrombin Time 11.3 sec (9.0-12.0)
[2022-08-19 09:16] VITALS: BP 165/79; PULSE 71; RESP 16; TEMP 98.1
[2022-08-19 09:18] LABS: Anisocytosis Slight; Basophils % (A) 1 %; Eosinophils # (A) 0.1 k/uL (0-0.7); Eosinophils % (A) 1 %; HCT 37.6 % (34.0-46.0); HGB 11.3 gm/dL (11.4-16.0); Hypochromasia Marked; Lymphocytes # (A) 1.4 k/uL (1.0-4.8); Lymphocytes % (A) 24 %; MCHC 30.1 g/dL (31.0-37.0); Mean Platelet Volume 7.9; Monocytes # (A) 0.5 k/uL (0-1.0); Monocytes % (A) 8 %; Neutrophils # (A) 3.6 k/uL (1.3-7.7); Neutrophils % (A) 62 %; Platelet Count 261 k/uL (150-450); RBC 4.04 m/uL (3.80-5.40); RDW 18.5 % (11.5-15.5); WBC 5.8 k/uL (3.8-10.6)
--- NOTE | 2022-08-19 09:54 | US ---
Ultrasound-guided paracentesis. DATE OF EXAM: 08/19/2022 CLINICAL HISTORY: Ascites Limited reimaging demonstrated only a very small amount of fluid and the patient wished to defer the procedure IMPRESSION: Discontinued paracentesis.
== END 2022-08-19 09:53 | disposition home or self-care (01) ==
LOC: RADPROMAIN 08:04
PROVIDERS: ATTEND Internal Medicine
DX: R18.8 Other ascites (principal)
CPT/HCPCS: 36415; 76705; 85025; 85049; 85610

== ENCOUNTER 2022-09-08 10:08 | Emergency (ER) | payer MEDICARE, OTHER ==
[2022-09-08 10:13] VITALS: RESP 16; TEMP 97.7
[2022-09-08] MEDS ORDERED: FUROSEMIDE 10 MG/ML 4 ML VIAL IV STA (10:23)
--- NOTE | 2022-09-08 10:30 | ED ---
Abdominal Pain HPI - General Chief Complaint: Abdominal Pain Stated Complaint: possible bowel obstruction Time Seen by Provider: 09/08/22 10:10 Source: patient, family (daughter), EMS, RN notes reviewed, old records reviewed Mode of arrival: EMS Limitations: no limitations - History of Present Illness Initial Comments: 76-year-old female presents to the emergency room with her daughter complaining of no bowel movement since Thursday. One episode of vomiting on Thursday, clear "like spit" after chemotherapy. Patient denies pain however daughter states she is in pain and was asking for pain medication at home. She does have a history of colon cancer with metastasis to liver, lung and stomach. She also has a history of ascites, last paracentesis here on 08/19/22. MD Complaint: other (Constipation) -: days(s) (6) Radiation: none Severity scale (1-10): 0 Context: other (History of colon cancer with metastasis no bowel movement since Thursday) Associated Symptoms: vomiting (1 episode Thursday) - Related Data Home Medications Medication Instructions Recorded Confirmed Ondansetron [Ondansetron Odt] 4 mg PO Q8H PRN 07/11/22 09/08/22 Prochlorperazine [Compazine] 10 mg PO Q6H PRN 07/11/22 09/08/22 Ferrous Sulfate [Iron (65 MG 325 mg PO DAILY 08/12/22 09/08/22 Elemental)] HYDROcodone/APAP 5-325MG [[place] 1 tab PO Q4HR PRN 08/12/22 09/08/22 5-325] Loperamide HCl [Loperamide] 2 mg PO DAILY 08/12/22 09/08/22 Sucralfate [Carafate] 1 gm PO ACHS PRN 08/12/22 09/08/22 Lidocaine-Prilocaine Cream [Emla 1 applic TOPICAL DAILY PRN 09/08/22 09/08/22 Cream 2.5%/2.5%] Previous Rx's Medication Instructions Recorded Thiamine [Vitamin B-1] 100 mg PO DAILY 30 Days #30 tab 07/08/22 Allergies Allergy/AdvReac Type Severity Reaction Status Date / Time metformin Allergy Vomiting Verified 09/08/22 13:42 Review of Systems ROS Statement: Those systems with pertinent positive or pertinent negative responses have been documented in the HPI. ROS Other: All systems not noted in ROS Statement are negative. Past Medical History Past Medical History: Cancer, Hypertension Additional Past Medical History / Comment(s): colon ca with mets(liver,lung, lining of stomach) History of Any Multi-Drug Resistant Organisms: None Reported Past Surgical History: Section Additional Past Surgical History / Comment(s): Liver biopsy, port placed 07/15/2022 at [facility], paracentesis Past Anesthesia/Blood Transfusion Reactions: No Reported Reaction Past Psychological History: No Psychological Hx Reported Smoking Status: Never smoker Past Alcohol Use History: None Reported Past Drug Use History: None Reported - Past Family History Father Family Medical History: Diabetes Mellitus Mother Family Medical History: No Reported History Additional Family Medical History / Comment(s): Mother just , she was 98yrs old. Sister(s) Family Medical History: CVA/TIA General Exam Limitations: no limitations General appearance: alert, in no apparent distress Head exam: Present: atraumatic Eye exam: Absent: periorbital swelling Respiratory exam: Present: rales (Bases). Absent: respiratory distress, wheezes, rhonchi, stridor, chest wall tenderness, accessory muscle use Cardiovascular Exam: Present: regular rate (murmur) GI/Abdominal exam: Present: distended, hyperactive bowel sounds, organomegaly (liver). Absent: guarding, rebound, rigid Extremities exam: Present: pedal edema (3+ blle) Neurological exam: Present: alert Psychiatric exam: Present: normal affect, normal mood Skin exam: Present: warm, dry. Absent: cyanosis, diaphoretic Course Vital Signs 09/08/22 09/08/22 09/08/22 10:10 11:28 14:00 Temperature 97.7 F Pulse Rate 72 77 67 Respiratory 16 16 16 Rate Blood Pressure 144/88 143/94 133/89 O2 Sat by Pulse 100 100 100 Oximetry - Reevaluation(s) Reevaluation #1: 09/08/22 13:[address] Wolfe who will come down and speak with patient and daughter regarding plan of care. Time: 13:15 Medical Decision Making - Medical Decision Making CT shows large irregular hypodensity within the right lateral liver measuring 6.8 x 4.8 consistent with metastatic lesion. Dilated colon with multiple air-fluid levels. Pneumatosis intestinalis is present. Infarcted bowel should be considered. Ascites. Right posterior lung mass and hepatic metastasis smaller than comparison dated 06/27/2022 Chest x-ray shows right lower lobe atelectasis or infiltrate and small pleural effusion. Bilateral pulmonary masses with prominent upper mediastinum associated with adenopathy or enlarged thyroid. No evidence of leukocytosis. Patient is afebrile. No complaints of shortness of breath or cough. Potassium 2.2 patient was given IV replacement. EKG reviewed and shows sinus rhythm. Lactic acid 1.1. BNP 5510, given Lasix. Vital signs are stable. Case discussed with Dr. Wolfe who was at bedside to discuss plan of care with patient and family. Patient will be admitted to the hospital for bowel obstruction, hypokalemia, metastatic cancer. Patient NPO with NG tube. Case discussed with Dr. Leone - Lab Data Result diagrams: 09/08/22 11:28 09/08/22 11:28 Lab Results 09/08/22 09/08/22 09/08/22 Range/Units 11:28 11:28 11:28 WBC 3.4 L (3.8-10.6) k/uL RBC 3.73 L (3.80-5.40) m/uL Hgb 11.0 L (11.4-16.0) gm/dL Hct 34.4 (34.0-46.0) % MCV 92.3 (80.0-100.0) fL MCH 29.6 (25.0-35.0) pg MCHC 32.1 (31.0-37.0) g/dL RDW 17.2 H (11.5-15.5) % Plt Count 158 (150-450) k/uL MPV 8.3 Neutrophils % 72 % Lymphocytes % 21 % Monocytes % 5 % Eosinophils % 1 % Basophils % 0 % Neutrophils # 2.5 (1.3-7.7) k/uL Lymphocytes # 0.7 L (1.0-4.8) k/uL Monocytes # 0.2 (0-1.0) k/uL Eosinophils # 0.0 (0-0.7) k/uL Basophils # 0.0 (0-0.2) k/uL Hypochromasia Moderate Anisocytosis Slight PT 11.4 (9.0-12.0) sec INR 1.1 (<1.2) APTT 23.3 (22.0-30.0) sec Sodium 139 (137-145) mmol/L Potassium 2.2 L* (3.5-5.1) mmol/L Chloride 104 (98-107) mmol/L Carbon Dioxide 27 (22-30) mmol/L Anion Gap 8 mmol/L BUN 29 H (7-17) mg/dL Creatinine 1.01 (0.52-1.04) mg/dL Est GFR (CKD-EPI)AfAm 62 (>60 ml/min/1.73 sqM) Est GFR (CKD-EPI)NonAf 54 (>60 ml/min/1.73 sqM) Glucose 104 H (74-99) mg/dL Plasma Lactic Acid Jaime (0.7-2.0) mmol/L Calcium 8.1 L (8.4-10.2) mg/dL Total Bilirubin 0.6 (0.2-1.3) mg/dL AST 25 (14-36) U/L ALT 9 (4-34) U/L Alkaline Phosphatase 51 (38-126) U/L NT-Pro-B Natriuret Pep pg/mL Total Protein 5.9 L (6.3-8.2) g/dL Albumin 2.9 L (3.5-5.0) g/dL Amylase 56 (30-110) U/L Lipase 87 (23-300) U/L 09/08/22 09/08/22 Range/Units 11:28 11:28 WBC (3.8-10.6) k/uL RBC (3.80-5.40) m/uL Hgb (11.4-16.0) gm/dL Hct (34.0-46.0) % MCV (80.0-100.0) fL MCH (25.0-35.0) pg MCHC (31.0-37.0) g/dL RDW (11.5-15.5) % Plt Count (150-450) k/uL MPV Neutrophils % % Lymphocytes % % Monocytes % % Eosinophils % % Basophils % % Neutrophils # (1.3-7.7) k/uL Lymphocytes # (1.0-4.8) k/uL Monocytes # (0-1.0) k/uL Eosinophils # (0-0.7) k/uL Basophils # (0-0.2) k/uL Hypochromasia Anisocytosis PT (9.0-12.0) sec INR (<1.2) APTT (22.0-30.0) sec Sodium (137-145) mmol/L Potassium (3.5-5.1) mmol/L Chloride (98-107) mmol/L Carbon Dioxide (22-30) mmol/L Anion Gap mmol/L BUN (7-17) mg/dL Creatinine (0.52-1.04) mg/dL Est GFR (CKD-EPI)AfAm (>60 ml/min/1.73 sqM) Est GFR (CKD-EPI)NonAf (>60 ml/min/1.73 sqM) Glucose (74-99) mg/dL Plasma Lactic Acid Jaime 1.1 (0.7-2.0) mmol/L Calcium (8.4-10.2) mg/dL Total Bilirubin (0.2-1.3) mg/dL AST (14-36) U/L ALT (4-34) U/L Alkaline Phosphatase (38-126) U/L NT-Pro-B Natriuret Pep 5510 pg/mL Total Protein (6.3-8.2) g/dL Albumin (3.5-5.0) g/dL Amylase (30-110) U/L Lipase (23-300) U/L - EKG Data EKG shows normal: sinus rhythm (Ventricular rate 77, GA interval 0.131, QRS 0.88, QTc 0.421; normal axis) Disposition Clinical Impression: Hypokalemia, Metastatic cancer, Abdominal pain Disposition: ADMITTED IP TO THIS HOSP Referrals: Angelito Nevarez MD [Primary Care Provider] - 1-2 days Decision Date: 09/08/22 Decision Time: 11:56
[2022-09-08] MEDS ORDERED: fentaNYL (PF) 50 MCG/ML 2 ML AMP IVP STA (10:52)
[2022-09-08 11:49] LABS: Anisocytosis Slight; Basophils % (A) 0 %; Eosinophils % (A) 1 %; HCT 34.4 % (34.0-46.0); Hypochromasia Moderate; Lymphocytes # (A) 0.7 k/uL (1.0-4.8); Lymphocytes % (A) 21 %; MCH 29.6 pg (25.0-35.0); MCHC 32.1 g/dL (31.0-37.0); MCV 92.3 fL (80.0-100.0); Mean Platelet Volume 8.3; Monocytes # (A) 0.2 k/uL (0-1.0); Monocytes % (A) 5 %; Neutrophils # (A) 2.5 k/uL (1.3-7.7); Neutrophils % (A) 72 %; Platelet Count 158 k/uL (150-450); RBC 3.73 m/uL (3.80-5.40); RDW 17.2 % (11.5-15.5); WBC 3.4 k/uL (3.8-10.6)
[2022-09-08 11:53] LABS: Albumin 2.9 g/dL (3.5-5.0); Calcium 8.1 mg/dL (8.4-10.2); Total Bilirubin 0.6 mg/dL (0.2-1.3); Total Protein 5.9 g/dL (6.3-8.2)
[2022-09-08 11:55] LABS: Potassium 2.2 mmol/L (3.5-5.1)
[2022-09-08] MEDS ORDERED: Potassium Replacement Protocol 1 EACH MISC MISCELLANE PRN (11:55)
[2022-09-08 11:57] LABS: INR 1.1 (<1.2); Partial Thromboplastin Time 23.3 sec (22.0-30.0); Prothrombin Time 11.4 sec (9.0-12.0)
--- NOTE | 2022-09-08 12:54 | XR ---
EXAMINATION TYPE: XR chest 2V DATE OF EXAM: 09/08/2022 COMPARISON: 08/12/2022 TECHNIQUE: PA and lateral views submitted. HISTORY: Shortness of breath FINDINGS: Limited inspiration with persistent right-sided small pleural effusion and basilar consolidation. Hea rt size stable. Bilateral pulmonary masses or nodules noted. Arthropathy of the shoulders with diffus e osteopenia. Marked prominence of the upper mediastinum. Adenopathy or enlarged thyroid in the diffe rential diagnosis. IMPRESSION: 1. Limited inspiration with persistent right lower lobe atelectasis or infiltrate and small pleural e ffusion. 2. Bilateral pulmonary masses suspected. 3 prominent upper mediastinum can be associated with adenopa thy or enlarged thyroid.
[2022-09-08] MEDS: POTASSIUM CHLORIDE 20 MEQ in WATER FOR INJECTION 1 100ML.BAG IVPB SCH ×2 (12:55→15:04)
[2022-09-08] MEDS: POTASSIUM CHLORIDE ER 20 MEQ TAB.ER PO SCH ×3 (12:55→15:09)
--- NOTE | 2022-09-08 13:14 | CT ---
EXAMINATION TYPE: CT abdomen pelvis w con DATE OF EXAM: 09/08/2022 COMPARISON: 06/27/2022 INDICATION: Colon obstruction, history of colon cancer with METS DLP: 714.2 mGycm, Automated exposure control for dose reduction was used. CONTRAST: 100 mL of Isovue 300. Study performed without Oral Contrast TECHNIQUE: Axial images were obtained from above the diaphragm to the pubic rami in the axial plane a t 5 mm thick sections. Reconstructed images are reviewed on the computer in the coronal plane. FINDINGS: Limited CT sections are obtained the lung bases. There is a 1.1 cm nodule posterior right lung base. Small right pleural effusion is present. Very minimal compressive atelectasis may be present. Mazariegos ry artery calcification is present.. CT ABDOMEN: Ascites is present. Liver: There is a large irregular hypodensity within the right lateral liver measuring 6.8 x 4.8 cm c ompatible with a metastatic lesion. An expansile lesion may be within the posterior right tip of the liver. There is some vague hypodensity within the anterior right tip of the liver. No suspicious air within the liver. Spleen: Normal Pancreas: Normal Adrenal glands: The adrenal glands are normal. Gallbladder: Normal Kidneys: No masses are evident. No hydronephrosis is present. No cysts are present. Delayed images were obtained through the kidneys, which remain unremarkable. Aorta: Vascular calcification is within the aorta. Inferior vena cava: Normal. CT PELVIS: Pneumatosis intestinalis is within the ascending colon and proximal transverse colon. The colon is di lated with multiple air-fluid levels. Appears be an abrupt transition to the sigmoid colon with a nor mal or decompressed caliber. Appendix: Not visualized. No dilated tubular structure or is identified. Urinary bladder: Normal. Genitourinary structures: Uterus appears normal. Adnexa are normal. Osseous structures: No suspicious lytic or sclerotic lesions. Sacroiliac joint and facet changes are present. IMPRESSIONS: 1. Dilated colon with multiple air-fluid levels. Pneumatosis intestinalis is present. Infarcted karen l should be considered. Report was called to the emergency room PA by Dr. Riggs by telephone at 131 0 hours 09/08/2022. 2. Hepatic metastasis smaller than comparison. 3. Ascites. 4. Posterior right lung mass smaller than comparison.
[2022-09-08] MEDS ORDERED: HYDROmorphone 1 MG/ML 1 ML SYRINGE IVP PRN (13:42)
[2022-09-08] MEDS ORDERED: NALOXONE 0.4 MG/ML 1 ML VIAL IV PRN (13:42)
[2022-09-08] MEDS ORDERED: 0.9% NACL WITH KCL 20 MEQ/L 1,000 ML IV SCH (13:45)
[2022-09-08 14:05] VITALS: BP 133/89; PULSE 67
--- NOTE | 2022-09-08 14:15 | P.GSCN ---
History of Present Illness Consult date: 09/08/22 Reason for Consult: Bowel obstruction History of present illness: This is a 68-year-old female who has previous history of metastatic colon can cer. Patient has known metastatic colon cancer which involves liver peritoneum and lung. Patient is currently receiving chemotherapy. Patient had complaints of abdominal pain. Patient's daughter brought her to the emergency. Patient currently states she has no pain. Her CAT scan is very suspicious for colonic obstruction. There is evidence of some pneumatosis of the colon. The colon is dilated. Past Medical History Past Medical History: Cancer, Hypertension Additional Past Medical History / Comment(s): colon ca with mets( liver,lung,lining of stomach) History of Any Multi-Drug Resistant Organisms: None Reported Past Surgical History: Section Additional Past Surgical History / Comment(s): Liver biopsy, port placed 07/15/2022 at [facility], paracentesis Past Anesthesia/Blood Transfusion Reactions: No Reported Reaction Past Psychological History: No Psychological Hx Reported Smoking Status: Never smoker Past Alcohol Use History: None Reported Past Drug Use History: None Reported - Past Family History Father Family Medical History: Diabetes Mellitus Mother Family Medical History: No Reported History Additional Family Medical History / Comment(s): Mother just , she was 98yrs old. Sister(s) Family Medical History: CVA/TIA Medications and Allergies Home Medications Medication Instructions Recorded Confirmed Type Thiamine [Vitamin B-1] 100 mg PO DAILY 30 Days #30 tab 07/08/22 09/08/22 Rx Ondansetron [Ondansetron Odt] 4 mg PO Q8H PRN 07/11/22 09/08/22 History Prochlorperazine [Compazine] 10 mg PO Q6H PRN 07/11/22 09/08/22 History Ferrous Sulfate [Iron (65 MG 325 mg PO DAILY 08/12/22 09/08/22 History Elemental)] HYDROcodone/APAP 5-325MG [[place] 1 tab PO Q4HR PRN 08/12/22 09/08/22 History 5-325] Loperamide HCl [Loperamide] 2 mg PO DAILY 08/12/22 09/08/22 History Sucralfate [Carafate] 1 gm PO ACHS PRN 08/12/22 09/08/22 History Lidocaine-Prilocaine Cream [Emla 1 applic TOPICAL DAILY PRN 09/08/22 09/08/22 History Cream 2.5%/2.5%] Allergies Allergy/AdvReac Type Severity Reaction Status Date / Time metformin Allergy Vomiting Verified 09/08/22 13:42 Surgical - Exam Vital Signs Temp Pulse Resp BP Pulse Ox 97.7 F 72 16 144/88 100 09/08/22 10:10 09/08/22 10:10 09/08/22 10:10 09/08/22 10:10 09/08/22 10:10 - General no distress, cachectic, chronically ill - Eyes PERRL - ENT normal pinna - Neck no masses - Respiratory normal expansion - Cardiovascular Rhythm: regular - Abdomen Abdomen is tense. The abdomen was distended. There is some mild pain with palpation. There is no rebound or guarding. Results - Labs 09/08/22 11:28 09/08/22 11:28 Abnormal Lab Results - Last 24 Hours (Table) 09/08/22 09/08/22 Range/Units 11:28 11:28 WBC 3.4 L (3.8-10.6) k/uL RBC 3.73 L (3.80-5.40) m/uL Hgb 11.0 L (11.4-16.0) gm/dL RDW 17.2 H (11.5-15.5) % Lymphocytes # 0.7 L (1.0-4.8) k/uL Potassium 2.2 L* (3.5-5.1) mmol/L BUN 29 H (7-17) mg/dL Glucose 104 H (74-99) mg/dL Calcium 8.1 L (8.4-10.2) mg/dL Total Protein 5.9 L (6.3-8.2) g/dL Albumin 2.9 L (3.5-5.0) g/dL Diabetes panel 09/08/22 Range/Units 11:28 Sodium 139 (137-145) mmol/L Potassium 2.2 L* (3.5-5.1) mmol/L Chloride 104 (98-107) mmol/L Carbon Dioxide 27 (22-30) mmol/L BUN 29 H (7-17) mg/dL Creatinine 1.01 (0.52-1.04) mg/dL Glucose 104 H (74-99) mg/dL Calcium 8.1 L (8.4-10.2) mg/dL AST 25 (14-36) U/L ALT 9 (4-34) U/L Alkaline Phosphatase 51 (38-126) U/L Total Protein 5.9 L (6.3-8.2) g/dL Albumin 2.9 L (3.5-5.0) g/dL Calcium panel 09/08/22 Range/Units 11:28 Calcium 8.1 L (8.4-10.2) mg/dL Albumin 2.9 L (3.5-5.0) g/dL Pituitary panel 09/08/22 Range/Units 11:28 Sodium 139 (137-145) mmol/L Potassium 2.2 L* (3.5-5.1) mmol/L Chloride 104 (98-107) mmol/L Carbon Dioxide 27 (22-30) mmol/L BUN 29 H (7-17) mg/dL Creatinine 1.01 (0.52-1.04) mg/dL Glucose 104 H (74-99) mg/dL Calcium 8.1 L (8.4-10.2) mg/dL Adrenal panel 09/08/22 Range/Units 11:28 Sodium 139 (137-145) mmol/L Potassium 2.2 L* (3.5-5.1) mmol/L Chloride 104 (98-107) mmol/L Carbon Dioxide 27 (22-30) mmol/L BUN 29 H (7-17) mg/dL Creatinine 1.01 (0.52-1.04) mg/dL Glucose 104 H (74-99) mg/dL Calcium 8.1 L (8.4-10.2) mg/dL Total Bilirubin 0.6 (0.2-1.3) mg/dL AST 25 (14-36) U/L ALT 9 (4-34) U/L Alkaline Phosphatase 51 (38-126) U/L Total Protein 5.9 L (6.3-8.2) g/dL Albumin 2.9 L (3.5-5.0) g/dL - Imaging CT scan - abdomen: report reviewed (Evidence of dilated colon with pneumatosis) Assessment and Plan Plan: 76-year-old female with known metastatic colon cancer. Patient has a large li rdaha bed. She is known peritoneal involvement as well. Dilantin discussion the patient and her daughter in the other daughter on the phone. I discussed the family that she may not survive surgery. At this point the family would like to medical treatment only with comfort care measures. No surgery will be planned at this point.
--- NOTE | 2022-09-08 16:47 | P.PN ---
Progress Note - Text Progress Note Date: 09/08/22 discussed case with patient an family they would like to be admitted to hospice. Please see hospice chart for H and P.
[2022-09-09] MEDS ORDERED: PANTOPRAZOLE 40 MG/10 ML VIAL IV SCH (09:00)
== END 2022-09-08 16:15 | disposition other institution (70) ==
LOC: EC 10:08 → UNDOADMIN 13:47 → 4SSUR 13:47 → 5NMEDONC 13:47 → 4SSUR 15:07
DX: K56.609 Unspecified intestinal obstruction, unspecified as to partial versus complete obstruction (principal); E87.6 Hypokalemia; C18.9 Malignant neoplasm of colon, unspecified; C78.7 Secondary malignant neoplasm of liver and intrahepatic bile duct; C79.89 Secondary malignant neoplasm of other specified sites; C78.01 Secondary malignant neoplasm of right lung; I10 Essential (primary) hypertension; Z88.8 Allergy status to other drugs, medicaments and biological substances
CPT/HCPCS: 96365 ×2; 96366 ×2; 96375 ×2; 99285; 36415; 93005; 83880; 80053; 82150; 83605; 83690; 85025; 85610; 85730; 71046; 74177; J1940; J3480; J3010; Q9967

== ENCOUNTER 2022-09-08 15:36 | Inpatient (IN) | payer MEDICAID, MEDICARE, OTHER ==
[2022-09-08] MEDS ORDERED: ONDANSETRON 4 MG/2 ML VIAL IVP PRN (15:53)
[2022-09-08] MEDS ORDERED: ATROPINE OPHTH SOLN 1% 5ML BTL SUBLINGUAL PRN (15:53)
[2022-09-08] MEDS ORDERED: DRY MOUTH SPRAY 44.3 SPRAY/44.3 ML SPRAY MUCOUS MEM PRN (15:53)
[2022-09-08] MEDS ORDERED: GLYCOPYRROLATE 0.2 MG/ML 2 ML VIAL IVP PRN (15:53)
[2022-09-08] MEDS ORDERED: METOCLOPRAMIDE 5 MG/ML 2 ML VIAL IVP PRN (15:53)
[2022-09-08] MEDS ORDERED: LORazepam 2 MG/ML INJ IV PRN (15:53)
--- NOTE | 2022-09-08 16:46 | P.HPIM ---
History of Present Illness H&P Date: 09/08/22 Patient is a 68-year-old female with metastatic colon cancer metastases to the lungs, peritoneum, and liver, recurrent malignant ascites, and hypertension who presented to the ER with complaints of abdominal pain. In the ER she underwent an extensive evaluation. Vital signs within normal limits. Laboratory analysis showed pancytopenia, potassium 2.2, and albumin 2.9. Chest x-ray demonstrated right upper lobe atelectasis or infiltrate with small pleural effusion, bilateral pulmonary masses or suspected with mediastinal and upper limit of normal. CT abdomen and pelvis was obtained which showed dilated colon with multiple air-fluid levels and pneumatosis intestinalis secondary to infarcted bowel. Hepatic metastasis on the CT were smaller than normal and there was some ascites. Dr. Hodge saw the patient in the ER and recommended nonoperative treatment with hospice. We're called to admit the patient. Patient seen and examined at bedside. She denies any pain at this time. She was having significant amounts of pain yesterday and this morning. She denies any nausea or vomiting. She denies any diarrhea. She has had an extremely poor appetite and has not eaten much in the last 2 days. She was undergoing chemotherapy up until this point. She had a headache earlier today with this since resolved. I was able to discuss the case with her daughter who was in the room as well as multiple family members over the phone. We discussed hospice care and what it entails they would like to meet with hospice and sign-on. There are a agree that they would not Pertinent positives and negatives as discussed in HPI, a complete review of systems was performed and all other systems are negative. Vital signs reviewed General: nontoxic, no distress, appears at stated age Derm: warm, dry Head: atraumatic, normocephalic, symmetric Eyes: EOMI, no lid lag, anicteric sclera, pupils equal round reactive to light ENT: Nose and ears atraumatic, no thrush, no pharyngeal erythema Neck: No thyromegaly, no cervical lymphadenopathy, trachea midline, supple Mouth: no lip lesion, mucus membranes moist Cardiovascular: S1S2 reg, no murmur, positive posterior tibial pulse bilateral, no edema, capillary refill less than 2 seconds Lungs: clear to auscultation bilateral, no rhonchi, no rales, no wheeze, no accessory muscle use Abdominal: soft, nontender to palpation, no guarding, no appreciable organomegaly, normal bowel sounds Ext: no gross muscle atrophy, muscle strength 5 out of 5 in all 4 extremities, no contractures Neuro: CN II-XII grossly intact, light touch intact all 4 extremities, finger to nose within normal limits, Psych: Alert, oriented, appropriate affect Assessment/Plan: Pneumatosis intestinalis 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 - Patient admitted to [facility]. Start fentanyl patch, morphine gtt and comfort medications. Past Medical History Past Medical History: Cancer, Hypertension Additional Past Medical History / Comment(s): colon ca with mets(liver,lung,lining of stomach) History of Any Multi-Drug Resistant Organisms: None Reported Past Surgical History: Section Additional Past Surgical History / Comment(s): Liver biopsy, port placed 07/15/2022 at [facility], paracentesis Past Anesthesia/Blood Transfusion Reactions: No Reported Reaction Past Psychological History: No Psychological Hx Reported Smoking Status: Never smoker Past Alcohol Use History: None Reported Past Drug Use History: None Reported - Past Family History Father Family Medical History: Diabetes Mellitus Mother Family Medical History: No Reported History Additional Family Medical History / Comment(s): Mother just , she was 98yrs old. Sister(s) Family Medical History: CVA/TIA Medications and Allergies Home Medications Medication Instructions Recorded Confirmed Type Thiamine [Vitamin B-1] 100 mg PO DAILY 30 Days #30 tab 07/08/22 09/08/22 Rx Ondansetron [Ondansetron Odt] 4 mg PO Q8H PRN 07/11/22 09/08/22 History Prochlorperazine [Compazine] 10 mg PO Q6H PRN 07/11/22 09/08/22 History Ferrous Sulfate [Iron (65 MG 325 mg PO DAILY 08/12/22 09/08/22 History Elemental)] HYDROcodone/APAP 5-325MG [[place] 1 tab PO Q4HR PRN 08/12/22 09/08/22 History 5-325] Loperamide HCl [Loperamide] 2 mg PO DAILY 08/12/22 09/08/22 History Sucralfate [Carafate] 1 gm PO ACHS PRN 08/12/22 09/08/22 History Lidocaine-Prilocaine Cream [Emla 1 applic TOPICAL DAILY PRN 09/08/22 09/08/22 History Cream 2.5%/2.5%] Allergies Allergy/AdvReac Type Severity Reaction Status Date / Time metformin Allergy Vomiting Verified 09/08/22 13:42 Physical Exam Osteopathic Statement: *. No significant issues noted on an osteopathic structural exam other than those noted in the History and Physical/Consult. Vitals: Vital Signs Pulse Resp BP Pulse Ox 09/08/22 16:08 86 16 149/98 09/08/22 15:42 84 16 137/98 100 Intake and Output 09/08/22 09/08/22 09/08/22 06:59 14:59 22:59 Other: Weight 45.359 kg
[2022-09-08] MEDS: MORPHINE SULFATE (100 MG/2 ML) 100 MG in SODIUM CHLORIDE 0.9% 100 ML IV SCH (18:16)
[2022-09-08] MEDS ORDERED: LORazepam 1 MG/0.5 ML VIAL IV PRN (18:36)
[2022-09-08] MEDS: MORPHINE SULFATE 2 MG/ML SYRINGE IV PRN (21:16)
[2022-09-08] MEDS: SODIUM CHLORIDE 0.9% 1,000 ML IV SCH (21:18)
[2022-09-09] MEDS: MORPHINE SULFATE 2 MG/ML SYRINGE IV PRN (03:03)
[2022-09-09 07:37] VITALS: BP 137/82; PULSE 82; RESP 10; TEMP 97.4
--- NOTE | 2022-09-09 13:01 | P.PN ---
Subjective Progress Note Date: 09/09/22 Hospital course: Patient is a 68-year-old female with metastatic colon cancer with metastases to the lungs, peritoneum, and liver, recurrent malignant ascites, and hypertension who presented to the ER on 09/08/22 with complaints of abdominal pain and underwent an extensive evaluation. Vital signs within normal limits. Laboratory analysis showed pancytopenia, potassium 2.2, and albumin 2.9. Chest x-ray demonstrated right upper lobe atelectasis or infiltrate with small pleural effusion, bilateral pulmonary masses or suspected with mediastinal and upper limit of normal. CT abdomen and pelvis was obtained which showed dilated colon with multiple air-fluid levels and pneumatosis intestinalis secondary to infarcted bowel. Hepatic metastasis on the CT were smaller than normal and there was some ascites. Dr. Hodge saw the patient in the ER and recommended nonoperative treatment with hospice as patient was not a surgical candidate. Patient's family made the decision for hospice. Patient was then admitted to [facility] and started on fentanyl patch, morphine gtt and comfort medications.We are consulted for medical management throughout hospitalization. Physical exam: Patient seen and fully evaluated at bedside this morning. Patient lethargic but answering yes and no questions. She denies having any pain or discomfort at this time. RN reports patient was requesting something to eat/drink an order was placed for comfort feeds at this time. Vital signs reviewed General: non toxic, no acute distress, chronically ill with cachectic appearance Derm: warm, dry Head: atraumatic, normocephalic, symmetric Eyes: EOMI, no lid lag, anicteric sclera Mouth: no lip lesion, mucus membranes moist Cardiovascular: S1S2 reg, systolic murmur, positive posterior tibial pulse bilateral, Lungs: CTA bilateral, no rhonchi, no rales , no accessory muscle use Abdominal: firm distended abdomen, with diffuse tenderness upon palpation Ext: no gross muscle atrophy, bilateral lower extremity edema, no contractures Neuro: CN II-XI grossly intact, no focal neuro deficits Psych: Alert and awake, answering yes and no questions appropriately. 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 - Patient admitted to [facility] and to continue comfort measures with fentanyl patch, morphine gtt and comfort medications such as Ativan and Reglan. Sarabjit Morin NP rendered care for this patient independently, reviewed the findings and plan as documented in the note above. I did not physically speak with or examine the patient on this date. Objective - Vital Signs Vital signs: Vital Signs Temp 97.4 F L 09/09/22 07:36 Pulse 82 09/09/22 07:36 Resp 10 L 09/09/22 07:36 BP 137/82 09/09/22 07:36 Pulse Ox 99 09/09/22 07:36 FiO2 Intake & Output 09/08/22 09/09/22 09/09/22 18:59 06:59 18:59 Intake Total 20 22.491 Output Total 50 Balance 20 -27.509 Weight 45.359 kg Intake: Intake, IV Titration 20 22.491 Amount Morphine Sulfate (100 mg/ 22.491 2 ml) 100 mg In Sodium Chloride 0.9% 100 ml @ 1 MG/HR 1.02 mls/hr IV . Q24H ANDREA Rx#:[id number] Sodium Chloride 0.9% 1, 20 000 ml @ 10 mls/hr IV . Q24H ANDREA Rx#:[id number] Output: Urine 50 Other: Voiding Method Indwelling Catheter
[2022-09-09] MEDS: MORPHINE SULFATE (100 MG/2 ML) 100 MG in SODIUM CHLORIDE 0.9% 100 ML IV SCH (17:25)
[2022-09-09] MEDS: SODIUM CHLORIDE 0.9% 1,000 ML IV SCH (17:27)
--- NOTE | 2022-09-10 08:05 | P.DS ---
Providers Date of admission: 09/08/22 16:00 Expected date of discharge: 09/10/22 Attending physician: Sravanthi Tamayo DO Primary care physician: Angelito Nevarez Hospital Course: THIS IS NOT A DISCHARGE SUMMARY BUT A SUMMARY OF CARE PATIENT IS . 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 Hospital Course: Patient is a 68-year-old female with metastatic colon cancer with metastases to the lungs, peritoneum, and liver, recurrent malignant ascites, and hypertension who presented to the ER on 09/08/22 with complaints of abdominal pain and underwent an extensive evaluation. Vital signs within normal limits. Laborato ry analysis showed pancytopenia, potassium 2.2, and albumin 2.9. Chest x-ray demonstrated right upper lobe atelectasis or infiltrate with small pleural effusion, bilateral pulmonary masses or suspected with mediastinal and upper limit of normal. CT abdomen and pelvis was obtained which showed dilated colon with multiple air-fluid levels and pneumatosis intestinalis secondary to infarcted bowel. Hepatic metastasis on the CT were smaller than normal and there was some ascites. Dr. Hodge saw the patient in the ER and recommended nonoperative treatment with hospice as patient was not a surgical candidate. Patient's family made the decision for hospice. Patient was then admitted to [facility] and started on fentanyl patch, morphine gtt and total comfort care. Per nursing documentation, pt with family at bedside. Pt was pronounced on 09/10/22 at 2:03 AM. TIME OF PROUNOUNCED ON 09/10/22 AT 2:03 AM Patient Condition at Discharge: Stable Plan - Discharge Summary Discharge Rx Participant: No New Discharge Prescriptions: No Action Prochlorperazine [Compazine] 10 mg PO Q6H PRN PRN Reason: Nausea Loperamide HCl [Loperamide] 2 mg PO DAILY HYDROcodone/APAP 5-325MG [Corrigan 5-325] 1 tab PO Q4HR PRN PRN Reason: Moderate Pain Thiamine [Vitamin B-1] 100 mg PO DAILY 30 Days #30 tab Ondansetron [Ondansetron Odt] 4 mg PO Q8H PRN PRN Reason: Nausea Sucralfate [Carafate] 1 gm PO ACHS PRN PRN Reason: Gi Upset Ferrous Sulfate [Iron (65 MG Elemental)] 325 mg PO DAILY Lidocaine-Prilocaine Cream [Emla Cream 2.5%/2.5%] 1 applic TOPICAL DAILY PRN PRN Reason: port access Discharge Medication List Thiamine [Vitamin B-1] 100 mg PO DAILY 30 Days #30 tab 07/08/22 [Rx] Ondansetron [Ondansetron Odt] 4 mg PO Q8H PRN 07/11/22 [History] Prochlorperazine [Compazine] 10 mg PO Q6H PRN 07/11/22 [History] Ferrous Sulfate [Iron (65 MG Elemental)] 325 mg PO DAILY 08/12/22 [History] HYDROcodone/APAP 5-325MG [Corrigan 5-325] 1 tab PO Q4HR PRN 08/12/22 [History] Loperamide HCl [Loperamide] 2 mg PO DAILY 08/12/22 [History] Sucralfate [Carafate] 1 gm PO ACHS PRN 08/12/22 [History] Lidocaine-Prilocaine Cream [Emla Cream 2.5%/2.5%] 1 applic TOPICAL DAILY PRN 09/08/22 [History] Follow up Appointment(s)/Referral(s): Angelito Nevarez MD [Primary Care Provider] - 1 Week Discharge Disposition: - Preliminary Cause of Preliminary Cause of : PNEMATOSIS INTESTINALIS S/T INFARCTED BOWEL RESULTING FROM COLON CANCER
== END 2022-09-10 03:00 | disposition expired | DRG 951 ==
LOC: EC 15:36 → 4SSUR 16:00
PROVIDERS: ADMIT Internal Medicine; ATTEND Internal Medicine
DX: Z51.5 Encounter for palliative care (principal); E43 Unspecified severe protein-calorie malnutrition; R18.0 Malignant ascites; D61.818 Other pancytopenia; K59.39 Other megacolon; C18.9 Malignant neoplasm of colon, unspecified; C78.00 Secondary malignant neoplasm of unspecified lung; C78.6 Secondary malignant neoplasm of retroperitoneum and peritoneum; C78.7 Secondary malignant neoplasm of liver and intrahepatic bile duct; Z68.1 Body mass index [BMI] 19.9 or less, adult; K63.89 Other specified diseases of intestine; D69.59 Other secondary thrombocytopenia; I10 Essential (primary) hypertension; D64.81 Anemia due to antineoplastic chemotherapy; E87.6 Hypokalemia; T45.1X5A Adverse effect of antineoplastic and immunosuppressive drugs, initial encounter; Z66 Do not resuscitate; Z28.311 Partially vaccinated for COVID-19